=== PATIENT | male | born 1930 | race Caucasian/White ===

== ENCOUNTER 2016-11-14 16:27 | Emergency (ER) | payer MEDICARE, BC ==
--- NOTE | 2016-11-14 17:08 | ED ---
Psych HPI - General Chief Complaint: Psychiatric Symptoms Stated Complaint: Psych Eval Time Seen by Provider: 11/14/16 16:50 Source: patient, family, RN notes reviewed Mode of arrival: ambulatory - History of Present Illness Initial Comments: This 86-year-old male with no prior history of dementia or psychiatric disorder but there is a strong family history of dementia and about his age who was brought in by family for evaluation. 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 He did no reports of fevers chills sweats or head trauma however. No focal weakness to his arms or legs. MD Complaint: altered mental status - Related Data Home Medications Medication Instructions Recorded Confirmed Donepezil [Aricept] 10 mg PO W/SUPPER 04/15/15 11/14/16 Memantine HCl [Namenda Xr] 28 mg PO DAILY 04/15/15 11/14/16 Telmisartan 80 mg PO DAILY 04/15/15 11/14/16 Naproxen Sodium [Aleve] 440 mg PO HS PRN 11/14/16 11/14/16 Previous Rx's Medication Instructions Recorded Acetaminophen Tab [Tylenol] 650 mg PO Q6HR PRN #0 tab 04/16/15 ALPRAZolam [Xanax] 0.25 mg PO DAILY PRN #10 tab 11/14/16 Allergies Allergy/AdvReac Type Severity Reaction Status Date / Time No Known Allergies Allergy Verified 11/14/16 17:11 Review of Systems ROS Statement: Those systems with pertinent positive or pertinent negative responses have been documented in the HPI. ROS Other: All systems not noted in ROS Statement are negative. Past Medical History Past Medical History: Dementia, Eye Disorder, GERD/Reflux, Hypertension, Memory Impairment Additional Past Medical History / Comment(s): kidney stone, cataracts History of Any Multi-Drug Resistant Organisms: None Reported Past Surgical History: Appendectomy, Back Surgery, Cholecystectomy Additional Past Surgical History / Comment(s): kidney stone removed Past Anesthesia/Blood Transfusion Reactions: No Reported Reaction Past Psychological History: No Psychological Hx Reported Additional Psychological History / Comment(s): pt is retired, lives at home with his . pt has dementia but is able to read/write and care for self at home but has memeory problems. Smoking Status: Never smoker Past Alcohol Use History: None Reported Past Drug Use History: None Reported - Past Family History Father Family Medical History: Cancer, Dementia Additional Family Medical History / Comment(s): lung/throat cancer General Exam - General Exam Comments Initial Comments: This a well-developed well-nourished awake alert but somewhat confused male Limitations: altered mental status General appearance: alert, in no apparent distress Head exam: Present: atraumatic, normocephalic, normal inspection Eye exam: Present: normal appearance, PERRL, EOMI. Absent: scleral icterus, conjunctival injection, periorbital swelling ENT exam: Present: normal exam Neck exam: Present: normal inspection. Absent: tenderness, meningismus, lymphadenopathy Respiratory exam: Present: normal lung sounds bilaterally. Absent: respiratory distress, wheezes, rales, rhonchi, stridor Cardiovascular Exam: Present: regular rate, normal rhythm, normal heart sounds. Absent: systolic murmur, diastolic murmur, rubs, gallop, clicks GI/Abdominal exam: Present: soft, normal bowel sounds. Absent: distended, tenderness, guarding, rebound, rigid Extremities exam: Present: normal inspection, full ROM, normal capillary refill. Absent: tenderness, pedal edema, joint swelling, calf tenderness Back exam: Present: normal inspection Neurological exam: Present: alert, oriented X3, CN II-XII intact Psychiatric exam: Present: agitated, flat affect Skin exam: Present: warm, dry, intact, normal color. Absent: rash Course Vital Signs 11/14/16 11/14/16 16:41 19:20 Temperature 98.4 F Pulse Rate 98 56 L Respiratory 20 18 Rate Blood Pressure 221/109 149/78 O2 Sat by Pulse 99 100 Oximetry Medical Decision Making - Medical Decision Making The patient was evaluated by psychiatric service he currently a risk to himself or anyone else he'll be discharged with outpatient follow-up he will be placed on Xanax 0.25 mg when necessary - Lab Data Result diagrams: 11/14/16 17:30 11/14/16 17:30 Lab Results 11/14/16 11/14/16 11/14/16 Range/Units 17:30 17:30 17:30 WBC 8.0 (3.8-10.6) k/uL RBC 4.08 L (4.30-5.90) m/uL Hgb 13.1 (13.0-17.5) gm/dL Hct 39.2 (39.0-53.0) % MCV 96.0 (80.0-100.0) fL MCH 32.2 (25.0-35.0) pg MCHC 33.6 (31.0-37.0) g/dL RDW 13.0 (11.5-15.5) % Plt Count 189 (150-450) k/uL Neutrophils % 74 % Lymphocytes % 16 % Monocytes % 7 % Eosinophils % 1 % Basophils % 1 % Neutrophils # 5.9 (1.3-7.7) k/uL Lymphocytes # 1.3 (1.0-4.8) k/uL Monocytes # 0.5 (0-1.0) k/uL Eosinophils # 0.1 (0-0.7) k/uL Basophils # 0.0 (0-0.2) k/uL Sodium 142 (137-145) mmol/L Potassium 3.9 (3.5-5.1) mmol/L Chloride 100 (98-107) mmol/L Carbon Dioxide 31 H (22-30) mmol/L Anion Gap 11 mmol/L BUN 22 H (9-20) mg/dL Creatinine 1.33 H (0.66-1.25) mg/dL Est GFR (MDRD) Af Amer >60 (>60 ml/min/1.73 sqM) Est GFR (MDRD) Non-Af 51 (>60 ml/min/1.73 sqM) Glucose 98 (74-99) mg/dL Calcium 9.5 (8.4-10.2) mg/dL Magnesium 1.9 (1.6-2.3) mg/dL Total Bilirubin 1.1 (0.2-1.3) mg/dL AST 20 (17-59) U/L ALT 36 (21-72) U/L Alkaline Phosphatase 104 (38-126) U/L Total Creatine Kinase 155 (55-170) U/L CK-MB (CK-2) 2.8 H* (0.0-2.4) ng/mL CK-MB (CK-2) Rel Index 1.8 Total Protein 6.9 (6.3-8.2) g/dL Albumin 4.3 (3.5-5.0) g/dL TSH 1.700 (0.465-4.680) mIU/L Urine Color Urine Appearance (Clear) Urine pH (5.0-8.0) Ur Specific [place] (1.001-1.035) Urine Protein (Negative) Urine Glucose (UA) (Negative) Urine Ketones (Negative) Urine Blood (Negative) Urine Nitrate (Negative) Urine Bilirubin (Negative) Urine Urobilinogen (<2.0) mg/dL Ur Leukocyte Esterase (Negative) Urine RBC (0-5) /hpf Ur Squamous Epith Cells (0-4) /hpf Urine Bacteria (None) /hpf Hyaline Casts (0-2) /lpf Urine Mucus (None) /hpf Urine Opiates Screen (NotDetected) Ur Oxycodone Screen (NotDetected) Urine Methadone Screen (NotDetected) Ur Propoxyphene Screen (NotDetected) Ur Barbiturates Screen (NotDetected) U Tricyclic Antidepress (NotDetected) Ur Phencyclidine Scrn (NotDetected) Ur Amphetamines Screen (NotDetected) U Methamphetamines Scrn (NotDetected) U Benzodiazepines Scrn (NotDetected) Urine Cocaine Screen (NotDetected) U Marijuana (THC) Screen (NotDetected) Serum Alcohol <10 mg/dL 11/14/16 11/14/16 Range/Units 19:26 19:26 WBC (3.8-10.6) k/uL RBC (4.30-5.90) m/uL Hgb (13.0-17.5) gm/dL Hct (39.0-53.0) % MCV (80.0-100.0) fL MCH (25.0-35.0) pg MCHC (31.0-37.0) g/dL RDW (11.5-15.5) % Plt Count (150-450) k/uL Neutrophils % % Lymphocytes % % Monocytes % % Eosinophils % % Basophils % % Neutrophils # (1.3-7.7) k/uL Lymphocytes # (1.0-4.8) k/uL Monocytes # (0-1.0) k/uL Eosinophils # (0-0.7) k/uL Basophils # (0-0.2) k/uL Sodium (137-145) mmol/L Potassium (3.5-5.1) mmol/L Chloride (98-107) mmol/L Carbon Dioxide (22-30) mmol/L Anion Gap mmol/L BUN (9-20) mg/dL Creatinine (0.66-1.25) mg/dL Est GFR (MDRD) Af Amer (>60 ml/min/1.73 sqM) Est GFR (MDRD) Non-Af (>60 ml/min/1.73 sqM) Glucose (74-99) mg/dL Calcium (8.4-10.2) mg/dL Magnesium (1.6-2.3) mg/dL Total Bilirubin (0.2-1.3) mg/dL AST (17-59) U/L ALT (21-72) U/L Alkaline Phosphatase (38-126) U/L Total Creatine Kinase (55-170) U/L CK-MB (CK-2) (0.0-2.4) ng/mL CK-MB (CK-2) Rel Index Total Protein (6.3-8.2) g/dL Albumin (3.5-5.0) g/dL TSH (0.465-4.680) mIU/L Urine Color Yellow Urine Appearance Cloudy (Clear) Urine pH 5.5 (5.0-8.0) Ur Specific [place] 1.015 (1.001-1.035) Urine Protein Trace H (Negative) Urine Glucose (UA) Negative (Negative) Urine Ketones Negative (Negative) Urine Blood Negative (Negative) Urine Nitrate Negative (Negative) Urine Bilirubin Negative (Negative) Urine Urobilinogen <2.0 (<2.0) mg/dL Ur Leukocyte Esterase Negative (Negative) Urine RBC 12 H (0-5) /hpf Ur Squamous Epith Cells <1 (0-4) /hpf Urine Bacteria Many H (None) /hpf Hyaline Casts 2 (0-2) /lpf Urine Mucus Rare H (None) /hpf Urine Opiates Screen Not Detected (NotDetected) Ur Oxycodone Screen Not Detected (NotDetected) Urine Methadone Screen Not Detected (NotDetected) Ur Propoxyphene Screen Not Detected (NotDetected) Ur Barbiturates Screen Not Detected (NotDetected) U Tricyclic Antidepress Not Detected (NotDetected) Ur Phencyclidine Scrn Not Detected (NotDetected) Ur Amphetamines Screen Not Detected (NotDetected) U Methamphetamines Scrn Not Detected (NotDetected) U Benzodiazepines Scrn Not Detected (NotDetected) Urine Cocaine Screen Not Detected (NotDetected) U Marijuana (THC) Screen Not Detected (NotDetected) Serum Alcohol mg/dL - EKG Data -: EKG Interpreted by Me (Atrial fibrillation rate is 73 QRS of 98 daily since QTC of 432/475 old inf) - Radiology Data Radiology results: report reviewed (Exam was unremarkable), image reviewed Disposition Clinical Impression: Dementia Disposition: HOME SELF-CARE Condition: Good Instructions: Dementia (ED) Prescriptions: ALPRAZolam [Xanax] 0.25 mg PO DAILY PRN #10 tab PRN Reason: Anxiety
[2016-11-14 17:46] LABS: Basophils % (A) 1 %; CH 32.9; CHCM 34.5; Eosinophils # (A) 0.1 k/uL (0-0.7); Eosinophils % (A) 1 %; HCT 39.2 % (39.0-53.0); HDW 2.81; HGB 13.1 gm/dL (13.0-17.5); Luc # (Auto) 0.15; Luc % (Auto) 2; Lymphocytes # (A) 1.3 k/uL (1.0-4.8); Lymphocytes % (A) 16 %; MCH 32.2 pg (25.0-35.0); MCHC 33.6 g/dL (31.0-37.0); Mean Platelet Volume 7.6; Monocytes # (A) 0.5 k/uL (0-1.0); Monocytes % (A) 7 %; Neutrophils # (A) 5.9 k/uL (1.3-7.7); Neutrophils % (A) 74 %; RBC 4.08 m/uL (4.30-5.90); WBC (Perox) 8.15
[2016-11-14 17:55] LABS: ALT 36 U/L (21-72); AST 20 U/L (17-59); Alcohol <10 mg/dL; Alkaline Phosphatase 104 U/L (38-126); Anion Gap 11 mmol/L; Blood Urea Nitrogen 22 mg/dL (9-20); Calcium 9.5 mg/dL (8.4-10.2); Carbon Dioxide 31 mmol/L (22-30); Chloride 100 mmol/L (98-107); Glucose 98 mg/dL (74-99); Magnesium 1.9 mg/dL (1.6-2.3); Non-African American GFR(MDRD) 51 (>60 ml/min/1.73 sqM); Potassium 3.9 mmol/L (3.5-5.1); Sodium 142 mmol/L (137-145); Total Bilirubin 1.1 mg/dL (0.2-1.3); Total Protein 6.9 g/dL (6.3-8.2)
[2016-11-14 18:25] LABS: Creatine Kinase MB 2.8 ng/mL (0.0-2.4)
--- NOTE | 2016-11-14 18:34 | XR ---
EXAMINATION TYPE: XR chest 2V DATE OF EXAM: 11/14/2016 6:13 PM COMPARISON: Prior chest x-ray 15 April 2015 HISTORY: Trauma, altered mental status TECHNIQUE: Frontal and lateral views of the chest are obtained. FINDINGS: The patient is rotated. Postop changes are noted at the cervicothoracic junction. No pneum othorax or pleural effusion is evident. There is eventration of the right hemidiaphragm. Cardiomedias tinal silhouette, pulmonary vascularity and sunitha are stable. Prominent lung volume may be indicative of COPD. IMPRESSION: No acute cardiopulmonary process.
--- NOTE | 2016-11-14 18:51 | CT ---
EXAMINATION TYPE: CT brain wo con DATE OF EXAM: 11/14/2016 6:42 PM COMPARISON: Prior CT brain 15 April 2015 HISTORY: Altered mental status. CT DLP: 1225.00 mGycm Automated exposure control for dose reduction was used. FINDINGS: There is no acute intracranial hemorrhage, mass effect, or midline shift identified. The ventricles and sulci are within normal limits in size. Cortical atrophy is again noted. White matter demyelinati on in the periventricular locations is again seen. The globes are intact and the visualized sinuses are clear. IMPRESSION: No acute intracranial hemorrhage, mass effect, or midline shift is seen.
[2016-11-14 19:20] VITALS: RESP 18
[2016-11-14 20:12] LABS: Appearance,Urine Cloudy (Clear); Bacteria,Urine Many /hpf; Bilirubin,Urine Negative (Negative); Glucose,Urine (UA) Negative (Negative); Ketones,Urine Negative (Negative); Leukocyte Esterase,Urine Negative (Negative); Mucus,Urine Rare /hpf; Nitrite,Urine Negative (Negative); PH, Urine 5.5 (5.0-8.0); Particle Count 5964; Protein,Urine Trace (Negative); RBC,Urine 12 /hpf (0-5); Specific Gravity,Urine 1.015 (1.001-1.035); Squamous Epithelial Cell,Urine <1 /hpf (0-4); UA Billing (MACRO vs. MICRO) MICRO; Urobilinogen,Urine <2.0 mg/dL (<2.0)
[2016-11-14] MEDS ORDERED: ALPRAZolam 0.25 MG TAB PO STA (21:15)
[2016-11-14 21:32] VITALS: BP 171/82; PULSE 85; TEMP 97.4
== END 2016-11-14 21:43 | disposition home or self-care (01) ==
LOC: EC 16:27
DX: F03.90 Unspecified dementia, unspecified severity, without behavioral disturbance, psychotic disturbance, mood disturbance, and anxiety (principal); I10 Essential (primary) hypertension; Z79.899 Other long term (current) drug therapy
CPT/HCPCS: 36415; 70450; 71020; 80053; 80306; 80320; 81001; 82550; 82553; 83735; 84443; 85025; 93005; 99285

== ENCOUNTER 2017-02-26 21:26 | Inpatient (IN) | payer MEDICARE, BC ==
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
[2017-02-26 22:54] LABS: Basophils % (A) 0 %; CHCM 33.7; Eosinophils # (A) 0.1 k/uL (0-0.7); Eosinophils % (A) 1 %; HCT 35.2 % (39.0-53.0); HDW 2.67; HGB 11.8 gm/dL (13.0-17.5); Luc # (Auto) 0.17; Luc % (Auto) 3; Lymphocytes # (A) 1.2 k/uL (1.0-4.8); Lymphocytes % (A) 17 %; MCH 33.1 pg (25.0-35.0); MCHC 33.6 g/dL (31.0-37.0); MCV 98.6 fL (80.0-100.0); Mean Platelet Volume 7.3; Monocytes # (A) 0.4 k/uL (0-1.0); Monocytes % (A) 6 %; Neutrophils # (A) 4.9 k/uL (1.3-7.7); Neutrophils % (A) 73 %; RBC 3.57 m/uL (4.30-5.90); RDW 13.1 % (11.5-15.5); WBC 6.7 k/uL (3.8-10.6)
--- NOTE | 2017-02-26 22:57 | CT ---
INDICATION: Pain TECHNIQUE: CT acquisition was performed through the head without the administration of intravenous contrast. This CT exam was performed using one or more of the following dose reduction techniques: automated exposure control, adjustment of the mA and/or kV according to patient size, and/or use of iterative reconstruction technique. DOSIMETRY: CTDIvol 58 mGy; DLP 1179.80 mGy-cm. COMPARISON: CT head 11/14/16 FINDINGS: There is no evidence of acute intracranial hemorrhage or abnormal extra-axial fluid collection. There is no mass effect or midline shift. There is central and cortical cerebral atrophy and cerebellar atrophy, similar to prior exam. Patchy hypoattenuation in the cerebral white matter is compatible with chronic small vessel ischemic disease. Giles-white matter differentiation is preserved. There is intracranial atherosclerosis. There is no evidence of skull fracture. The visualized paranasal sinuses and mastoid air cells are clear. IMPRESSION: 1. No significant interval change from prior CT. No evidence of acute intracranial process.
[2017-02-26 23:10] LABS: ALT 30 U/L (21-72); AST 23 U/L (17-59); Alkaline Phosphatase 95 U/L (38-126); Anion Gap 8 mmol/L; Appearance,Urine Cloudy (Clear); Bacteria,Urine Rare /hpf; Bilirubin,Urine Negative (Negative); Blood Urea Nitrogen 26 mg/dL (9-20); Carbon Dioxide 29 mmol/L (22-30); Chloride 103 mmol/L (98-107); Glucose 102 mg/dL (74-99); Glucose,Urine (UA) Negative (Negative); Ketones,Urine Negative (Negative); Leukocyte Esterase,Urine Trace (Negative); Magnesium 1.9 mg/dL (1.6-2.3); Mucus,Urine Few /hpf; Nitrite,Urine Negative (Negative); Non-African American GFR(MDRD) 57 (>60 ml/min/1.73 sqM); PH, Urine 5.5 (5.0-8.0); Particle Count 9638; Potassium 3.8 mmol/L (3.5-5.1); Protein,Urine Trace (Negative); RBC,Urine 9 /hpf (0-5); Sodium 140 mmol/L (137-145); Squamous Epithelial Cell,Urine 2 /hpf (0-4); Total Bilirubin 1.1 mg/dL (0.2-1.3); Total Protein 6.2 g/dL (6.3-8.2); UA Billing (MACRO vs. MICRO) MICRO; Urobilinogen,Urine <2.0 mg/dL (<2.0); WBC,Urine 15 /hpf (0-5)
--- NOTE | 2017-02-26 23:13 | XR ---
Chest PA and lateral views INDICATION: Dyspnea COMPARISON: CXR 11/14/16 FINDINGS: PA and lateral views of the chest are obtained. Redemonstrated flattening of the hemidiaphragms suggests underlying chronic obstructive pulmonary disease. Lung volumes are mildly decreased in comparison to prior exam with increased bibasilar interstitial markings most likely representing subsegmental atelectasis. There is no confluent airspace consolidation, pleural effusion, or pneumothorax. Cardiomediastinal silhouette remains stable. There are no acute osseous findings. There is been prior ACDF in the lower cervical spine. IMPRESSION: 1. Reduced lung volumes with bibasilar subsegmental atelectasis. 2. COPD, as suggested on prior exam.
[2017-02-27] MEDS ORDERED: LORazepam 1 MG TAB PO STA (01:03)
[2017-02-27] MEDS ORDERED: LORazepam 2 MG/ML SYRINGE IM STA (02:20)
[2017-02-27] MEDS ORDERED: LORazepam 1 MG TAB PO PRN (04:42)
[2017-02-27] MEDS ORDERED: MAGNESIUM HYDROXIDE 2,400 MG/10 ML CUP PO PRN (04:42)
[2017-02-27] MEDS ORDERED: MAG HYDROX/AL HYDROX/SIMETH 30 ML CUP PO PRN (04:42)
[2017-02-27] MEDS ORDERED: ACETAMINOPHEN TAB 325 MG TAB PO PRN (04:42)
[2017-02-27] MEDS ORDERED: ZIPRASIDONE 20 MG VIAL IM PRN (04:42)
[2017-02-27] MEDS ORDERED: guaiFENesin 600 MG TABLET.ER PO PRN (04:47)
[2017-02-27] MEDS ORDERED: LORazepam 2 MG/ML SYRINGE IM PRN (04:50)
[2017-02-27] MEDS: CHOLECALCIFEROL 1,000 UNIT TAB PO SCH (09:47)
[2017-02-27] MEDS: LOSARTAN 50 MG TAB PO SCH (09:47)
[2017-02-27] MEDS: CYANOCOBALAMIN 500 MCG TAB PO SCH (09:47)
[2017-02-27] MEDS: FOLIC ACID 1 MG TAB PO SCH (09:47)
[2017-02-27] MEDS: MEMANTINE 10 MG TAB PO SCH ×2 (09:48→21:07)
[2017-02-27] MEDS: FAMOTIDINE 20 MG TAB PO SCH (09:49)
[2017-02-27] MEDS ORDERED: FLUoxetine HCL 10 MG CAP PO STA (10:50)
[2017-02-27] MEDS ORDERED: OLANZapine 2.5 MG TAB PO STA (10:51)
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
[2017-02-27 14:25] LABS: Magnesium 1.9 mg/dL (1.6-2.3)
[2017-02-27] MEDS ORDERED: DONEPEZIL 10 MG TAB PO SCH (17:30)
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
[2017-02-27] MEDS: OLANZapine 2.5 MG TAB PO SCH (21:07)
[2017-02-28] MEDS: OLANZapine 5 MG TAB PO PRN (00:25)
[2017-02-28] MEDS ORDERED: HALOPERIDOL LACTATE 5 MG/ML 1 ML VIAL IM STA (02:35)
[2017-02-28 09:43] LABS: Basophils % (A) 0 %; CHCM 32.9; Eosinophils # (A) 0.1 k/uL (0-0.7); Eosinophils % (A) 1 %; HCT 36.3 % (39.0-53.0); HDW 2.61; HGB 11.9 gm/dL (13.0-17.5); Luc # (Auto) 0.13; Luc % (Auto) 2; Lymphocytes # (A) 1.2 k/uL (1.0-4.8); Lymphocytes % (A) 19 %; MCH 33.2 pg (25.0-35.0); MCHC 32.8 g/dL (31.0-37.0); MCV 101.2 fL (80.0-100.0); Macrocytosis Slight; Mean Platelet Volume 6.9; Monocytes # (A) 0.3 k/uL (0-1.0); Monocytes % (A) 5 %; Neutrophils # (A) 4.4 k/uL (1.3-7.7); Neutrophils % (A) 73 %; RBC 3.59 m/uL (4.30-5.90); WBC 6.1 k/uL (3.8-10.6); WBC (Perox) 6.73
[2017-02-28 10:11] LABS: ALT 31 U/L (21-72); AST 30 U/L (17-59); Alkaline Phosphatase 96 U/L (38-126); Anion Gap 10 mmol/L; Blood Urea Nitrogen 23 mg/dL (9-20); Calcium 9.2 mg/dL (8.4-10.2); Carbon Dioxide 31 mmol/L (22-30); Chloride 101 mmol/L (98-107); Glucose 135 mg/dL (74-99); Non-African American GFR(MDRD) >60 (>60 ml/min/1.73 sqM); Potassium 3.5 mmol/L (3.5-5.1); Sodium 142 mmol/L (137-145); Total Protein 6.6 g/dL (6.3-8.2)
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
[2017-02-28] MEDS ORDERED: FLUoxetine HCL 10 MG CAP PO SCH (11:00)
[2017-02-28] MEDS: CYANOCOBALAMIN 500 MCG TAB PO SCH (12:30)
[2017-02-28] MEDS: CHOLECALCIFEROL 1,000 UNIT TAB PO SCH (12:30)
[2017-02-28] MEDS: OLANZapine 2.5 MG TAB PO SCH ×2 (12:31→17:41)
[2017-02-28] MEDS: LOSARTAN 50 MG TAB PO SCH (12:31)
[2017-02-28] MEDS: FOLIC ACID 1 MG TAB PO SCH (12:31)
[2017-02-28] MEDS: FAMOTIDINE 20 MG TAB PO SCH (12:31)
[2017-02-28] MEDS: FLUoxetine HCL 10 MG CAP PO SCH (12:31)
[2017-02-28] MEDS: MEMANTINE 10 MG TAB PO SCH ×2 (12:31→21:53)
[2017-02-28] MEDS ORDERED: HALOPERIDOL LACTATE 5 MG/ML 1 ML VIAL IM PRN (16:23)
[2017-02-28] MEDS: FAMCICLOVIR 500 MG TAB PO SCH ×2 (17:41→23:40)
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
[2017-02-28] MEDS ORDERED: amLODIPine 10 MG TAB PO SCH (21:00)
[2017-02-28] MEDS: OLANZapine 5 MG TAB PO SCH (21:53)
[2017-03-01] MEDS: FOLIC ACID 1 MG TAB PO SCH (09:22)
[2017-03-01] MEDS: FAMOTIDINE 20 MG TAB PO SCH (09:22)
[2017-03-01] MEDS: LOSARTAN 50 MG TAB PO SCH (09:22)
[2017-03-01] MEDS: FAMCICLOVIR 500 MG TAB PO SCH ×2 (09:22→17:42)
[2017-03-01] MEDS: FLUoxetine HCL 10 MG CAP PO SCH (09:22)
[2017-03-01] MEDS: CHOLECALCIFEROL 1,000 UNIT TAB PO SCH (09:22)
[2017-03-01] MEDS: CYANOCOBALAMIN 500 MCG TAB PO SCH (09:22)
[2017-03-01] MEDS: MEMANTINE 10 MG TAB PO SCH ×2 (09:23→21:13)
[2017-03-01] MEDS: OLANZapine 2.5 MG TAB PO SCH ×2 (10:13→17:42)
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
[2017-03-01] MEDS: ZINC SULFATE 220 MG CAP PO SCH (12:45)
[2017-03-01] MEDS: OLANZapine 5 MG TAB PO SCH (21:12)
[2017-03-02] MEDS ORDERED: LORazepam 2 MG/ML SYRINGE IM ONE (00:05)
[2017-03-02] MEDS: FAMCICLOVIR 500 MG TAB PO SCH ×4 (02:23→16:41)
[2017-03-02] MEDS ORDERED: amLODIPine 5 MG TAB PO SCH (09:00)
[2017-03-02] MEDS: OLANZapine 2.5 MG TAB PO SCH ×3 (10:25→16:42)
[2017-03-02] MEDS: MEMANTINE 10 MG TAB PO SCH ×3 (10:25→21:08)
[2017-03-02] MEDS: LOSARTAN 50 MG TAB PO SCH (10:25)
[2017-03-02] MEDS: CYANOCOBALAMIN 500 MCG TAB PO SCH ×2 (10:26→13:41)
[2017-03-02] MEDS: CHOLECALCIFEROL 1,000 UNIT TAB PO SCH ×2 (10:26→13:41)
[2017-03-02] MEDS: amLODIPine 5 MG TAB PO SCH ×2 (10:27→13:41)
[2017-03-02] MEDS: OLANZapine 5 MG TAB PO PRN (10:30)
[2017-03-02] MEDS: FAMOTIDINE 20 MG TAB PO SCH ×2 (10:30→13:42)
[2017-03-02] MEDS: FLUoxetine HCL 10 MG CAP PO SCH ×2 (10:30→13:42)
[2017-03-02] MEDS: FOLIC ACID 1 MG TAB PO SCH ×2 (10:30→13:42)
[2017-03-02] MEDS: ZINC SULFATE 220 MG CAP PO SCH (13:34)
--- NOTE | 2017-03-02 15:19 | P.PN ---
Progress Note - Text Interval history: The patient is found in his room he is resting in bed he continues to have one-to-one supervision as he is a fall risk. The patient is verbally arousable he makes brief eye contact. He does not answer any questions in a relevant fashion. He tends to mumble and it seems he is not understanding the question asked. During the course of the day he has been in his room. It appears social work met with the family for a family meeting those notes are reviewed and they are requesting ECF placement. The patient is on Zyprexa to control aggressiveness and psychosis. Mental status exam: The patient is lying in bed he is in no acute distress. He is verbally arousable but appears lethargic. He makes brief eye contact and then closes his eyes again. Speech is nonspontaneous he tries to offer an answer to questions asked but it is not relevant. He is dressed in hospital attire and covered with a blanket. No abnormal involuntary movements observed. Insight and judgment poor. Plan: The patient will continue on his current medication we will monitor for safety vital signs reviewed blood pressure elevated today. The patient is able to get up with staff assistance we will continue the one-to-one supervision for acute fall risk.
[2017-03-02] MEDS: OLANZapine 5 MG TAB PO SCH (21:08)
[2017-03-03] MEDS ORDERED: LORazepam 1 MG TAB PO PRN (00:26)
[2017-03-03] MEDS: FAMCICLOVIR 500 MG TAB PO SCH ×5 (00:43→17:00)
[2017-03-03] MEDS: FAMOTIDINE 20 MG TAB PO SCH ×2 (09:55→10:16)
[2017-03-03] MEDS: CYANOCOBALAMIN 500 MCG TAB PO SCH ×2 (09:56→10:16)
[2017-03-03] MEDS: FLUoxetine HCL 10 MG CAP PO SCH (09:56)
[2017-03-03] MEDS: FOLIC ACID 1 MG TAB PO SCH ×2 (09:56→10:16)
[2017-03-03] MEDS: CHOLECALCIFEROL 1,000 UNIT TAB PO SCH ×2 (09:56→10:14)
[2017-03-03] MEDS: LOSARTAN 50 MG TAB PO SCH (09:56)
[2017-03-03] MEDS: MEMANTINE 10 MG TAB PO SCH ×2 (09:56→20:58)
[2017-03-03] MEDS: amLODIPine 5 MG TAB PO SCH (09:56)
[2017-03-03] MEDS: OLANZapine 2.5 MG TAB PO SCH ×3 (09:57→20:58)
--- NOTE | 2017-03-03 10:45 | P.PN ---
Progress Note - Text Interval history: The patient is found in his room he is in a chair next to his bed he continues to have a health and safety consultant as he remains a fall risk. Nursing reports that the patient has been sedated mostly yesterday through the evening. The patient did not eat yesterday because of sedation but the health and safety consultant is making efforts to keep the patient hydrated. Nursing was able to give the patient his medication with some applesauce. We discussed reducing the dose of Zyprexa. Mental status exam: The patient is lying back in a reclining chair. Eye contact is poor he is verbally arousable more so than yesterday. He mumbles and has irrelevant answers to questions asked. He becomes mildly agitated with questioning but demonstrates no physical aggressiveness. His health and safety consultant states that there was no physical aggressive behavior during her shift. The patient is not oriented to place or date. He is lying comfortably in the chair in no acute distress. Insight and judgment are poor. He does struggle with major neurocognitive symptoms. Plan: We will reduce the Zyprexa 2.5 mg twice daily the morning dose was held. It seems to be a delicate balance between controlling the patient's agitated behavior with medication and not over sedating him. Vital signs reviewed. We will continue to monitor him for safety he will remain on one-to-one supervision. We will continue to monitor his oral input.
[2017-03-03] MEDS: ZINC SULFATE 220 MG CAP PO SCH (13:48)
[2017-03-04] MEDS: FAMCICLOVIR 500 MG TAB PO SCH ×4 (00:46→18:30)
[2017-03-04] MEDS: CYANOCOBALAMIN 500 MCG TAB PO SCH ×2 (10:56→11:06)
[2017-03-04] MEDS: CHOLECALCIFEROL 1,000 UNIT TAB PO SCH ×2 (10:56→11:06)
[2017-03-04] MEDS: amLODIPine 5 MG TAB PO SCH ×2 (10:56→11:06)
[2017-03-04] MEDS: OLANZapine 2.5 MG TAB PO SCH ×2 (10:57→11:07)
[2017-03-04] MEDS: MEMANTINE 10 MG TAB PO SCH ×2 (10:57→11:07)
[2017-03-04] MEDS: LOSARTAN 50 MG TAB PO SCH ×2 (10:57→11:07)
[2017-03-04] MEDS: FOLIC ACID 1 MG TAB PO SCH ×2 (10:57→11:07)
[2017-03-04] MEDS: FLUoxetine HCL 10 MG CAP PO SCH ×2 (11:00→11:07)
[2017-03-04] MEDS: FAMOTIDINE 20 MG TAB PO SCH ×2 (11:00→11:06)
[2017-03-04] MEDS: ZINC SULFATE 220 MG CAP PO SCH (14:25)
--- NOTE | 2017-03-04 15:26 | P.PN ---
Progress Note - Text SUBJECTIVE: I reviewed the medical record, attempted to interview Mr. Jeffries and discuss his treatment and treatment plan during team meeting. He was sleeping in a chair trial when I approached him. His one-to-one sitter was in attendance. He did not respond to his name. OBJECTIVE: He presented as a disheveled and sedated appearing elderly male. He did not respond to his name. His respiration was even. His pulse was 77 and his blood pressure is 161/78. He had an episode of agitation last night and received 1 mg of lorazepam by mouth at 00 43 in addition to his regular dosing of olanzapine 2.5 mg twice a day. 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 He is markedly sedated most likely from a combination of olanzapine and lorazepam. PLAN: Continue inpatient hospitalization pending placement in an extended care facility. Decrease olanzapine to 1.25 mg twice a day for agitation. Continue lorazepam 1 mg by mouth daily at bedtime when necessary for agitation or Anxiety , Haldol 5 mg IM daily when necessary for agitation acute psychosis and is continue Zyprexa 5 mg by mouth twice a day when necessary for agitation or Psychosis. Continue one-to-one.
[2017-03-04] MEDS ORDERED: MIDAZOLAM (PF) 1 MG/ML 5 ML VIAL ONE (16:53)
[2017-03-04 17:20] VITALS: BP 146/88; PULSE 84; RESP 16; TEMP 98.4
[2017-03-04 18:41] LABS: Glucose,Whole Blood 146 mg/dL (75-99)
[2017-03-04] MEDS ORDERED: OLANZapine 2.5 MG TAB PO SCH (21:00)
== END 2017-03-04 18:38 | disposition short-term general hospital (02) | DRG 884 ==
LOC: EC 21:26 → 3MHU 02-27 04:19
PROVIDERS: ADMIT Psychiatry & Neurology Psychiatry; ATTEND Psychiatry & Neurology Psychiatry
DX: F03.91 Unspecified dementia, unspecified severity, with behavioral disturbance (principal); D69.6 Thrombocytopenia, unspecified; I11.9 Hypertensive heart disease without heart failure; N18.3 Chronic kidney disease, stage 3 (moderate); N39.0 Urinary tract infection, site not specified; E86.0 Dehydration; D64.9 Anemia, unspecified; F32.9 Major depressive disorder, single episode, unspecified; K21.9 Gastro-esophageal reflux disease without esophagitis; N40.0 Benign prostatic hyperplasia without lower urinary tract symptoms; Z79.899 Other long term (current) drug therapy; Z91.81 History of falling; B02.9 Zoster without complications
CPT/HCPCS: 36415; 70450; 71020; 80053; 81001; 82103; 82306; 82607; 83735; 84439; 84443; 84481; 84630; 85025; 87086; 96372; 99285

== ENCOUNTER 2017-03-04 18:46 | Inpatient (IN) | payer MEDICARE, BC ==
[2017-03-04] MEDS ORDERED: SODIUM CHLORIDE 0.9% 1,000 ML IV ONE ×2 (19:17→21:15)
[2017-03-04] MEDS ORDERED: PROPOFOL 50 ML IV ONE (19:22)
[2017-03-04] MEDS ORDERED: DILTIAZEM 5 MG/ML 5 ML VIAL IVP STA (19:45)
[2017-03-04 19:53] LABS: Basophils % (A) 0 %; CH 32.7; CHCM 32.3; Eosinophils % (A) 0 %; HCT 34.8 % (39.0-53.0); HDW 2.42; HGB 11.3 gm/dL (13.0-17.5); Luc # (Auto) 0.22; Luc % (Auto) 2; Lymphocytes # (A) 1.1 k/uL (1.0-4.8); Lymphocytes % (A) 9 %; MCHC 32.4 g/dL (31.0-37.0); MCV 101.8 fL (80.0-100.0); Macrocytosis Slight; Mean Platelet Volume 7.1; Monocytes # (A) 0.7 k/uL (0-1.0); Monocytes % (A) 6 %; Neutrophils # (A) 9.6 k/uL (1.3-7.7); Neutrophils % (A) 83 %; RBC 3.42 m/uL (4.30-5.90); RDW 13.1 % (11.5-15.5); WBC 11.6 k/uL (3.8-10.6); WBC (Perox) 12.08
[2017-03-04 19:59] LABS: Calcium 8.2 mg/dL (8.4-10.2); Magnesium 2.1 mg/dL (1.6-2.3); Phosphorous 7.3 mg/dL (2.5-4.5); Potassium 3.9 mmol/L (3.5-5.1); Total Bilirubin 1.2 mg/dL (0.2-1.3)
[2017-03-04] MEDS ORDERED: NALOXONE 0.4 MG/ML 1 ML VIAL IV PRN (19:59)
[2017-03-04] MEDS: SODIUM CHLORIDE 0.9% 1,000 ML IV ONE ×2 (20:00→21:13)
[2017-03-04] MEDS ORDERED: DILTIAZEM 125 MG in SODIUM CHLORIDE 0.9% 100 ML IV SCH (20:00)
[2017-03-04 20:05] LABS: ABG PCO2 44 mmHg (35-45); ABG PH 7.28 (7.35-7.45)
[2017-03-04 20:08] LABS: ABG Base Excess -6.1 mmol/L; ABG HCO3 20 mmol/L (21-25); ABG PO2 308 mmHg (83-108); ABG TCO2 14 mmol/L (19-24)
--- NOTE | 2017-03-04 20:55 | XR ---
EXAMINATION TYPE: XR chest 1V DATE OF EXAM: 03/04/2017 8:43 PM COMPARISON: February 26, 2017 HISTORY: Line placement TECHNIQUE: Single frontal view of the chest is obtained. FINDINGS: Patient is been intubated since the prior study, with the tip of the ET tube projecting ju st caudal to the level of the clavicular heads. There are no abnormal gas collections. Lungs appear clear bilaterally. Pleural spaces are negative. Giles-white mediastinal silhouette and wendi adam are unremarkable. The hemidiaphragms are elevated consistent with low lung inflation at the moment of x-ray exposure. IMPRESSION: No acute process - postintubation chest x-ray.
--- NOTE | 2017-03-04 21:10 | ED ---
Medical Decision Making - Medical Decision Making I was called to the floor for a medical code on the psychiatric unit. Upon arrival, the patient is unresponsive with significant difficulty in breathing and very slow respirations. His heart rate was quite tachycardiac up to 170 at one point. It initially looked regular but then was irregular. He apparently had been admitted into the psychiatric unit for the last 5 days. History relates that he had decreased oral intake. They found him unresponsive with a hard time breathing. Decision was made to initiate endotracheal intubation. The patient was intubated by the anesthesia team successfully. This did help to stabilize his condition. He had significant watery brown diarrhea prior to and after intubation. An IV was established and he was hydrated. His heart rate did come down to approximately 115 on last recheck. His EKG shows atrial fibrillation with rapid ventricular response. The patient was transported to the intensive care unit. He was oxygenating well on recheck. He did receive Versed 5 mg per anesthesia. Blood work, EKG, and computed tomography scan of the brain was ordered. Report is given to Dr. Farr and further care is deferred to his service in the intensive care unit team. - Lab Data Result diagrams: 03/04/17 19:38 03/04/17 19:38 Lab Results 03/04/17 03/04/17 03/04/17 Range/Units 18:50 19:38 19:38 WBC 11.6 H (3.8-10.6) k/uL RBC 3.42 L (4.30-5.90) m/uL Hgb 11.3 L (13.0-17.5) gm/dL Hct 34.8 L (39.0-53.0) % MCV 101.8 H (80.0-100.0) fL MCH 33.0 (25.0-35.0) pg MCHC 32.4 (31.0-37.0) g/dL RDW 13.1 (11.5-15.5) % Plt Count 166 (150-450) k/uL Neutrophils % 83 % Lymphocytes % 9 % Monocytes % 6 % Eosinophils % 0 % Basophils % 0 % Neutrophils # 9.6 H (1.3-7.7) k/uL Lymphocytes # 1.1 (1.0-4.8) k/uL Monocytes # 0.7 (0-1.0) k/uL Eosinophils # 0.0 (0-0.7) k/uL Basophils # 0.0 (0-0.2) k/uL Macrocytosis Slight Sample Site R RADIAL ABG pH 7.28 L (7.35-7.45) ABG pCO2 44 (35-45) mmHg ABG pO2 308 H (83-108) mmHg ABG HCO3 20 L (21-25) mmol/L ABG Total CO2 14 L (19-24) mmol/L ABG O2 Saturation 99.0 H (94-97) % ABG Base Excess -6.1 mmol/L FiO2 100 % Sodium 138 (137-145) mmol/L Potassium 3.9 (3.5-5.1) mmol/L Chloride 105 (98-107) mmol/L Carbon Dioxide 20 L (22-30) mmol/L Anion Gap 13 mmol/L BUN 76 H (9-20) mg/dL Creatinine 5.21 H* (0.66-1.25) mg/dL Est GFR (MDRD) Af Amer 13 (>60 ml/min/1.73 sqM) Est GFR (MDRD) Non-Af 11 (>60 ml/min/1.73 sqM) Glucose 174 H (74-99) mg/dL Plasma Lactic Acid Misael (0.7-2.0) mmol/L Calcium 8.2 L (8.4-10.2) mg/dL Phosphorus 7.3 H (2.5-4.5) mg/dL Magnesium 2.1 (1.6-2.3) mg/dL Total Bilirubin 1.2 (0.2-1.3) mg/dL AST 48 (17-59) U/L ALT 42 (21-72) U/L Alkaline Phosphatase 98 (38-126) U/L Total Protein 6.0 L (6.3-8.2) g/dL Albumin 3.3 L (3.5-5.0) g/dL 03/04/17 Range/Units 19:38 WBC (3.8-10.6) k/uL RBC (4.30-5.90) m/uL Hgb (13.0-17.5) gm/dL Hct (39.0-53.0) % MCV (80.0-100.0) fL MCH (25.0-35.0) pg MCHC (31.0-37.0) g/dL RDW (11.5-15.5) % Plt Count (150-450) k/uL Neutrophils % % Lymphocytes % % Monocytes % % Eosinophils % % Basophils % % Neutrophils # (1.3-7.7) k/uL Lymphocytes # (1.0-4.8) k/uL Monocytes # (0-1.0) k/uL Eosinophils # (0-0.7) k/uL Basophils # (0-0.2) k/uL Macrocytosis Sample Site ABG pH (7.35-7.45) ABG pCO2 (35-45) mmHg ABG pO2 (83-108) mmHg ABG HCO3 (21-25) mmol/L ABG Total CO2 (19-24) mmol/L ABG O2 Saturation (94-97) % ABG Base Excess mmol/L FiO2 % Sodium (137-145) mmol/L Potassium (3.5-5.1) mmol/L Chloride (98-107) mmol/L Carbon Dioxide (22-30) mmol/L Anion Gap mmol/L BUN (9-20) mg/dL Creatinine (0.66-1.25) mg/dL Est GFR (MDRD) Af Amer (>60 ml/min/1.73 sqM) Est GFR (MDRD) Non-Af (>60 ml/min/1.73 sqM) Glucose (74-99) mg/dL Plasma Lactic Acid Misael 3.1 H* (0.7-2.0) mmol/L Calcium (8.4-10.2) mg/dL Phosphorus (2.5-4.5) mg/dL Magnesium (1.6-2.3) mg/dL Total Bilirubin (0.2-1.3) mg/dL AST (17-59) U/L ALT (21-72) U/L Alkaline Phosphatase (38-126) U/L Total Protein (6.3-8.2) g/dL Albumin (3.5-5.0) g/dL Disposition Clinical Impression: Acute respiratory failure, Unresponsive, Atrial fibrillation with rapid ventricular response, Diarrhea, Mental status change Disposition: ADMITTED IP TO THIS HOSP Condition: Critical
[2017-03-04 22:27] LABS: Appearance,Urine Turbid (Clear); Bilirubin,Urine Negative (Negative); Glucose,Urine (UA) Negative (Negative); Ketones,Urine Negative (Negative); Leukocyte Esterase,Urine Large (Negative); Mucus,Urine Rare /hpf; Nitrite,Urine Negative (Negative); Particle Count 14933; Protein,Urine 1+ (Negative); RBC,Urine >182 /hpf (0-5); Specific Gravity,Urine 1.017 (1.001-1.035); Squamous Epithelial Cell,Urine 1 /hpf (0-4); UA Billing (MACRO vs. MICRO) MICRO; Urobilinogen,Urine <2.0 mg/dL (<2.0); WBC,Urine >182 /hpf (0-5)
[2017-03-04] MEDS ORDERED: Potassium Replacement Protocol 1 EACH MISC MISCELLANE PRN (22:43)
--- NOTE | 2017-03-04 22:46 | HP ---
DATE OF ADMISSION: 03/04/2017 CHIEF COMPLAINT: Unresponsiveness. HISTORY OF PRESENT ILLNESS: This 87-year-old gentleman was on the psychiatry unit. I was called by the nurse saying that the patient did not seem to be well this evening. His vital signs were stable but he looked ashen. No blood work had been done for a couple of days. I asked them to get some blood work, a chest x-ray and laboratory evaluation. I got a call back from the nurse that even before they had the blood work that he looked poor and a CODE was called. The patient had no loss of pulse. He was breathing. He appeared unresponsive and the patient was intubated. The patient had no CPR. The patient was brought into the ICU on a ventilator. The patient was in the psych unit for dementia with behavioral issues. He apparently had agitation and was threatening to attack his with a knife. The patient was seen by Dr. Medley in the psych unit. Dr. Medley is out of town and requested the patient be seen if there was any concern on the unit; that the unit would call. No history is available from the patient. Per Nursing, the patient had perfuse diarrhea just as this incident occurred. It was quite a foul-smelling diarrhea. Otherwise, for the past few days patient has had no other major changes. Patient's old records are reviewed. PAST MEDICAL HISTORY: According to the EKG back from November, the patient does have atrial fibrillation. He is noted in Dr. Medley's note to have a history of hypertension and hypertensive cardiovascular disease, history of prostatic disease; no clear definition on that. The patient does have advanced dementia. Possible COPD. No history of any heart disease, liver disease, kidney disease, ulcers, TB reported. No other history reported. The patient has a history of benign prostatic hypertrophy. Past surgical history is significant for appendectomy, back surgery, cholecystectomy. ( ) zoster. SOCIAL HISTORY: Patient is and lives with his spouse. FAMILY MEDICAL HISTORY: He has 3 brothers who are living, in adequate health. One brother and had dementia. He has a sister with a history of anxiety and another sister had dementia. Patient's children's history is not available. REVIEW OF SYSTEMS: Not obtainable from the patient. PHYSICAL EXAMINATION: Elderly gentleman, at present on a ventilator. He does respond to stimulus by moving his extremities. Pupils are reactive. Oral cavity shows intact dentition. Patient has an ET tube. CHEST EXAMINATION: Equal air flow bilaterally. CARDIAC: Irregularly irregular rhythm with heart rate varying from 80 to 140. Systolic murmur 2/6, left sternal border. ABDOMEN: Scaphoid. No palpable masses. Bowel sounds are active. Extremities reveal edema 1+ lower extremities. Good pulses upper extremities. Decreased pulses and pedal pulses. Feet are cold. Neurologically he responds to deep pain. No other activity. The patient is under sedation, though. Laboratory assessment reveals a hemoglobin of 11.3, white count 11.6, platelet count 166,000. ASSESSMENT: 1. Acute respiratory failure, etiology undetermined. 2. Atrial fibrillation with rapid ventricular rate. 3. Dementia. 4. Diarrhea. 5. Possible dehydration. PLAN: Patient is admitted to the unit. Dr. Rodrigo Owens is going to be the gas distribution plant operator. The patient will be placed on Cardizem drip. Will have Cardiology see the patient. Patient will have an echocardiogram done tomorrow. Chest x-ray will be done. Patient's prognosis is guarded. I have not been able to contact the family. Will discuss with them when they do arrive at the hospital. Patient will be followed in the absence of Dr. Medley by me.
[2017-03-04] MEDS: HYDROmorphone 1 MG/ML 1 ML SYRINGE IVP PRN (22:47)
[2017-03-04] MEDS: SODIUM CHLORIDE 0.9% 1,000 ML IV SCH (22:47)
[2017-03-04] MEDS ORDERED: POTASSIUM CHLORIDE ORAL LIQUID 40 MEQ/30 ML CUP NG-TUBE SCH (23:00)
[2017-03-04] MEDS: HEPARIN SODIUM,PORCINE 5,000 UNIT/ML 1 ML VIAL SQ SCH (23:37)
[2017-03-04] MEDS: PROPOFOL 500 MG in EMPTY BAG 1 BAG IV SCH (23:54)
[2017-03-05] MEDS: IPRATROPIUM-ALBUTEROL 3 ML NEB INHALATION SCH ×7 (00:06→22:53)
[2017-03-05] MEDS: HYDROmorphone 1 MG/ML 1 ML SYRINGE IVP PRN ×4 (00:46→23:18)
[2017-03-05 04:52] LABS: ABG PH 7.39 (7.35-7.45)
[2017-03-05 04:53] LABS: ABG Base Excess -3.4 mmol/L; ABG HCO3 21 mmol/L (21-25); ABG PCO2 35 mmHg (35-45); ABG PO2 207 mmHg (83-108); ABG TCO2 22 mmol/L (19-24)
[2017-03-05 05:00] LABS: Basophils % (A) 0 %; CH 32.9; CHCM 32.9; Eosinophils # (A) 0.1 k/uL (0-0.7); Eosinophils % (A) 1 %; HCT 31.1 % (39.0-53.0); HDW 2.46; HGB 10.1 gm/dL (13.0-17.5); Luc # (Auto) 0.17; Luc % (Auto) 2; Lymphocytes # (A) 0.8 k/uL (1.0-4.8); Lymphocytes % (A) 9 %; MCH 32.8 pg (25.0-35.0); MCHC 32.6 g/dL (31.0-37.0); MCV 100.4 fL (80.0-100.0); Mean Platelet Volume 7.5; Monocytes # (A) 0.7 k/uL (0-1.0); Monocytes % (A) 7 %; Neutrophils # (A) 7.6 k/uL (1.3-7.7); Neutrophils % (A) 82 %; RBC 3.09 m/uL (4.30-5.90); RDW 13.1 % (11.5-15.5); WBC 9.3 k/uL (3.8-10.6); WBC (Perox) 9.72
[2017-03-05 05:06] LABS: Magnesium 2.1 mg/dL (1.6-2.3)
[2017-03-05] MEDS: PROPOFOL 500 MG in EMPTY BAG 1 BAG IV SCH ×4 (05:42→23:18)
[2017-03-05 07:26] LABS: Calcium 8.1 mg/dL (8.4-10.2)
[2017-03-05 07:52] LABS: Potassium 4.4 mmol/L (3.5-5.1)
--- NOTE | 2017-03-05 08:15 | PN ---
This patient was admitted to the ICU after being transferred from the psychiatry unit. The patient had become obtunded and was intubated prior to transfer here and there was no CPR initiated. The patient was tachycardic at rates of 150 to 170 A. fib with rapid ventricular rate. The patient at present is on the ventilator. I met with the family, both the son and the spouse and then subsequent discussion with her son who is a respiratory therapist in [place]. I had long discussions with them regarding patient's status. I answered all their questions. Their concern was that patient might have been overmedicated. At present, it is difficult to say as the present scenario is that patient does require ventilatory support and is sedated so is difficult to assess further. The patient's BUN is 76, creatinine 5.21 and thus the critical labs which needs to be addressed. I have not been able to track down any previous laboratory results here. Will contact Dr. Medley's office to see if he has any previous lab results. I spent more than 30 minutes with patient's family. Total time spent on the patient was one hour.
--- NOTE | 2017-03-05 08:28 | XR ---
EXAMINATION TYPE: XR chest 1V portable DATE OF EXAM: 03/05/2017 6:32 AM Comparison: 03/04/2017 Clinical History: 87-year-old male tube placement Findings: ET tube is satisfactory. NG tube courses below the diaphragm. ACDF hardware. Suspect an expiratory exposure given low lung volumes. This accentuates heart size which is likely up per limits of normal. Mild interstitial prominence unchanged and likely chronic. Some strandy atelect asis suggested at the left base. Impression: Suspect expiratory exposure given low lung volumes. No definite acute process.
--- NOTE | 2017-03-05 08:58 | US ---
EXAMINATION TYPE: US kidneys/renal and bladder DATE OF EXAM: 03/05/2017 8:24 AM COMPARISON: NONE CLINICAL HISTORY: ARF. EXAM MEASUREMENTS: Right Kidney: 13.1 x 5.6 x 4.6 cm Left Kidney: 13.1 x 6.0 x 5.0 cm Right Kidney: enlarged, visualized portions show no evidence of hydronephrosis Left Kidney: enlarged, visualized portions show no evidence of hydronephrosis Bladder: Zavala catheter in place, bilateral small bladder diverticula noted, bladder wall somewhat th ickened but the bladder is not well-distended. Small amount of free fluid noted RLQ There is no evidence for hydronephrosis at this point in time. No nephrolithiasis is seen. No luis s are identified. The urinary bladder is anechoic. Bilateral ureteral jets are seen. Cortical medullary differentiation is maintained. 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
[2017-03-05] MEDS: CHLORHEXIDINE GLUCONATE 15 ML CUP MUCOUS MEM SCH ×2 (09:35→20:06)
[2017-03-05] MEDS: HEPARIN SODIUM,PORCINE 5,000 UNIT/ML 1 ML VIAL SQ SCH ×3 (09:35→23:17)
[2017-03-05] MEDS: PANTOPRAZOLE 40 MG/10 ML VIAL IV SCH (09:35)
[2017-03-05] MEDS: PIPERACILLIN-TAZOBACTAM 3.375 GM in DEXTROSE/WATER 1 50ML.BAG IVPB SCH ×2 (10:28→20:06)
--- NOTE | 2017-03-05 11:26 | CONS ---
DATE OF CONSULTATION: 03/05/2017 REASON FOR CONSULT: Renal failure. HISTORY OF PRESENT ILLNESS: Patient is an 87-year-old male with a history of depression and dementia, who was actually at the inpatient psych unit and he became unresponsive and "Code Blue" was called. Patient was intubated. He was initially hypotensive with systolic blood pressure in the 87 to 90 mmHg range. Patient received IV fluids and he is currently seen in the ICU. He has had good urine output. Blood pressure is stable with systolic about 114 to 110 mmHg. Serum creatinine was at 5.2 mg/dL yesterday. It is now down to 3.4. Previous creatinine had been 1.12 on 02/28/2017. There is suggestion of urinary tract infection and urine culture is currently pending. PAST MEDICAL HISTORY: A. fib, hypertension, BPH, dementia, COPD. PAST SURGICAL HISTORY: Appendectomy, back surgery, cholecystectomy. Social history is negative for smoking, drug abuse or alcohol abuse. Review of systems cannot be obtained. On examination, patient is currently sedated. He is on the vent. Blood pressure is 114/62, heart rate 93 per minute. He is afebrile. Examination of the heart S1 and S2. Examination of the lungs, bilateral breath sounds are heard. Abdomen is soft, nontender. Examination of lower extremities shows no evidence of edema. SEISMOGRAPH SHOOTER exam cannot be performed, as patient is sedated. Labs show sodium 143, potassium 4.4, chloride 113, CO2 is 19, BUN 72, serum creatinine 3.4. Hemoglobin 10.1 g/dL. UA shows more than 182 WBCs, and RBCs and protein 1+, leukocyte esterase large. ASSESSMENT: 1. Acute kidney injury, most likely acute tubular necrosis, currently nonoliguric and improving. There may be a component of obstructive uropathy as well as it appears when the indwelling Zavala catheter was placed, patient had about 1000 mL obtained. Continue with Zavala catheter. Continue with the fluids for now. 2. Depression and dementia. 3. Ventilator-dependent respiratory failure, currently on the vent. 4. Atrial fibrillation with rapid ventricular response, being followed by Cardiology, currently with controlled ventricular response. PLAN: Continue IV fluids. Repeat labs in a.m. Continue indwelling Zavala catheter, follow up on urine cultures. Continue empiric antibiotics. Thank you for this consultation. Will continue to follow the patient with you during his hospitalization.
--- NOTE | 2017-03-05 11:30 | P.CNPUL ---
History of Present Illness Consult date: 03/05/17 Requesting physician: Bautista Farr Reason for consult: other (ICU management) Chief complaint: unresponsive History of present illness: This is an 87-year-old male who is being evaluated and examined today in the intensive care unit. The patient was previously admitted to the psychiatric unit for dementia with behavioral issues. The patient apparently had agitation and was threatening to attack his with a knife, therefore was admitted to the psych unit. Per the nursing staff the patient did not look well and became unresponsive and a code was called. The patient had a pulse and was breathingCPR was initiated however the patient continued to be unresponsive therefore was subsequently intubated and brought to the ICU on mechanical ventilation. In the initial unresponsive incident the patient became incontinent of bowel and bladder and had extensive foul-smelling diarrhea. Upon examination today the patient is currently is lightly sedated with propofol on mechanical ventilation. The patient's vent settings are on assist control respiratory rate of 20, tidal volume of 550, 50% FiO2, and a PEEP of 5. Patient is currently synchronous with the ventilator. NG tube is in place and hooked to low intermittent suction. Review of Systems Routine point review of systems was completed and is negative other than what's noted in the HPI. Past Medical History Past Medical History: Dementia, Eye Disorder, GERD/Reflux, Hypertension, Memory Impairment Additional Past Medical History / Comment(s): kidney stone, cataracts History of Any Multi-Drug Resistant Organisms: None Reported Past Surgical History: Appendectomy, Back Surgery, Cholecystectomy Additional Past Surgical History / Comment(s): kidney stone removed Past Anesthesia/Blood Transfusion Reactions: No Reported Reaction Past Psychological History: No Psychological Hx Reported Additional Psychological History / Comment(s): pt is retired, lives at home with his . pt has dementia but is able to read/write and care for self at home but has memeory problems. Smoking Status: Unknown if ever smoked Past Alcohol Use History: None Reported Past Drug Use History: None Reported - Past Family History Father Family Medical History: Cancer, Dementia Additional Family Medical History / Comment(s): lung/throat cancer Medications and Allergies Home Medications Medication Instructions Recorded Confirmed Type Donepezil [Aricept] 10 mg PO W/SUPPER 04/15/15 03/04/17 History Memantine HCl [Namenda Xr] 28 mg PO DAILY 04/15/15 03/04/17 History Cholecalciferol [Vitamin D3] 1,000 unit PO DAILY 02/26/17 03/04/17 History Cyanocobalamin (Vitamin B-12) 1,000 mcg PO DAILY 02/26/17 03/04/17 History [Vitamin B-12] Folic Acid 1 mg PO DAILY 02/26/17 03/04/17 History Ranitidine HCl [Zantac] 150 mg PO DAILY 02/26/17 03/04/17 History Telmisartan [Micardis] 40 mg PO DAILY 02/26/17 03/04/17 History guaiFENesin [Mucinex] 600 mg PO Q12H PRN 02/26/17 03/04/17 History Allergies Allergy/AdvReac Type Severity Reaction Status Date / Time No Known Allergies Allergy Verified 03/03/17 00:57 Physical Exam Vitals: Vital Signs Temp Pulse Pulse Resp BP BP Pulse Ox 03/05/17 09:00 59 L 20 92/48 100 03/05/17 08:00 98.1 F 83 60 20 114/62 100 03/05/17 07:00 68 23 110/75 100 03/05/17 06:30 68 17 87/67 100 03/05/17 06:00 76 22 87/67 89 L 03/05/17 05:30 60 19 115/68 100 03/05/17 05:00 60 20 115/68 100 03/05/17 04:30 68 19 91/47 100 03/05/17 04:00 97.7 F 76 78 19 91/47 100 03/05/17 03:30 64 20 137/75 100 03/05/17 03:13 67 03/05/17 03:00 66 20 137/75 100 03/05/17 02:49 59 L 03/05/17 02:30 63 20 71/50 100 03/05/17 02:00 62 20 60/39 100 03/05/17 01:30 67 20 86/53 100 03/05/17 01:00 59 L 20 69/45 100 03/05/17 00:30 67 19 143/71 100 03/05/17 00:25 65 03/05/17 00:14 69 03/05/17 00:03 100 03/05/17 00:00 98.3 F 77 78 20 143/71 143/71 100 03/04/17 23:30 89 24 73/47 100 03/04/17 23:00 75 20 72/49 100 03/04/17 22:30 72 19 140/74 100 03/04/17 22:00 90 14 140/74 92 L 03/04/17 21:44 95 03/04/17 20:30 81 22 98/58 95 03/04/17 20:00 98.0 F 134 H 116 H 19 125/72 95 03/04/17 19:30 155 H 125/72 03/04/17 19:11 116 H 23 125/72 03/04/17 19:00 108 H 128/69 03/04/17 18:50 98.7 F 114 H 23 128/69 03/04/17 18:49 125 H 03/04/17 18:48 98.0 F 140 H 20 149/88 98 Intake and Output 03/04/17 03/05/17 03/05/17 22:59 06:59 14:59 Intake Total 4339.95 952.573 300 Output Total 2565 1235 720 Balance 1774.95 -282.427 -420 Intake: Intake, IV Titration 4339.95 952.573 300 Amount Diltiazem 125 mg In 15 63.833 Sodium Chloride 0.9% 100 ml @ 5 MG/HR 5 mls/hr IV .Q24H [facility] Rx#:[id number] Propofol 50 ml As IV .STK 24.95 38.74 -[facility] Rx#:[id number] Propofol 500 mg In Empty 50 Bag 1 bag @ Titrate IV . Q0M [facility] Rx#:[id number] Sodium Chloride 0.9% 1, 300 800 300 000 ml @ 100 mls/hr IV . Q10H [facility] Rx#:[id number] Sodium Chloride 0.9% 1, 1000 000 ml @ 999 mls/hr IV . Q1H1M [facility] Rx#:[id number] Sodium Chloride 0.9% 1, 3000 000 ml @ 999 mls/hr IV . Q1H1M ONE Rx#:[id number] Output: Urine 1565 235 720 Stool 1000 1000 Other: Voiding Method Indwelling Catheter Indwelling Catheter Indwelling Catheter Weight 80 kg 80 kg GENERAL EXAM: Lightly sedated, comfortable in no apparent distress. HEAD: Normocephalic. EYES: Normal reaction of pupils, equal size. NOSE: Clear with pink turbinates. THROAT: No erythema or exudates. NECK: No masses, no JVD. CHEST: No chest wall deformity. LUNGS: Equal air entry with no crackles, wheeze, rhonchi or dullness. Diminished bases CVS: S1 and S2 normal with no audible mumurs, regular rhythm. ABDOMEN: No hepatosplenomegaly, normal bowel sounds, no guarding or rigidity. EXTREMITIES: +1-2 bilateral lower extremity edema noted, pedal pulses palpable. SKIN: No rashes CENTRAL NERVOUS SYSTEM: Currently on sedation. Results - Laboratory Findings CBC and BMP: 03/05/17 04:15 03/05/17 04:15 ABG ABG pH 7.39 (7.35-7.45) 03/05/17 04:44 ABG pCO2 35 mmHg (35-45) 03/05/17 04:44 ABG pO2 207 mmHg (83-108) H 03/05/17 04:44 ABG O2 Saturation 100.0 % (94-97) H 03/05/17 04:44 Abnormal lab findings: Abnormal Labs 03/04/17 03/04/17 03/04/17 18:50 19:38 19:38 WBC 11.6 H RBC 3.42 L Hgb 11.3 L Hct 34.8 L MCV 101.8 H Plt Count Neutrophils # 9.6 H Lymphocytes # ABG pH 7.28 L ABG pO2 308 H ABG HCO3 20 L ABG Total CO2 14 L ABG O2 Saturation 99.0 H Chloride Carbon Dioxide 20 L BUN 76 H Creatinine 5.21 H* Glucose 174 H Plasma Lactic Acid Misael Calcium 8.2 L Phosphorus 7.3 H Total Protein 6.0 L Albumin 3.3 L Urine Protein Urine Blood Ur Leukocyte Esterase Urine RBC Urine WBC Urine Mucus 03/04/17 03/04/17 03/05/17 19:38 20:50 04:15 WBC RBC 3.09 L Hgb 10.1 L Hct 31.1 L MCV 100.4 H Plt Count 119 L Neutrophils # Lymphocytes # 0.8 L ABG pH ABG pO2 ABG HCO3 ABG Total CO2 ABG O2 Saturation Chloride Carbon Dioxide BUN Creatinine Glucose Plasma Lactic Acid Misael 3.1 H* Calcium Phosphorus Total Protein Albumin Urine Protein 1+ H Urine Blood Large H Ur Leukocyte Esterase Large H Urine RBC >182 H Urine WBC >182 H Urine Mucus Rare H 03/05/17 03/05/17 04:15 04:44 WBC RBC Hgb Hct MCV Plt Count Neutrophils # Lymphocytes # ABG pH ABG pO2 207 H ABG HCO3 ABG Total CO2 ABG O2 Saturation 100.0 H Chloride 113 H Carbon Dioxide 19 L BUN 72 H Creatinine 3.40 H Glucose 111 H Plasma Lactic Acid Misael Calcium 8.1 L Phosphorus 5.0 H Total Protein Albumin Urine Protein Urine Blood Ur Leukocyte Esterase Urine RBC Urine WBC Urine Mucus Assessment and Plan Plan: Assessment Acute hypoxic respiratory failure, etiology undetermined Sepsis/SIRS of undetermined etiology. Probable urinary tract infection Atrial fibrillation with rapid ventricular response Acute renal failure, undetermined, possible dehydration. Dementia Diarrhea Plan Occasions have been reviewed and will be continued as ordered. We will add empiric antibiotics for possible UTI. We will decrease the respiratory rate to 16 on the mechanical ventilator. Patient will be started on tube feeds for nutrition. Stool will be sent for C. diff and culture. Would cultures pending , sputum cultures, urine cultures pending. Cardiology and nephrology is also on consults. Patient did undergo an echocardiogram results are pending. Patient also had an ultrasound of the abdomen and bladder, which showed several bladder diverticula. Continue with supportive care, pulmonary hygiene. The patient should remain on the ventilator today and to possibly be weaned off in the morning. Continue to monitor labs/results and adjust treatment as necessary. I performed an examination of the patient and discussed their management with the nurse practitioner. I have reviewed the nurse practitioner's note and agree with the documented findings and plan of care.
--- NOTE | 2017-03-05 12:38 | ECHOF ---
Referral Reason:a.fib MEASUREMENTS -------- HEIGHT: 180.3 cm WEIGHT: 79.8 kg BP: 115/68 MV E Jef: 1.17 m/s MV DecT: 346 ms MV A Jef: 1.01 m/s MV E/A Ratio: 1.15 AV maxP.48 mmHg AV meanP.24 mmHg RAP: 5.00 mmHg RVSP: 12.60 mmHg FINDINGS -------- Atrial fibrillation. This was a technically difficult study with suboptimal views. Limited Study Pt. on a vent. This was a techncally difficult study with suboptimal views, , Definity utilized for enhancement of images. Overall left ventricular systolic function is normal with, an EF between 55 - 60 %. The RV was not well visualized. The left atrium was not well visualized. The right atrium was not well visualized. 1.5mg of Definity was utilized for enhancement of images The aortic valve was not well visualized. The mitral valve was not well visualized. The tricuspid valve was not well visualized. The pulmonic valve was not well visualized. CONCLUSIONS -------- 1. Atrial fibrillation. 2. 1.5mg of Definity was utilized for enhancement of images 3. The aortic valve was not well visualized. 4. The mitral valve was not well visualized. 5. The tricuspid valve was not well visualized. 6. The pulmonic valve was not well visualized. 7. This was a technically difficult study with suboptimal views. 8. Limited Study 9. Pt. on a vent. 10. This was a techncally difficult study with suboptimal views, , Definity utilized for enhancement of images. 11. Overall left ventricular systolic function is normal with, an EF between 55 - 60 %. 12. The RV was not well visualized. 13. The left atrium was not well visualized. 14. The right atrium was not well visualized. COORDINATOR [employer]TEER SERVICES: Camila Scott RDCS
--- NOTE | 2017-03-05 12:41 | P.CRDCN ---
History of Present Illness Consult date: 03/05/17 Chief complaint: Change in mental status History of present illness: This is an 87-year-old gentleman who was transferred from psychiatric unit to the intensive care unit after he became unresponsive. Currently the patient is intubated and he is on ventilator and the history was taken from the chart. The patient initially was admitted to the intensive care unit and at the intensive care unit he was quite agitated. Suddenly he became unresponsive and at that point CPR was initiated and the patient was intubated and transferred to the intensive care unit. We get involved in the care of the patient because he went into an A. fib with RVR and converted to normal sinus mechanism. I have no previous medical records indicate any cardiac history including CAD, cardiac arrhythmia, or heart failure. Currently the patient is hemodynamically stable and he is not on any vasopressors. He is sedated and currently he is on propofol. An echocardiogram was performed and still pending at this point. I reviewed the rhythm strip from the chart and it did show that the patient went into an A. fib but he is converted to normal sinus mechanism. I will start him on amiodarone bolus and drip. The blood pressure has been marginal. I will start him also on heparin IV. We will follow-up with his echocardiogram. Past Medical History Past Medical History: Dementia, Eye Disorder, GERD/Reflux, Hypertension, Memory Impairment Additional Past Medical History / Comment(s): kidney stone, cataracts History of Any Multi-Drug Resistant Organisms: None Reported Past Surgical History: Appendectomy, Back Surgery, Cholecystectomy Additional Past Surgical History / Comment(s): kidney stone removed Past Anesthesia/Blood Transfusion Reactions: No Reported Reaction Past Psychological History: No Psychological Hx Reported Additional Psychological History / Comment(s): pt is retired, lives at home with his . pt has dementia but is able to read/write and care for self at home but has memeory problems. Smoking Status: Unknown if ever smoked Past Alcohol Use History: None Reported Past Drug Use History: None Reported - Past Family History Father Family Medical History: Cancer, Dementia Additional Family Medical History / Comment(s): lung/throat cancer Medications and Allergies Home Medications Medication Instructions Recorded Confirmed Type Donepezil [Aricept] 10 mg PO W/SUPPER 04/15/15 03/04/17 History Memantine HCl [Namenda Xr] 28 mg PO DAILY 04/15/15 03/04/17 History Cholecalciferol [Vitamin D3] 1,000 unit PO DAILY 02/26/17 03/04/17 History Cyanocobalamin (Vitamin B-12) 1,000 mcg PO DAILY 02/26/17 03/04/17 History [Vitamin B-12] Folic Acid 1 mg PO DAILY 02/26/17 03/04/17 History Ranitidine HCl [Zantac] 150 mg PO DAILY 02/26/17 03/04/17 History Telmisartan [Micardis] 40 mg PO DAILY 02/26/17 03/04/17 History guaiFENesin [Mucinex] 600 mg PO Q12H PRN 02/26/17 03/04/17 History Allergies Allergy/AdvReac Type Severity Reaction Status Date / Time No Known Allergies Allergy Verified 03/03/17 00:57 Physical Exam Vitals: Vital Signs Temp Pulse Pulse Resp BP BP Pulse Ox 03/05/17 11:33 69 03/05/17 11:18 61 03/05/17 11:00 62 19 119/58 100 03/05/17 10:00 79 20 116/62 100 03/05/17 09:00 59 L 20 92/48 100 03/05/17 08:00 98.1 F 78 60 20 114/62 100 03/05/17 07:42 77 03/05/17 07:00 68 23 110/75 100 03/05/17 06:30 68 17 87/67 100 03/05/17 06:00 76 22 87/67 89 L 03/05/17 05:30 60 19 115/68 100 03/05/17 05:00 60 20 115/68 100 03/05/17 04:30 68 19 91/47 100 03/05/17 04:00 97.7 F 76 78 19 91/47 100 03/05/17 03:30 64 20 137/75 100 03/05/17 03:13 67 03/05/17 03:00 66 20 137/75 100 03/05/17 02:49 59 L 03/05/17 02:30 63 20 71/50 100 03/05/17 02:00 62 20 60/39 100 03/05/17 01:30 67 20 86/53 100 03/05/17 01:00 59 L 20 69/45 100 03/05/17 00:30 67 19 143/71 100 03/05/17 00:25 65 03/05/17 00:14 69 03/05/17 00:03 100 03/05/17 00:00 98.3 F 77 78 20 143/71 143/71 100 03/04/17 23:30 89 24 73/47 100 03/04/17 23:00 75 20 72/49 100 03/04/17 22:30 72 19 140/74 100 03/04/17 22:00 90 14 140/74 92 L 03/04/17 21:44 95 03/04/17 20:30 81 22 98/58 95 03/04/17 20:00 98.0 F 134 H 116 H 19 125/72 95 03/04/17 19:30 155 H 125/72 03/04/17 19:11 116 H 23 125/72 03/04/17 19:00 108 H 128/69 03/04/17 18:50 98.7 F 114 H 23 128/69 03/04/17 18:49 125 H 03/04/17 18:48 98.0 F 140 H 20 149/88 98 Intake and Output 03/04/17 03/05/17 03/05/17 22:59 06:59 14:59 Intake Total 4339.95 952.573 500 Output Total 2565 1235 870 Balance 1774.95 -282.427 -370 Intake: Intake, IV Titration 4339.95 952.573 500 Amount Diltiazem 125 mg In 15 63.833 Sodium Chloride 0.9% 100 ml @ 5 MG/HR 5 mls/hr IV .Q24H [facility] Rx#:[id number] Propofol 50 ml As IV .STK 24.95 38.74 [facility] Rx#:[id number] Propofol 500 mg In Empty 50 Bag 1 bag @ Titrate IV . Q0M [facility] Rx#:[id number] Sodium Chloride 0.9% 1, 300 800 500 000 ml @ 100 mls/hr IV . Q10H [facility] Rx#:[id number] Sodium Chloride 0.9% 1, 1000 000 ml @ 999 mls/hr IV . Q1H1M [facility] Rx#:[id number] Sodium Chloride 0.9% 1, 3000 000 ml @ 999 mls/hr IV . Q1H1M [facility] Rx#:[id number] Output: Urine 1565 235 870 Stool 1000 1000 Other: Voiding Method Indwelling Catheter Indwelling Catheter Indwelling Catheter Weight 80 kg 80 kg - Constitutional General appearance: no acute distress - Respiratory Respiratory: bilateral: CTA - Cardiovascular Rhythm: regular Heart sounds: normal: S1, S2 Results 03/05/17 04:15 03/05/17 04:15 Cardiac Enzymes 03/04/17 Range/Units 19:38 AST 48 (17-59) U/L CBC 03/04/17 03/05/17 Range/Units 19:38 04:15 WBC 11.6 H 9.3 (3.8-10.6) k/uL RBC 3.42 L 3.09 L (4.30-5.90) m/uL Hgb 11.3 L 10.1 L (13.0-17.5) gm/dL Hct 34.8 L 31.1 L (39.0-53.0) % Plt Count 166 119 L (150-450) k/uL Comprehensive Metabolic Panel 03/04/17 03/05/17 Range/Units 19:38 04:15 Sodium 138 143 (137-145) mmol/L Potassium 3.9 4.4 (3.5-5.1) mmol/L Chloride 105 113 H (98-107) mmol/L Carbon Dioxide 20 L 19 L (22-30) mmol/L BUN 76 H 72 H (9-20) mg/dL Creatinine 5.21 H* 3.40 H (0.66-1.25) mg/dL Glucose 174 H 111 H (74-99) mg/dL Calcium 8.2 L 8.1 L (8.4-10.2) mg/dL AST 48 (17-59) U/L ALT 42 (21-72) U/L Alkaline Phosphatase 98 (38-126) U/L Total Protein 6.0 L (6.3-8.2) g/dL Albumin 3.3 L (3.5-5.0) g/dL Current Medications Generic Name Dose Route Start Last Admin Trade Name Freq PRN Reason Stop Dose Admin Albuterol/Ipratropium 3 ml 03/05/17 00:00 03/05/17 11:15 Duoneb 0.5 Mg-3 Mg/3 Ml Soln INHALATION 3 ml RT-Q4H [facility] Administration Budesonide 1 mg 03/05/17 20:00 Pulmicort INHALATION RT-BID [facility] Chlorhexidine Gluconate 15 ml 03/05/17 09:00 03/05/17 09:35 Peridex MUCOUS MEM 15 ml BID [facility] Administration Heparin Sodium (Porcine) 5,000 unit 03/05/17 00:00 03/05/17 09:35 Heparin SQ 5,000 unit Q8HR [facility] Administration Hydromorphone HCl 1 mg 03/04/17 22:02 03/05/17 04:14 Dilaudid IVP 1 mg Q2HR PRN Administration Pain Scale 6 to 7 Propofol 500 mg/ IV Solution 50 mls @ 0 mls/hr 03/04/17 19:15 03/05/17 05:42 IV 10 mcg/kg/min .Q0M [facility] 4.8 mls/hr Protocol Administration Titrate Diltiazem HCl 125 mg/ Sodium 125 mls @ 5 mls/hr 03/04/17 20:00 03/05/17 05:00 Chloride IV 0 mg/hr .Q24H [facility] 0 mls/hr 5 MG/HR Infusion Sodium Chloride 1,000 mls @ 100 mls/hr 03/04/17 21:15 03/04/17 22:47 Saline 0.9% IV 100 mls/hr .Q10H [facility] Administration Piperacillin/Tazobactam/ 50 mls @ 12.5 mls/hr 03/05/17 10:15 03/05/17 10:28 Dextrose 3.375 gm/ IV Solution IVPB 12.5 mls/hr Q12HR [facility] Administration Miscellaneous Information 1 each 03/04/17 22:43 Potassium Per Protocol MISCELLANE DAILY PRN Per Protocol Protocol Naloxone HCl 0.2 mg 03/04/17 19:59 Narcan IV Q2M PRN Opioid Reversal Pantoprazole Sodium 40 mg 03/05/17 09:00 03/05/17 09:35 Protonix IV 40 mg DAILY [facility] Administration Intake and Output 03/04/17 03/05/17 03/05/17 22:59 06:59 14:59 Intake Total 4339.95 952.573 500 Output Total 2585 1235 870 Balance 1774.95 -282.427 -370 Intake: Intake, IV Titration 4339.95 952.573 500 Amount Diltiazem 125 mg In 15 63.833 Sodium Chloride 0.9% 100 ml @ 5 MG/HR 5 mls/hr IV .Q24H [facility] Rx#:[id number] Propofol 50 ml As IV .STK 24.95 38.74 [facility] Rx#:[id number] Propofol 500 mg In Empty 50 Bag 1 bag @ Titrate IV . Q0M [facility] Rx#:[id number] Sodium Chloride 0.9% 1, 300 800 500 000 ml @ 100 mls/hr IV . Q10H [facility] Rx#:[id number] Sodium Chloride 0.9% 1, 1000 000 ml @ 999 mls/hr IV . Q1H1M [facility] Rx#:[id number] Sodium Chloride 0.9% 1, 3000 000 ml @ 999 mls/hr IV . Q1H1M [facility] Rx#:[id number] Output: Urine 1565 235 870 Stool 1000 1000 Other: Voiding Method Indwelling Catheter Indwelling Catheter Indwelling Catheter Weight 80 kg 80 kg 03/05/17 04:15 03/05/17 04:15 Assessment and Plan Plan: Assessment #1 acute hypoxic respiratory failure #2 paroxysmal atrial fibrillation #3 acute renal failure #4 possible underlying dementia Plan #1 I will start the patient on amiodarone bolus and drip #2 I am not sure if the patient is a good candidate to have long-term oral anticoagulation #3 we will follow-up on the echocardiogram #4 follow-up with the patient
[2017-03-05] MEDS ORDERED: HEPARIN SODIUM,PORCINE 5,000 UNIT/ML 1 ML VIAL IV PRN (13:05)
[2017-03-05] MEDS ORDERED: HEPARIN SODIUM,PORCINE/D5W PMX 25,000 UNIT in DEXTROSE/WATER 1 500ML.BAG IV SCH (13:15)
[2017-03-05] MEDS: BUDESONIDE 1 MG/2 ML NEBU INHALATION SCH (19:35)
[2017-03-05] MEDS: SODIUM CHLORIDE 0.9% 1,000 ML IV SCH ×2 (20:54→21:03)
[2017-03-06] MEDS: PROPOFOL 500 MG in EMPTY BAG 1 BAG IV SCH ×2 (02:46→10:02)
[2017-03-06] MEDS: SODIUM CHLORIDE 0.9% 1,000 ML IV SCH (02:47)
[2017-03-06] MEDS: IPRATROPIUM-ALBUTEROL 3 ML NEB INHALATION SCH ×5 (03:05→19:57)
[2017-03-06] MEDS: HYDROmorphone 1 MG/ML 1 ML SYRINGE IVP PRN (05:10)
[2017-03-06 06:00] LABS: Basophils % (A) 0 %; CH 32.7; CHCM 32.3; Eosinophils # (A) 0.1 k/uL (0-0.7); Eosinophils % (A) 2 %; HCT 30.7 % (39.0-53.0); HDW 2.48; HGB 9.7 gm/dL (13.0-17.5); Luc # (Auto) 0.11; Luc % (Auto) 2; Lymphocytes # (A) 0.9 k/uL (1.0-4.8); Lymphocytes % (A) 12 %; MCH 32.1 pg (25.0-35.0); MCHC 31.5 g/dL (31.0-37.0); Macrocytosis Slight; Mean Platelet Volume 8.1; Monocytes # (A) 0.4 k/uL (0-1.0); Monocytes % (A) 6 %; Neutrophils # (A) 5.6 k/uL (1.3-7.7); Neutrophils % (A) 79 %; RBC 3.01 m/uL (4.30-5.90); RDW 13.1 % (11.5-15.5); WBC 7.2 k/uL (3.8-10.6); WBC (Perox) 7.35
[2017-03-06 06:22] LABS: INR 1.1 (<1.1); Prothrombin Time 11.2 sec (9.0-12.0)
[2017-03-06 06:29] LABS: Calcium 7.9 mg/dL (8.4-10.2); Magnesium 2.2 mg/dL (1.6-2.3); Phosphorous 2.8 mg/dL (2.5-4.5); Potassium 3.6 mmol/L (3.5-5.1)
[2017-03-06] MEDS ORDERED: Potassium Replacement Protocol 1 EACH MISC MISCELLANE PRN (06:35)
[2017-03-06] MEDS: D5-0.45% NACL WITH KCL 40MEQ/L 1,000 ML IV SCH ×2 (07:08→18:00)
[2017-03-06] MEDS: BUDESONIDE 1 MG/2 ML NEBU INHALATION SCH ×2 (07:26→19:57)
[2017-03-06 07:47] LABS: ABG PCO2 25 mmHg (35-45); ABG PH 7.51 (7.35-7.45)
[2017-03-06 07:48] LABS: ABG HCO3 20 mmol/L (21-25); ABG PO2 251 mmHg (83-108); ABG TCO2 20 mmol/L (19-24)
[2017-03-06] MEDS ORDERED: POTASSIUM CHLORIDE ORAL LIQUID 40 MEQ/30 ML CUP NG-TUBE SCH (08:00)
--- NOTE | 2017-03-06 08:07 | XR ---
EXAMINATION TYPE: XR chest 1V portable DATE OF EXAM: 03/06/2017 6:47 AM COMPARISON: March 05, 2017 HISTORY: SOB, Follow Up FINDINGS: Indwelling tubes and catheters are unchanged. No change in bibasilar opacities. Stable appearance of the cardio-mediastinal structures at this time. Pleural effusion unchanged. IMPRESSION: 1. Stable portable chest. Clinical correlation and follow up until resolution is recommended.
[2017-03-06] MEDS: HEPARIN SODIUM,PORCINE 5,000 UNIT/ML 1 ML VIAL SQ SCH ×2 (08:17→15:25)
[2017-03-06] MEDS: CHLORHEXIDINE GLUCONATE 15 ML CUP MUCOUS MEM SCH (08:18)
[2017-03-06] MEDS: PIPERACILLIN-TAZOBACTAM 3.375 GM in DEXTROSE/WATER 1 50ML.BAG IVPB SCH (08:21)
[2017-03-06] MEDS: PANTOPRAZOLE 40 MG/10 ML VIAL IV SCH (08:22)
--- NOTE | 2017-03-06 10:15 | PN ---
CHIEF COMPLAINT: Re-evaluation. HISTORY OF PRESENT ILLNESS: This 87-year-old gentleman is on a ventilator. The patient yesterday, while on the psych unit, became unresponsive with a heart rate of 170. He had a large bowel movement which was all diarrheal. The patient's vitals were stable except for the rapid heart rate. The patient, being unresponsive, was intubated by the ER physician. No chest compressions were done. The patient is on a ventilator since then. The patient does have underlying history of dementia. He was noted to have a creatinine of 5.6. Zavala catheter was placed. Nephrology consultation said patient had a urinary retention of 1000 mL of urine; 800 to 1000 mL was estimated, diarrheal fluid. The patient's creatinine is better. 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 Review of systems unobtainable from the patient. Per nursing, patient's condition has remained stable. Blood pressure not requiring any hemodynamic medications. He did have some fluids given to him. His blood pressure was 95 this morning. Patient's blood pressure is back up. The patient has had no fever. His heart rate is controlled in atrial fibrillation. Patient is on a ventilator with adequate oxygenation at 40% FiO2 and PEEP. Patient not reported to have any other diarrhea today. PHYSICAL EXAMINATION: Elderly gentleman on a ventilator, sedated. No response. VITAL SIGNS RECORDED: Temperature 98.1, pulse 83, respirations 20, blood pressure 114/62, pulse ox 100%, oxygenation on 50% FiO2. HEENT: Normocephalic. NECK: No JVD. The patient has an ET tube and a gastric tube in the oral cavity. CHEST: Bilateral air flow. CARDIAC: Distant heart sounds. S1 and S2. No gallops. Irregular rhythm. Systolic murmur 2/6, left sternal border and the apex. ABDOMEN: Soft, scaphoid. Bowel sounds present. Extremities reveal edema. Neurologically unresponsive. The patient is under sedation. LABORATORY ASSESSMENT: CBC showed white count of 9.3, hemoglobin 10.1, platelet count 119,000, pH of 7.39, pCO2 of 35, pO2 of 207 on 50% FiO2. Sodium 140, potassium 4.4, chloride 113, CO2 content 19, anion gap of 11, BUN 72, creatinine 3.4, glucose 111. ASSESSMENT: 1. Acute respiratory failure, etiology probably precipitated by atrial fibrillation with rapid ventricular rate. 2. Acute renal failure. 3. Atrial fibrillation, rapid ventricular rate, now controlled. 4. History of dementia. 5. History of recent herpes zoster. 6. Anemia. 7. Thrombocytopenia. 8. Diarrhea, etiology undetermined. PLAN: Continue present medical regimen. Await stool specimen results. Await urine culture results. Patient's general condition is guarded. Prognosis guarded. Will discuss with the spouse when available. The patient being followed by Pulmonary, Cardiology and Nephrology. Hopefully, the patient will be placed extubated by tomorrow.
--- NOTE | 2017-03-06 12:56 | P.PN ---
Progress Note - Text This is an 87-year-old gentleman who was transferred from psychiatric unit to the intensive care unit after he became unresponsive. Currently the patient is intubated and he is on ventilator and the history was taken from the chart. The patient initially was admitted to the intensive care unit and at the intensive care unit he was quite agitated. Suddenly he became unresponsive and at that point CPR was initiated and the patient was intubated and transferred to the intensive care unit. We get involved in the care of the patient because he went into an A. fib with RVR and converted to normal sinus mechanism. I'll follow-up with the patient today, he continues to be intubated. He is off vasopressors. He has been maintaining normal sinus mechanism with sinus bradycardia. I don't feel that the patient is a candidate to receive anticoagulation on long- term. He underwent an echocardiogram which showed normal LV function without any significant valvular abnormalities.
--- NOTE | 2017-03-06 15:02 | P.PN ---
Subjective This is an 87-year-old male who is being evaluated and examined today in the intensive care unit. The patient was previously admitted to the psychiatric unit for dementia with behavioral issues. The patient apparently had agitation and was threatening to attack his with a knife, therefore was admitted to the psych unit. Per the nursing staff the patient did not look well and became unresponsive and a code was called. The patient had a pulse and was breathingCPR was initiated however the patient continued to be unresponsive therefore was subsequently intubated and brought to the ICU on mechanical ventilation. In the initial unresponsive incident the patient became incontinent of bowel and bladder and had extensive foul-smelling diarrhea. Upon examination today the patient is currently is lightly sedated with propofol on mechanical ventilation. The patient's vent settings are on assist control respiratory rate of 16, tidal volume of 550, 40% FiO2, and a PEEP of 5. Patient is currently synchronous with the ventilator. He is currently being weaned down for CPAP trial and possible extubation today. NG tube in patient is receiving tube feedings and is tolerating it well. Objective - Vital Signs Vital signs: Vital Signs Temp 99 F 03/06/17 12:00 Pulse 69 03/06/17 14:00 Resp 17 03/06/17 14:00 BP 142/66 03/06/17 14:00 Pulse Ox 100 03/06/17 14:00 Intake & Output 03/05/17 03/06/17 03/06/17 18:59 06:59 18:59 Intake Total 1283.56 3982.827 0462.672 Output Total 3420 690 620 Balance -2136.44 959.352 633.672 Weight 80 kg 91.9 kg Intake: Intake, IV Titration 1243.56 1369.352 846.672 Amount D5-0.45% NaCl with KCl 700 40Meq/l 1,000 ml @ 100 mls/hr IV .Q10H [facility] Rx#: [id number] Piperacillin-Tazobactam 3 50 .375 gm In Dextrose/Water 1 50ml.bag @ 12.5 mls/hr IVPB Q12HR [facility] Rx#: [id number] Propofol 500 mg In Empty 43.56 119.352 46.672 Bag 1 bag @ Titrate IV . Q0M [facility] Rx#:[id number] Sodium Chloride 0.9% 1, 1200 1200 100 000 ml @ 100 mls/hr IV . Q10H [facility] Rx#:[id number] Tube Feeding 40 220 407 Other 60 Output: Urine 1420 690 620 Stool 2000 0 Other: Voiding Method Indwelling Catheter Indwelling Catheter Indwelling Catheter - Exam GENERAL EXAM: Lightly sedated, comfortable in no apparent distress. HEAD: Normocephalic. EYES: Normal reaction of pupils, equal size. NOSE: Clear with pink turbinates. THROAT: No erythema or exudates. NECK: No masses, no JVD. CHEST: No chest wall deformity. LUNGS: Equal air entry with no crackles, wheeze, rhonchi or dullness. Diminished bases CVS: S1 and S2 normal with no audible mumurs, regular rhythm. ABDOMEN: No hepatosplenomegaly, normal bowel sounds, no guarding or rigidity. EXTREMITIES: +1-2 bilateral lower extremity edema noted, pedal pulses palpable. SKIN: No rashes CENTRAL NERVOUS SYSTEM: Currently on sedation. - Labs CBC & Chem 7: 03/06/17 05:48 03/06/17 05:48 Labs: Abnormal Lab Results - Last 24 Hours (Table) 03/06/17 03/06/17 03/06/17 Range/Units 05:48 05:48 07:14 RBC 3.01 L (4.30-5.90) m/uL Hgb 9.7 L (13.0-17.5) gm/dL Hct 30.7 L (39.0-53.0) % MCV 102.0 H (80.0-100.0) fL Plt Count 108 L (150-450) k/uL Lymphocytes # 0.9 L (1.0-4.8) k/uL ABG pH 7.51 H (7.35-7.45) ABG pCO2 25 L (35-45) mmHg ABG pO2 251 H (83-108) mmHg ABG HCO3 20 L (21-25) mmol/L ABG O2 Saturation 100.0 H (94-97) % Sodium 146 H (137-145) mmol/L Chloride 114 H (98-107) mmol/L BUN 45 H (9-20) mg/dL Creatinine 1.50 H (0.66-1.25) mg/dL Glucose 117 H (74-99) mg/dL Calcium 7.9 L (8.4-10.2) mg/dL Microbiology - Last 24 Hours (Table) 03/05/17 19:45 Gram Stain - Preliminary Sputum Sputum Culture - Preliminary 03/04/17 19:43 Blood Culture - Preliminary Blood No Growth after 24 hours 03/04/17 19:38 Blood Culture - Preliminary Blood No Growth after 24 hours 03/04/17 22:00 Gram Stain - Preliminary Sputum Sputum Culture - Preliminary Assessment and Plan Plan: Assessment Acute hypoxic respiratory failure, etiology undetermined Sepsis/SIRS of undetermined etiology. Probable urinary tract infection Atrial fibrillation with rapid ventricular response Acute renal failure, undetermined, possible dehydration. Dementia Diarrhea Plan Medications have been reviewed and will be continued as ordered. Tinea empiric antibiotics. Continue to wean the patient off sedation and start a trial of CPAP, to see if the patient is appropriate for extubation. Patient on NG tube feedings while MECHANICALLY ventilated. Stool will be sent for C. diff and culture. Blood cultures pending, sputum cultures, urine cultures pending. Cardiology and nephrology is also on consults. Patient also had an ultrasound of the abdomen and bladder, which showed several bladder diverticula. Continue with supportive care, pulmonary hygiene. Continue to monitor labs/results and adjust treatment as necessary. I performed an examination of the patient and discussed their management with the nurse practitioner. I have reviewed the nurse practitioner's note and agree with the documented findings and plan of care.
[2017-03-06] MEDS ORDERED: PIPERACILLIN-TAZOBACTAM 3.375 GM in DEXTROSE/WATER 1 50ML.BAG IVPB SCH (16:00)
--- NOTE | 2017-03-06 17:15 | PN ---
Patient is seen for followup for acute kidney injury. He currently remains on the vent. He has good urine output. IV fluids are running at about 75 mL/hour. Serum creatinine is down to 1.5 from 3.4 mg/dL yesterday. Apparently there was no urine retention. It was 1000 mL for the stool rather than the urine at the time of initial admission to the ICU. On examination, blood pressure is 151/66, heart rate 74 per minute. Patient is sedated on the vent. Currently patient is in normal sinus rhythm. Lung sounds are heard bilaterally. Abdomen is soft, nontender. Examination of lower extremities shows no evidence of edema. Labs show sodium 146, potassium 3.6, chloride 114. BUN 45, serum creatinine 1.5. Hemoglobin 9.7 g/dL. ASSESSMENT: 1. Acute kidney injury, acute tubular necrosis, currently improved significantly. No urine retention. The initial amount of urine obtained on Zavala catheter placement was about 290 mL and not 1000 mL, which was actually the stool. Continue to avoid nephrotoxic agents. Continue with IV fluids. Agree with changing to half normal saline, given the mildly elevated serum sodium level. 2. Mild hypernatremia. IV fluids have been switched appropriately to half normal saline. 3. Ventilator-dependent respiratory failure, currently stable. 4. Atrial fibrillation with rapid ventricular response, now in normal sinus rhythm. PLAN: Continue IV fluids. Repeat labs in a.m. Continue empiric antibiotics.
[2017-03-06 17:42] LABS: ABG Base Excess -3.3 mmol/L; ABG HCO3 20 mmol/L (21-25); ABG PCO2 26 mmHg (35-45); ABG PH 7.49 (7.35-7.45); ABG PO2 183 mmHg (83-108); ABG TCO2 20 mmol/L (19-24)
[2017-03-06] MEDS ORDERED: IPRATROPIUM-ALBUTEROL 3 ML NEB INHALATION PRN (20:24)
--- NOTE | 2017-03-06 22:10 | PN ---
CRITICAL CARE NOTE: DATE OF SERVICE: 03/06/2017 Critical care time spent 35 minutes. This patient is an 87-year-old who had agonal respiration and severe degree of respiratory depression, in the Psych unit was intubated and transferred to the ICU. Patient has been supported with respirator with slow weaning and titration this morning. Patient was elected to be placed on CPAP of 5 and pressure support of 5, which he tolerated fairly well for almost one hour. Patient was able to do the weaning parameters but unable to perform maximum inspiratory and expiratory maneuver. An issue was if patient can be successfully extubated. Patient does have some respiratory secretions but; however, able to suck it out. Endotracheal tube was removed. Significant amount of respiratory secretion was sucked out as well. Patient has advanced dementia, does have some pulmonary congestion as well. Patient is now being treated and maintain on breathing treatments as well. Patient's Arterial blood gas on CPAP 5, pressure support of 5 reviewed which revealed pH of 7.49, pCO2 of 26, pO2 183. Currently patient is on breathing treatments and Pulmicort along with DVT and peptic ulcer disease prophylaxis. Patient remains on broad-spectrum antibiotics with Zosyn, which is to be continued. I will keep patient n.p.o. at this point in time due to high risk of aspiration-related problem issues. Will do a bedside swallow evaluation early in the morning. Patient given that extremely weak, we will arrange for physical therapy as well. We will continue to maintain on current antibiotics in the form of Zosyn. Patient, however, does have some gram-positive cocci growing in the sputum as well. His last chest x-ray performed earlier today reviewed and which is overall stable. Keep patient in ICU and continue supportive care as planned. Critical care time spent 35 minutes.
--- NOTE | 2017-03-06 23:33 | PN ---
CHIEF COMPLAINT: Re-evaluation. HISTORY OF PRESENT ILLNESS: This 87-year-old gentleman was admitted to the hospital after being transferred from the psychiatric unit. The patient is doing fairly well on the ventilator. He has been requiring limited oxygenation. The patient should be able to be extubated. The patient is under sedation. He has chronic atrial fibrillation. His rate is controlled. He is actually this morning in sinus rhythm. The patient has had no fever. Did have acute renal failure with decreased urine output, which has improved. The patient had no evidence of obstruction. Review of systems is unobtainable from the patient. Per Nursing, patient has fair urine output; no diarrhea reported. Patient is under sedation. PHYSICAL EXAMINATION: An 87-year-old gentleman. Vital signs reveal blood pressure 125/61, pulse rate 51, respirations 16, pulse ox 100% on room air. Patient has been afebrile. HEENT: Normocephalic. Oral cavity has an ET tube and gastric tube. No JVD. CHEST EXAMINATION: Clear to auscultation bilaterally. CARDIAC: Distant heart sounds. Irregular rhythm. ABDOMEN: Mildly protuberant. Bowel sounds are active. Extremities reveal edema. Neurologically he is sedated. He tries to move his extremities slightly when stimulated, though. LABORATORY ASSESSMENT: CBC shows a white count of 7.2, hemoglobin 9.7, platelets 108,000. Patient's blood gases shows pH 7.51, pCO2 of 25, pO2 251. Sodium 146, potassium 3.6, chloride 114, CO2 content 27. BUN 45, creatinine 1.50. ASSESSMENT: 1. Acute respiratory failure secondary to unresponsiveness probably due to significant dehydration and atrial fibrillation, rapid ventricular rate. 2. Atrial fibrillation, rapid ventricular rate, controlled. 3. Bradycardia. 4. History of dementia. 5. Acute renal failure secondary to dehydration, improving. PLAN: Continue present medical regimen. Patient's sodium is mildly elevated at 146. Will change the IV fluids to D5.5. Patient should be ready for extubation. Patient was extubated during the daytime under the supervision of the sheeter operator. Patient is maintaining adequate oxygenation on oxygen. Patient's urine culture was no growth. We should be able to take the patient off the antibiotic, as there is clearly no evidence of any infection. Though patient had diarrhea, there is no further diarrhea and stool specimen is still not available. Prognosis remains guarded. I tried to contact his but was not able to.
[2017-03-07] MEDS: HEPARIN SODIUM,PORCINE 5,000 UNIT/ML 1 ML VIAL SQ SCH ×3 (01:00→17:57)
[2017-03-07] MEDS: D5-0.45% NACL WITH KCL 40MEQ/L 1,000 ML IV SCH (04:18)
[2017-03-07 05:21] LABS: Basophils % (A) 0 %; CH 32.8; CHCM 32.7; Eosinophils # (A) 0.1 k/uL (0-0.7); Eosinophils % (A) 1 %; HCT 33.2 % (39.0-53.0); HDW 2.47; HGB 10.7 gm/dL (13.0-17.5); Luc # (Auto) 0.11; Luc % (Auto) 1; Lymphocytes # (A) 0.9 k/uL (1.0-4.8); Lymphocytes % (A) 12 %; MCH 32.5 pg (25.0-35.0); MCHC 32.2 g/dL (31.0-37.0); Mean Platelet Volume 6.9; Monocytes # (A) 0.5 k/uL (0-1.0); Monocytes % (A) 7 %; Neutrophils # (A) 6.2 k/uL (1.3-7.7); Neutrophils % (A) 79 %; RBC 3.29 m/uL (4.30-5.90); WBC 7.9 k/uL (3.8-10.6); WBC (Perox) 8.41
[2017-03-07 05:47] LABS: Anion Gap 5 mmol/L; Blood Urea Nitrogen 26 mg/dL (9-20); Calcium 8.2 mg/dL (8.4-10.2); Carbon Dioxide 25 mmol/L (22-30); Chloride 111 mmol/L (98-107); Glucose 115 mg/dL (74-99); Magnesium 1.9 mg/dL (1.6-2.3); Non-African American GFR(MDRD) >60 (>60 ml/min/1.73 sqM); Phosphorous 2.2 mg/dL (2.5-4.5); Potassium 4.1 mmol/L (3.5-5.1); Sodium 141 mmol/L (137-145)
[2017-03-07] MEDS: BUDESONIDE 1 MG/2 ML NEBU INHALATION SCH ×2 (08:25→20:15)
[2017-03-07] MEDS: IPRATROPIUM-ALBUTEROL 3 ML NEB INHALATION SCH ×5 (08:25→20:15)
[2017-03-07] MEDS ORDERED: FAMOTIDINE 20 MG TAB PO SCH (09:00)
[2017-03-07] MEDS: PANTOPRAZOLE 40 MG/10 ML VIAL IV SCH (09:29)
[2017-03-07] MEDS: MEMANTINE 10 MG TAB PO SCH (09:30)
[2017-03-07] MEDS: LOSARTAN 50 MG TAB PO SCH (09:30)
[2017-03-07 10:29] LABS: Glucose,Whole Blood 180 mg/dL (75-99)
--- NOTE | 2017-03-07 10:38 | P.PN ---
Progress Note - Text This is an 87-year-old gentleman who was transferred from psychiatric unit to the intensive care unit after he became unresponsive. Currently the patient is intubated and he is on ventilator and the history was taken from the chart. The patient initially was admitted to the intensive care unit and at the intensive care unit he was quite agitated. Suddenly he became unresponsive and at that point CPR was initiated and the patient was intubated and transferred to the intensive care unit. We get involved in the care of the patient because he went into an A. fib with RVR and converted to normal sinus mechanism. The patient was extubated yesterday. The patient is a candidate to receive anticoagulation on long-term. He underwent an echocardiogram which showed normal LV function without any significant valvular abnormalities. Also I am going to start the patient on small dose of metoprolol. We'll follow-up with the patient on when necessary case.
--- NOTE | 2017-03-07 13:37 | P.PN ---
Subjective This is an 87-year-old male who is being evaluated and examined today in the intensive care unit. The patient was previously admitted to the psychiatric unit for dementia with behavioral issues. The patient apparently had agitation and was threatening to attack his with a knife, therefore was admitted to the psych unit. Per the nursing staff the patient did not look well and became unresponsive and a code was called. The patient had a pulse and was breathingCPR was initiated however the patient continued to be unresponsive therefore was subsequently intubated and brought to the ICU on mechanical ventilation. In the initial unresponsive incident the patient became incontinent of bowel and bladder and had extensive foul-smelling diarrhea. Upon examination today the patient is currently resting up in bed on room air. He continues to show confusion/dementia. Objective - Vital Signs Vital signs: Vital Signs Temp 97.0 F L 03/07/17 11:23 Pulse 86 03/07/17 11:23 Resp 16 03/07/17 11:23 BP 179/90 03/07/17 11:23 Pulse Ox 95 03/07/17 11:23 Intake & Output 03/06/17 03/07/17 03/07/17 18:59 06:59 18:59 Intake Total 2959.560 7537.5 300 Output Total 1030 1550 475 Balance 802.172 -217.5 -175 Weight 90.2 kg Intake: Intake, IV Titration 6889.375 5991.5 300 Amount D5-0.45% NaCl with KCl 1100 1200 300 40Meq/l 1,000 ml @ 100 mls/hr IV .Q10H [facility] Rx#: [id number] Piperacillin-Tazobactam 3 37.5 12.5 .375 gm In Dextrose/Water 1 50ml.bag @ 12.5 mls/hr IVPB Q8HR [facility] Rx#: [id number] Propofol 500 mg In Empty 46.672 Bag 1 bag @ Titrate IV . Q0M [facility] Rx#:[id number] Sodium Chloride 0.9% 1, 100 000 ml @ 100 mls/hr IV . Q10H [facility] Rx#:[id number] Oral 120 Tube Feeding 518 Other 30 Output: Gastric Drainage 50 Urine 980 1550 475 Stool 0 0 Other: Voiding Method Indwelling Catheter Indwelling Catheter Indwelling Catheter # Bowel Movements 0 - Exam GENERAL EXAM: Alert, confused, comfortable in no apparent distress. HEAD: Normocephalic. EYES: Normal reaction of pupils, equal size. NOSE: Clear with pink turbinates. THROAT: No erythema or exudates. NECK: No masses, no JVD. CHEST: No chest wall deformity. LUNGS: Equal air entry with no crackles, wheeze, rhonchi or dullness. Diminished bases CVS: S1 and S2 normal with no audible mumurs, regular rhythm. ABDOMEN: No hepatosplenomegaly, normal bowel sounds, no guarding or rigidity. EXTREMITIES: +1-2 bilateral lower extremity edema noted, pedal pulses palpable. SKIN: No rashes CENTRAL NERVOUS SYSTEM: All deficits, moves all 4 extremities.. - Labs CBC & Chem 7: 03/07/17 04:20 03/07/17 04:20 Labs: Abnormal Lab Results - Last 24 Hours (Table) 03/04/17 03/06/17 03/07/17 Range/Units 19:19 15:38 04:20 RBC 3.29 L (4.30-5.90) m/uL Hgb 10.7 L (13.0-17.5) gm/dL Hct 33.2 L (39.0-53.0) % MCV 101.0 H (80.0-100.0) fL Plt Count 137 L (150-450) k/uL Lymphocytes # 0.9 L (1.0-4.8) k/uL ABG pH 7.49 H (7.35-7.45) ABG pCO2 26 L (35-45) mmHg ABG pO2 183 H (83-108) mmHg ABG HCO3 20 L (21-25) mmol/L ABG O2 Saturation 99.0 H (94-97) % Chloride (98-107) mmol/L BUN (9-20) mg/dL Glucose (74-99) mg/dL POC Glucose (mg/dL) 180 H (75-99) mg/dL Calcium (8.4-10.2) mg/dL Phosphorus (2.5-4.5) mg/dL 03/07/17 Range/Units 04:20 RBC (4.30-5.90) m/uL Hgb (13.0-17.5) gm/dL Hct (39.0-53.0) % MCV (80.0-100.0) fL Plt Count (150-450) k/uL Lymphocytes # (1.0-4.8) k/uL ABG pH (7.35-7.45) ABG pCO2 (35-45) mmHg ABG pO2 (83-108) mmHg ABG HCO3 (21-25) mmol/L ABG O2 Saturation (94-97) % Chloride 111 H (98-107) mmol/L BUN 26 H (9-20) mg/dL Glucose 115 H (74-99) mg/dL POC Glucose (mg/dL) (75-99) mg/dL Calcium 8.2 L (8.4-10.2) mg/dL Phosphorus 2.2 L (2.5-4.5) mg/dL Microbiology - Last 24 Hours (Table) 03/05/17 19:45 Gram Stain - Final Sputum Sputum Culture - Final 03/04/17 22:00 Gram Stain - Final Sputum Sputum Culture - Final 03/04/17 19:43 Blood Culture - Preliminary Blood No Growth after 48 hours 03/04/17 19:38 Blood Culture - Preliminary Blood No Growth after 48 hours 03/04/17 20:50 Urine Culture - Final Urine,Catheterized Assessment and Plan Plan: Assessment Acute hypoxic respiratory failure, etiology undetermined Sepsis/SIRS of undetermined etiology. Probable urinary tract infection Atrial fibrillation with rapid ventricular response Acute renal failure, undetermined, possible dehydration, improving Dementia Diarrhea Plan Medications have been reviewed and will be continued as ordered. Urine culture was negative blood culture was negative and sputum culture was negative. Stool will be sent for C. diff and culture. Cardiology and nephrology is also on consults. Continue with supportive care, pulmonary hygiene. Continue to monitor labs/results and adjust treatment as necessary. I performed an examination of the patient and discussed their management with the nurse practitioner. I have reviewed the nurse practitioner's note and agree with the documented findings and plan of care.
--- NOTE | 2017-03-07 16:02 | PN ---
Patient is seen for followup for acute kidney injury. He has been extubated. He is sitting up in bed. He has not been eating much. No significant respiratory complaints. On examination, blood pressure was 179/90, heart rate 86 per minute. He is afebrile. EXAMINATION OF THE HEART: S1 and S2. EXAMINATION OF THE LUNGS: Decreased breath sounds in bases. ABDOMEN: Soft, nontender. Examination of lower extremities shows no evidence of edema. WEB DESIGN INTERN exam is grossly intact. Labs show sodium of 141, potassium 4.1, BUN 26, serum creatinine 1.0. Hemoglobin 10.7 g/dL. ASSESSMENT: 1. Acute kidney injury, acute tubular necrosis, currently significantly improved. 2. Ventilator-dependent respiratory failure, status post extubation; currently doing fairly well. 3. Atrial fibrillation with rapid ventricular response, currently with controlled ventricular response. 4. History of dementia. PLAN: No changes from nephrology standpoint. Encourage increased oral intake so we can decrease his IV fluids.
[2017-03-07] MEDS: DONEPEZIL 10 MG TAB PO SCH (17:57)
[2017-03-08] MEDS: ACETAMINOPHEN TAB 325 MG TAB PO PRN ×3 (00:06→17:07)
[2017-03-08] MEDS: METOPROLOL TARTRATE 12.5 MG TAB PO SCH ×3 (00:06→21:12)
[2017-03-08] MEDS: MEMANTINE 10 MG TAB PO SCH ×3 (00:24→21:12)
[2017-03-08] MEDS: HEPARIN SODIUM,PORCINE 5,000 UNIT/ML 1 ML VIAL SQ SCH ×4 (00:29→23:24)
--- NOTE | 2017-03-08 07:57 | PN ---
CHIEF COMPLAINT: Re-evaluation. HISTORY OF PRESENT ILLNESS: This gentleman was admitted to the hospital after intubated on the psych unit. The patient's general condition has improved. The patient was extubated yesterday. It appears that the patient had acute renal failure secondary to probably dehydration. The patient had not taken much while he was in the psych unit. The patient also was noted to be in atrial fibrillation, rapid ventricular rate. He is known to have history of atrial fib. That probably precipitated the patient's unresponsiveness. The patient was intubated but no evidence of any significant respiratory pathology such as pneumonia. The patient is not on anticoagulation, he has been seen by Cardiology. His heart rate has remained stable. The patient does have a history of significant dementia. He is seen in the ICU today. He is basically alert, confused, but cooperative. REVIEW OF SYSTEMS: NEURO: Denied any headache or dizziness. PSYCH: Dementia with cooperativeness. CARDIAC: Denies chest pain. RESPIRATORY: Denies shortness of breath. GI: No nausea, vomiting. Patient's able to eat without difficulty. No GI symptoms of nausea, vomiting, diarrhea. He had a significant diarrheal stool at the time of this episode of unresponsiveness. The patient does have a Zavala catheter, which will be removed. EXTREMITIES: No pain. Does have some edema. CONSTITUTIONAL: No fever, chills reported. PHYSICAL EXAMINATION: A 87-year-old gentleman who appears in no distress at present. VITAL SIGNS: Temperature 98.9, pulse 79, respirations 18, blood pressure 162/80, pulse ox 94%. HEENT: Normocephalic. NECK: No JVD. CHEST EXAMINATION: Mild decreased air flow at the left base. CARDIAC: Distant heart sounds. S1, S2 with no gallops. Systolic murmur 2/6 left sternal border. Irregular rhythm. The patient on telemetry with sinus rhythm with PACs. Abdomen is soft, no palpable masses. Bowel sounds normal. Extremities reveal 1+ edema. Neurologically awake, alert, patient is disoriented. Moves both upper and lower extremities fairly well. LABORATORY ASSESSMENT: CBC which showed a white count of 7.9, hemoglobin 10.7, platelet count of 137. These are improving. The patient's electrolytes are normal. BUN down to 26, creatinine 1.0. Phosphorus 2.2. All cultures are essentially negative. ASSESSMENT: 1. Acute respiratory failure, resolved. 2. Atrial fibrillation, rapid ventricular rate, resolved. 3. Dementia. 4. Anemia. 5. Thrombocytopenia. 6. Acute renal failure, resolved. PLAN: Continue present medical regimen, Zavala catheter to be removed. We will monitor the patient for voiding. Patient's diet has been resumed. The patient's condition discussed with his spouse. Potential discharge him tomorrow.
[2017-03-08] MEDS: IPRATROPIUM-ALBUTEROL 3 ML NEB INHALATION SCH ×4 (08:17→20:15)
[2017-03-08] MEDS: BUDESONIDE 1 MG/2 ML NEBU INHALATION SCH ×2 (08:17→20:15)
[2017-03-08] MEDS: PANTOPRAZOLE 40 MG TABLET PO SCH (08:40)
[2017-03-08] MEDS: LOSARTAN 50 MG TAB PO SCH (08:40)
[2017-03-08 08:55] LABS: Basophils % (A) 1 %; CH 32.8; CHCM 32.8; Eosinophils # (A) 0.1 k/uL (0-0.7); Eosinophils % (A) 2 %; HCT 35.6 % (39.0-53.0); HDW 2.53; HGB 11.4 gm/dL (13.0-17.5); Luc # (Auto) 0.13; Luc % (Auto) 2; Lymphocytes # (A) 1.2 k/uL (1.0-4.8); Lymphocytes % (A) 15 %; MCH 32.1 pg (25.0-35.0); MCHC 31.9 g/dL (31.0-37.0); MCV 100.5 fL (80.0-100.0); Mean Platelet Volume 6.9; Monocytes # (A) 0.4 k/uL (0-1.0); Monocytes % (A) 5 %; Neutrophils # (A) 6.6 k/uL (1.3-7.7); Neutrophils % (A) 78 %; RBC 3.54 m/uL (4.30-5.90); RDW 12.9 % (11.5-15.5); WBC 8.5 k/uL (3.8-10.6); WBC (Perox) 9.18
[2017-03-08 09:07] LABS: Anion Gap 4 mmol/L; Blood Urea Nitrogen 25 mg/dL (9-20); Calcium 8.8 mg/dL (8.4-10.2); Carbon Dioxide 29 mmol/L (22-30); Chloride 106 mmol/L (98-107); Glucose 98 mg/dL (74-99); Non-African American GFR(MDRD) >60 (>60 ml/min/1.73 sqM); Phosphorous 3.1 mg/dL (2.5-4.5); Potassium 4.5 mmol/L (3.5-5.1); Sodium 139 mmol/L (137-145)
[2017-03-08] MEDS: TAMSULOSIN 0.4 MG CAP.ER.24H PO SCH (11:10)
--- NOTE | 2017-03-08 14:01 | P.PN ---
Subjective This is an 87-year-old male who is being evaluated and examined today in the intensive care unit. The patient was previously admitted to the psychiatric unit for dementia with behavioral issues. The patient apparently had agitation and was threatening to attack his with a knife, therefore was admitted to the psych unit. Per the nursing staff the patient did not look well and became unresponsive and a code was called. The patient had a pulse and was breathingCPR was initiated however the patient continued to be unresponsive therefore was subsequently intubated and brought to the ICU on mechanical ventilation. In the initial unresponsive incident the patient became incontinent of bowel and bladder and had extensive foul-smelling diarrhea. Upon examination today the patient is currently resting up in bed on room air. He continues to show confusion/dementia. Denies any cough or congestion. Objective - Vital Signs Vital signs: Vital Signs Temp 99.4 F 03/08/17 07:00 Pulse 76 03/08/17 11:40 Resp 22 03/08/17 07:00 BP 159/90 03/08/17 07:00 Pulse Ox 95 03/08/17 08:17 Intake & Output 03/07/17 03/08/17 03/08/17 18:59 06:59 18:59 Intake Total 300 0 Output Total 475 3800 Balance -175 -3800 0 Weight 91.5 kg Intake: Intake, IV Titration 300 Amount D5-0.45% NaCl with KCl 300 40Meq/l 1,000 ml @ 100 mls/hr IV .Q10H [facility] Rx#: [id number] Oral 0 Output: Urine 475 3800 Straight 1900 Other: Voiding Method Indwelling Catheter # Voids 1 # Bowel Movements 0 - Exam GENERAL EXAM: Alert, confused, comfortable in no apparent distress. HEAD: Normocephalic. EYES: Normal reaction of pupils, equal size. NOSE: Clear with pink turbinates. THROAT: No erythema or exudates. NECK: No masses, no JVD. CHEST: No chest wall deformity. LUNGS: Equal air entry with no crackles, wheeze, rhonchi or dullness. Diminished bases CVS: S1 and S2 normal with no audible mumurs, regular rhythm. ABDOMEN: No hepatosplenomegaly, normal bowel sounds, no guarding or rigidity. EXTREMITIES: +1-2 bilateral lower extremity edema noted, pedal pulses palpable. SKIN: No rashes CENTRAL NERVOUS SYSTEM: All deficits, moves all 4 extremities.. - Labs CBC & Chem 7: 03/08/17 08:40 03/08/17 08:40 Labs: Abnormal Lab Results - Last 24 Hours (Table) 03/08/17 03/08/17 Range/Units 08:40 08:40 RBC 3.54 L (4.30-5.90) m/uL Hgb 11.4 L (13.0-17.5) gm/dL Hct 35.6 L (39.0-53.0) % MCV 100.5 H (80.0-100.0) fL BUN 25 H (9-20) mg/dL Microbiology - Last 24 Hours (Table) 03/04/17 19:43 Blood Culture - Preliminary Blood No Growth after 72 hours 03/04/17 19:38 Blood Culture - Preliminary Blood No Growth after 72 hours 03/05/17 19:45 Gram Stain - Final Sputum Sputum Culture - Final 03/04/17 22:00 Gram Stain - Final Sputum Sputum Culture - Final Assessment and Plan Plan: Assessment Acute hypoxic respiratory failure, etiology undetermined Sepsis/SIRS of undetermined etiology. Probable urinary tract infection Atrial fibrillation with rapid ventricular response Acute renal failure, undetermined, possible dehydration, improving Dementia Diarrhea Plan Patient could be cleared for discharge from a pulmonary standpoint. Medications have been reviewed and will be continued as ordered. Urine culture was negative blood culture was negative and sputum culture was negative. Stool will be sent for C. diff and culture. Cardiology and nephrology is also on consults. Continue with supportive care, pulmonary hygiene. Condition discussed with at bedside. Continue to monitor labs/results and adjust treatment as necessary. I performed an examination of the patient and discussed their management with the nurse practitioner. I have reviewed the nurse practitioner's note and agree with the documented findings and plan of care.
--- NOTE | 2017-03-08 14:22 | DS ---
DATE OF ADMISSION: 03/04/2017 DATE OF DISCHARGE: PRINCIPAL DIAGNOSES: 1. Acute respiratory failure. 2. Atrial fibrillation with rapid ventricular rate. 3. Dementia. 4. Acute renal failure. 5. Benign prostatic hypertrophy. 6. Thrombocytopenia. 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 The patient did have unresponsiveness. The patient was intubated as he was noted to be extremely rapid atrial fibrillation and ( ) cardiorespiratory arrest. The patient did not have CPR. The patient was transferred to the ICU. No evidence of any infection. The patient did have acute renal failure with a creatinine of 5.6. Patient had a Zavala catheter replaced at that time and there was hardly any urine; however, the patient's urine output picked up. The patient did have significant diarrhea, one episode only. Following support with fluids and subsequently improving renal failure, patient back into sinus rhythm. The patient was seen by Cardiology, Nephrology and Real Estate Associate Attorney. Patient's condition having improved was extubated. The patient does have underlying dementia. He is relatively pleasant. At the time of discharge, the patient's condition regarding urinary retention is unresolved. He may require a Zavala catheter after continuous urinary retentions. Medications at the time of discharge includes: 1. Losartan 100 mg daily. 2. Namenda 10 mg b.i.d. 3. Metoprolol 12.5 mg b.i.d. 4. Protonix 40 mg daily for 1 more week. 5. Flomax 0.04 mg daily. 6. Aricept 10 mg daily. 7. Tylenol 650 p.r.n. q.6 hours. Patient's diet to be regular. Activity with the help of therapy.
--- NOTE | 2017-03-08 14:30 | PN ---
CHIEF COMPLAINT: Re-evaluation. HISTORY OF PRESENT ILLNESS: This is an 87-year-old gentleman was admitted to the hospital with atrial fibrillation, rapid ventricular rate and acute renal failure. The patient's acute renal failure was felt to be secondary to dehydration. The patient, however also was noted to have some evidence of urinary obstruction. The patient last night required a straight cath. The patient has advanced dementia. REVIEW OF SYSTEMS: Limited per nursing, no major problems except for some restlessness at times. The patient denies any headaches, dizziness. No reported fever, chills. No cough. No bowel movements. PHYSICAL EXAMINATION: Elderly gentleman, who appears chronically ill, pleasant. Vital signs reveal temperature 99.4, pulse 70, respirations 22, blood pressure 159/90. HEENT: Normocephalic. Decreased range of motion neck. Chest with mild generalized decreased air flow. CARDIAC: Distant heart sounds. S1, S2 with no gallops. Systolic murmur 2/6 left sternal border. Rhythm is regular with occasional extrasystole. ABDOMEN: Soft. Bowel sounds present. EXTREMITIES: Reveal 1+ edema. NEUROLOGIC: Pleasant, cooperative, moves both upper and lower extremities fairly well. He needed 2 person assist to be transferred to the chair. ASSESSMENT: 1. Acute renal failure, improved. 2. Paroxysmal atrial fibrillation, controlled. 3. Mild anemia. 4. Thrombocytopenia, resolved. 5. Acute urinary retention with history of benign prostatic hypertrophy. PLAN: The patient is stable. Continue present medical regimen. Placement is being worked up. Patient's condition was discussed with his spouse yesterday.
--- NOTE | 2017-03-08 14:43 | PN ---
Patient is seen for follow-up for acute kidney injury which was mainly acute tubular necrosis and currently significantly improved. Patient's creatinine is down to 1.08. He is being discharged today. According to nursing staff, patient has not been voiding and he has been straight cathed twice and each time about 1 liter and again about 2 liters was obtained on straight cath. His Zavala catheter was just removed. Patient has not been eating much. On examination, blood pressure is 159/90, heart rate 76 per minute. He is afebrile. Examination of the heart S1 and S2. Examination of the lungs: Bilateral breath sounds are heard. Abdomen is soft, nontender. Examination of lower extremities shows no significant edema. Labs reveal sodium 139, potassium 4.5. Hemoglobin 11.4 g/dL, serum creatinine 1.08. ASSESSMENT: 1. Acute kidney injury, acute tubular necrosis, currently significantly improved. 2. Urine retention with urine volume of about 1 liter and 2 liters obtained on straight cath. We will start patient on Flomax. If he continues to have urine retention, Zavala catheter will be placed and patient can follow up with Urology as outpatient. 3. Status post ventilator -dependent respiratory failure 4. Dementia with significant changes in mentation at the time of admission which patient was admitted in the psych unit. 5. Atrial fibrillation, currently with controlled ventricular response. PLAN: May need to reinsert Zavala catheter, start for Flomax and encourage increased oral intake.
[2017-03-08] MEDS: DONEPEZIL 10 MG TAB PO SCH (17:07)
[2017-03-09] MEDS: BUDESONIDE 1 MG/2 ML NEBU INHALATION SCH ×2 (08:19→20:04)
[2017-03-09] MEDS: IPRATROPIUM-ALBUTEROL 3 ML NEB INHALATION SCH ×4 (08:19→20:04)
--- NOTE | 2017-03-09 08:22 | P.PN ---
Progress Note - Text The patient is a 87-year-old gentleman who apparently was admitted back on March 04 initially to the psychiatric neal here at [facility]. There apparently he developed acute respiratory failure requiring transfer to the intensive care unit. Patient has been followed by Dr. Farr please refer to his notes. The patient had developed acute renal failure and had atrial fibrillation with a rapid ventricular response. He has had to have a Zavala catheter in place secondary to urinary retention and he does have underlying severe Alzheimer's dementia. This morning he is sitting up in bed. He is not really answering questions appropriately but does verbalize. Does not appear to be in any acute distress. Vital signs reveal temperature 98.6 with a pulse of 66 and respirations 16. Blood pressure is 160/78 and he is 96% saturated on room air. Head and neck exam unremarkable. Lung and heart exam was clear and heart rhythm is regular. Abdomen is nontender. No distal edema. He is disoriented. But no focal neurological deficits. Yesterday hemoglobin was 11.4 with a white count of 8.5 and a platelet count of 165. Blood urea nitrogen was 25 with a creatinine of 1.08 given him a GFR greater than 60. Impressions and plans: Discussed with nursing staff. Patient is anticipated to go to extended care facility. He has been cleared by consultants. There is a discharge summary dictated by Dr. Farr on the chart. Diagnoses and medications are listed. Awaiting though further acceptance from extended care facilities. He with Zavala catheter drainage for now. Likely further attempt to remove at extended care facility.
[2017-03-09] MEDS: LOSARTAN 50 MG TAB PO SCH (08:47)
[2017-03-09] MEDS: HEPARIN SODIUM,PORCINE 5,000 UNIT/ML 1 ML VIAL SQ SCH ×3 (08:47→23:25)
[2017-03-09] MEDS: TAMSULOSIN 0.4 MG CAP.ER.24H PO SCH (08:48)
[2017-03-09] MEDS: PANTOPRAZOLE 40 MG TABLET PO SCH (08:48)
[2017-03-09] MEDS: MEMANTINE 10 MG TAB PO SCH ×2 (08:48→20:28)
[2017-03-09] MEDS: METOPROLOL TARTRATE 12.5 MG TAB PO SCH ×2 (08:48→20:27)
[2017-03-09] MEDS: ACETAMINOPHEN TAB 325 MG TAB PO PRN (08:53)
[2017-03-09 09:08] LABS: Basophils % (A) 0 %; CH 33.3; CHCM 34.4; Eosinophils # (A) 0.1 k/uL (0-0.7); Eosinophils % (A) 2 %; HCT 31.7 % (39.0-53.0); HGB 10.9 gm/dL (13.0-17.5); Luc # (Auto) 0.14; Luc % (Auto) 2; Lymphocytes # (A) 1.1 k/uL (1.0-4.8); Lymphocytes % (A) 16 %; MCH 33.3 pg (25.0-35.0); MCHC 34.2 g/dL (31.0-37.0); MCV 97.2 fL (80.0-100.0); Mean Platelet Volume 6.8; Monocytes # (A) 0.4 k/uL (0-1.0); Monocytes % (A) 6 %; Neutrophils % (A) 74 %; RBC 3.27 m/uL (4.30-5.90); RDW 12.7 % (11.5-15.5); WBC 6.8 k/uL (3.8-10.6); WBC (Perox) 6.54
[2017-03-09 09:15] LABS: Anion Gap 6 mmol/L; Blood Urea Nitrogen 24 mg/dL (9-20); Calcium 8.5 mg/dL (8.4-10.2); Carbon Dioxide 30 mmol/L (22-30); Chloride 103 mmol/L (98-107); Glucose 95 mg/dL (74-99); Magnesium 1.9 mg/dL (1.6-2.3); Non-African American GFR(MDRD) >60 (>60 ml/min/1.73 sqM); Phosphorous 3.3 mg/dL (2.5-4.5); Potassium 3.9 mmol/L (3.5-5.1); Sodium 139 mmol/L (137-145)
--- NOTE | 2017-03-09 10:08 | P.PN ---
Subjective Patient is seen in follow-up for acute kidney injury. Creatinine was as high as 5 during this admission and is down to 1.05 today. Patient is resting in bed. He is not a very reliable historian. Denies any chest pain or shortness of breath. He was having persistent urinary retention and a Zavala catheter was reinserted. Hemodynamically he stable. Vital signs are stable. General: The patient appeared well nourished and normally developed. HEENT: Head exam is unremarkable. Neck is without jugular venous distension. LUNGS: Lungs are clear to auscultation and percussion. Breath sounds decreased. HEART: Rate and Rhythm are regular. First and second heart sounds normal. No murmurs, rubs or gallops. ABDOMEN: Abdominal exam reveals normal bowel sounds. Non-tender and non- distended. No evidence of peritonitis. EXTREMITITES: No clubbing, cyanosis, or edema. Objective - Vital Signs Vital signs: Vital Signs Temp 98.6 F 03/09/17 07:00 Pulse 64 03/09/17 08:55 Resp 16 03/09/17 07:00 BP 160/78 03/09/17 07:00 Pulse Ox 96 03/09/17 07:00 Intake & Output 03/08/17 03/09/17 03/09/17 18:59 06:59 18:59 Intake Total 0 Output Total 1100 2150 Balance -1100 -2150 Weight 91.5 kg 87.5 kg Intake: Oral 0 Output: Urine 1100 2150 Stool 0 Other: Voiding Method Indwelling Catheter Indwelling Catheter # Voids 0 1 # Bowel Movements 0 - Labs CBC & Chem 7: 03/09/17 08:31 03/09/17 08:31 Labs: Abnormal Lab Results - Last 24 Hours (Table) 03/09/17 03/09/17 Range/Units 08:31 08:31 RBC 3.27 L (4.30-5.90) m/uL Hgb 10.9 L (13.0-17.5) gm/dL Hct 31.7 L (39.0-53.0) % BUN 24 H (9-20) mg/dL Microbiology - Last 24 Hours (Table) 03/04/17 19:43 Blood Culture - Preliminary Blood No Growth after 96 hours 03/04/17 19:38 Blood Culture - Preliminary Blood No Growth after 96 hours Assessment and Plan Plan: Assessment: #1. Nonoliguric acute kidney injury secondary to ATN. Resolved. #2. Urinary retention. Zavala catheter has been reinserted. #3. Dementia. #4. History of atrial fibrillation. Rate controlled. #5. Benign hypertension. Controlled. Plan: Maintain Zavala catheter. He will need to follow-up with urology as an outpatient. Maintain Flomax. Encourage oral intake. Stable to be discharged from nephrology standpoint.
--- NOTE | 2017-03-09 17:27 | PN ---
The patient is sleepy, but arousable. He does not seem to be in any respiratory distress. He does not complain of any cough, has not had a fever. On physical examination, respiratory rate is 16, pulse rate 66, temperature 98.6, blood pressure 160/78, O2 sat on room air is 96%. HEENT is unremarkable. Chest is clear. Cardiovascular system reveals an S1 and S2. Abdomen is soft. There is no pedal edema. Labs reveal a white count of 6.8, hemoglobin 10.9. Sodium 139, potassium 3.9, chloride 103, bicarb 30, BUN 24, creatinine 1.05. IMPRESSION AT THIS TIME: 1. Acute hypoxic respiratory failure. 2. Sepsis with systemic inflammatory response, possibly due to urinary tract infection. 3. Atrial fibrillation. 4. Acute renal failure. 5. Dementia. Continue supportive care, current medications. Increase activity level. Agree with discharge planning.
[2017-03-09] MEDS: DONEPEZIL 10 MG TAB PO SCH (18:07)
[2017-03-10] MEDS: ACETAMINOPHEN TAB 325 MG TAB PO PRN (08:33)
[2017-03-10] MEDS: MEMANTINE 10 MG TAB PO SCH ×2 (08:34→20:59)
[2017-03-10] MEDS: TAMSULOSIN 0.4 MG CAP.ER.24H PO SCH (08:34)
[2017-03-10] MEDS: METOPROLOL TARTRATE 12.5 MG TAB PO SCH ×2 (08:34→20:59)
[2017-03-10] MEDS: HEPARIN SODIUM,PORCINE 5,000 UNIT/ML 1 ML VIAL SQ SCH ×3 (08:34→23:12)
[2017-03-10] MEDS: LOSARTAN 50 MG TAB PO SCH (08:34)
[2017-03-10] MEDS: PANTOPRAZOLE 40 MG TABLET PO SCH (08:35)
[2017-03-10] MEDS: IPRATROPIUM-ALBUTEROL 3 ML NEB INHALATION SCH ×5 (09:59→19:48)
[2017-03-10] MEDS: BUDESONIDE 1 MG/2 ML NEBU INHALATION SCH ×2 (09:59→19:48)
--- NOTE | 2017-03-10 10:16 | P.PN ---
Progress Note - Text The patient is a 87-year-old gentleman who was admitted back on March 04. Patient subsequently developed respiratory failure and required transfer to the intensive care unit. He has been followed by Dr. Farr for whom I am covering. The patient did have atrial fibrillation and acute renal failure. He has underlying Alzheimer's dementia and also has a Zavala catheter in place secondary to urinary retention. He has been cleared by pulmonary medicine and nephrology for discharge. Patient has been somewhat restless this morning. Blood pressure was elevated at 193/84 but has come down to 142/71. Temperature is 96.6. Pulse is 66 and regular and respirations are 16 and nonlabored. O2 saturation is 92 L on room air. Head and neck exam unremarkable. Lungs are clear. Heart regular. Abdomen nontender. No edema. No new neurological focal deficits. He is generally confused and not responding appropriately verbally. But easily aroused and in no acute distress. Laboratory results: From yesterday white count was 6.8 with a hemoglobin 10.9 and a platelet count of 158. Electrolytes were unremarkable. Blood urea nitrogen 24 with a creatinine of 1.05 given him a GFR greater than 60. Blood sugar was 95. Impressions and plans: Overall patient appears to be stable with the above listed problems. Plans are to transfer to extended care facility likely on Saturday. Discussed with nursing staff present in room. Nursing to call if any further needs to be addressed. Dr. Farr to resume care tomorrow on his return.
--- NOTE | 2017-03-10 12:49 | PN ---
DATE OF SERVICE: 03/10/2017 He has been hemodynamically stable. He does not seem to be in any respiratory distress. On physical examination, blood pressure 140/71, respiratory rate 16, pulse rate of 60, temperature 96.6, O2 sat on room air is 92%. HEENT is unremarkable. Chest is clear. Cardiovascular system reveals an S1, S2. Abdomen is soft. There is no edema. Labs are reviewed. IMPRESSION: 1. Acute hypoxic respiratory failure. 2. Sepsis with recent systemic inflammatory response. 3. Atrial fibrillation. 4. Acute renal failure. 5. Dementia. PLAN: Continue supportive care, current medications, increase her activity level. Prognosis is fair
[2017-03-10] MEDS: DONEPEZIL 10 MG TAB PO SCH (16:33)
--- NOTE | 2017-03-11 08:15 | P.DS ---
Providers Date of admission: 03/04/17 18:46 Attending physician: Bautista Farr Consults: 03/04/17 19:00 Consult Physician Stat Consulting Provider: Rodrigo Owens Consult Reason/Comments: icu management Do you want consulting provider notified?: Yes 03/04/17 20:00 Consult Physician Stat Consulting Provider: Bautista Farr Consult Reason/Comments: icu management Do you want consulting provider notified?: Already Contacted 03/04/17 20:18 Consult Physician Urgent Consulting Provider: Isrrael Fenton Consult Reason/Comments: a fib Do you want consulting provider notified?: Yes 03/04/17 20:19 Consult Physician Urgent Consulting Provider: Joey Lazo Consult Reason/Comments: ARF Do you want consulting provider notified?: Yes, Notify in am Primary care physician: Stated None Hospital Course: This 87-year-old gentleman was transferred from the psychiatric unit. The patient had become unresponsive. A code was called. Patient noted to be in a heart rate of 170. He was prophylactically intubated no CPR was done. Patient was subsequently transferred to the ICU. He had an extremely large diarrheal stool at the time of this episode. His urine output was low. Patient was noted to be dehydrated with his BUN in the 70s and a creatinine of 5.6. A Zavala catheter had. Low urine output. The patient subsequently hydrated and improved. He was continued on ventilatory support. He did convert into sinus rhythm with bradycardia and multiple PACs. The patient's lungs did not reveal any evidence of pneumonia urine cultures were negative for infection blood cultures were negative for any infection. The patient had no evidence of sepsis. The patient's episode of this was precipitated with a combination of acute renal failure and A. fib with rapid ventricular rate. He is noted on a previous EKG to have at 8 feet. Patient has advanced dementia and agitation and that's why he was admitted to the psych unit. He received some Zyprexa and Ativan. The patient's general conditions improved back to his baseline. He continues to show evidence of urinary retention. He did have a recent S1 and S2 area herpes zoster infection. Urinary retention felt. She to multiple causes including BPH dementia and possibly due to the recent S1 and S2 dermatome herpes zoster infection. Patient has an indwelling Zavala catheter. Would recommend removing it in another 3 days and an attempt made to see if patient can void spontaneously. This patient is under the care of Dr. eMdley. The patient condition was discussed with the to the hospitalization. He needs rehabilitation for some debility following the acute illness Final diagnosis to include 1. Acute respiratory failure with ventilatory support 2. Atrial fibrillation rapid ventricular rate and 3. Acute renal failure 4. Urinary retention 5. Dementia Alzheimer's type . History of hypertension Patient Condition at Discharge: Critical Plan - Discharge Summary Discharge Medication List Donepezil [Aricept] 10 mg PO W/SUPPER 04/15/15 [History] Memantine HCl [Namenda Xr] 28 mg PO DAILY 04/15/15 [History] Cholecalciferol [Vitamin D3] 1,000 unit PO DAILY 02/26/17 [History] Cyanocobalamin (Vitamin B-12) [Vitamin B-12] 1,000 mcg PO DAILY 02/26/17 [ History] Folic Acid 1 mg PO DAILY 02/26/17 [History] Ranitidine HCl [Zantac] 150 mg PO DAILY 02/26/17 [History] Telmisartan [Micardis] 40 mg PO DAILY 02/26/17 [History] Acetaminophen Tab [Tylenol] 325 mg PO Q4HR PRN #0 tab 03/11/17 [Rx] Metoprolol Tartrate [Lopressor] 12.5 mg PO BID tab 03/11/17 [Rx] Tamsulosin [Flomax] 0.4 mg PO PC-[id number] #0 cap.er.24h 03/11/17 [Rx] Follow up Appointment(s)/Referral(s): Rodrigo Owens MD [STAFF PHYSICIAN] - 1 Week [facility] Visiting Nurse, [NON-STAFF] - 1 Week Discharge Disposition: TRANSFER TO SNF/ECF
[2017-03-11] MEDS: IPRATROPIUM-ALBUTEROL 3 ML NEB INHALATION SCH ×4 (08:42→23:47)
[2017-03-11] MEDS: BUDESONIDE 1 MG/2 ML NEBU INHALATION SCH ×2 (08:42→23:47)
[2017-03-11] MEDS: TAMSULOSIN 0.4 MG CAP.ER.24H PO SCH (11:52)
[2017-03-11] MEDS: MEMANTINE 10 MG TAB PO SCH ×2 (11:52→20:25)
[2017-03-11] MEDS: METOPROLOL TARTRATE 12.5 MG TAB PO SCH ×2 (11:52→20:25)
[2017-03-11] MEDS: LOSARTAN 50 MG TAB PO SCH (11:52)
[2017-03-11] MEDS: PANTOPRAZOLE 40 MG TABLET PO SCH (11:52)
--- NOTE | 2017-03-11 11:52 | P.PN ---
Subjective This is an 87-year-old male who is being evaluated and examined today in the intensive care unit. The patient was previously admitted to the psychiatric unit for dementia with behavioral issues. The patient apparently had agitation and was threatening to attack his with a knife, therefore was admitted to the psych unit. Per the nursing staff the patient did not look well and became unresponsive and a code was called. The patient had a pulse and was breathingCPR was initiated however the patient continued to be unresponsive therefore was subsequently intubated and brought to the ICU on mechanical ventilation. In the initial unresponsive incident the patient became incontinent of bowel and bladder and had extensive foul-smelling diarrhea. Upon examination today the patient is currently resting up in bed on room air. He continues to show confusion/dementia. Denies any cough or congestion. patient continues to have indwelling Zavala catheter and it is recommended that he keeps it for another 3 days and then we will see if the patient can void on his own. Objective - Vital Signs Vital signs: Vital Signs Temp 96.8 F L 03/11/17 07:00 Pulse 68 03/11/17 07:00 Resp 16 03/11/17 07:00 BP 132/65 03/11/17 07:00 Pulse Ox 93 L 03/11/17 07:00 Intake & Output 03/10/17 03/11/17 03/11/17 18:59 06:59 18:59 Intake Total 100 80 Output Total 2700 400 Balance -2600 -320 Weight 84 kg 82.5 kg Intake: Oral 100 80 Output: Urine 2700 400 Uretheral (Zavala) 1300 Stool 0 Other: Voiding Method Indwelling Catheter Indwelling Catheter # Voids 1 - Exam GENERAL EXAM: Alert, confused, comfortable in no apparent distress. HEAD: Normocephalic. EYES: Normal reaction of pupils, equal size. NOSE: Clear with pink turbinates. THROAT: No erythema or exudates. NECK: No masses, no JVD. CHEST: No chest wall deformity. LUNGS: Equal air entry with no crackles, wheeze, rhonchi or dullness. Diminished bases CVS: S1 and S2 normal with no audible mumurs, regular rhythm. ABDOMEN: No hepatosplenomegaly, normal bowel sounds, no guarding or rigidity. EXTREMITIES: +1-2 bilateral lower extremity edema noted, pedal pulses palpable. SKIN: No rashes CENTRAL NERVOUS SYSTEM: All deficits, moves all 4 extremities.. - Labs CBC & Chem 7: 03/09/17 08:31 03/09/17 08:31 Labs: Microbiology - Last 24 Hours (Table) 03/04/17 19:43 Blood Culture - Final Blood No Growth after 144 hours 03/04/17 19:38 Blood Culture - Final Blood No Growth after 144 hours Assessment and Plan Plan: Assessment Acute hypoxic respiratory failure, etiology undetermined Sepsis/SIRS of undetermined etiology. Probable urinary tract infection Atrial fibrillation with rapid ventricular response Acute renal failure, undetermined, possible dehydration, improving Dementia Diarrhea, I'll Urinary retention Plan Patient could be cleared for discharge from a pulmonary standpoint, rehab facility. Medications have been reviewed and will be continued as ordered. Urine culture was negative blood culture was negative and sputum culture was negative. Cardiology and nephrology is also on consults. Continue with supportive care, pulmonary hygiene. condition should keep the indwelling Zavala catheter for another few days. Continue to monitor labs/results and adjust treatment as necessary. I performed an examination of the patient and discussed their management with the nurse practitioner. I have reviewed the nurse practitioner's note and agree with the documented findings and plan of care.
[2017-03-11] MEDS: HEPARIN SODIUM,PORCINE 5,000 UNIT/ML 1 ML VIAL SQ SCH ×3 (11:53→23:01)
[2017-03-11] MEDS: DONEPEZIL 10 MG TAB PO SCH (17:55)
[2017-03-12] MEDS ORDERED: HALOPERIDOL LACTATE 5 MG/ML 1 ML VIAL IM PRN ×2 (00:44→02:45)
[2017-03-12] MEDS: ACETAMINOPHEN TAB 325 MG TAB PO PRN ×2 (06:07→19:41)
[2017-03-12] MEDS: BUDESONIDE 1 MG/2 ML NEBU INHALATION SCH ×2 (07:43→19:49)
[2017-03-12] MEDS: IPRATROPIUM-ALBUTEROL 3 ML NEB INHALATION SCH ×4 (07:43→19:49)
--- NOTE | 2017-03-12 09:34 | P.CN ---
Psychiatric Consult - . Consult date: 03/12/17 Consult:: IDENTIFYING DATA: Mr. Mendoza is an 87-year-old male is for her to medicine service from psychiatry 03/04/2017 with acute respiratory failure, atrial fibrillation, acute renal failure and urinary retention. HISTORY OF PRESENT ILLNESS: The patient was admitted to psychiatry service on with increasing agitation and violence at home. He has a history of dementia that has become progressively worse. He showed a diurnal variation in the agitation and confusion where he becomes much more agitated and we talked about at nighttime. The admitting psychiatrist spoke with his who reported that he functions fairly well during the daytime though towards the late afternoon/evening he becomes more confused and distressed. It is during this time when he displays changes in behavior with increased agitation and aggressiveness. On psychiatric unit he became markedly obtunded with Zyprexa 7.5 mg daily in divided doses. I reviewed the medical record and attempted to interview Mr. Mendoza. He was laying in bed and did not respond to verbal prompting. His nurse was present and described increasing agitation and confusion at nighttime. He received 2 mg of haloperidol IM last night for agitation. PAST PSYCHIATRIC HISTORY: According to the record he has no history of a mental illness or past psychiatric treatment. PAST MEDICAL HISTORY: During the course of admission to medicine service his creatinine has improved from 5.21 to1.08. Similarly the BUN has decreased from 76 to 25. MENTAL STATUS EXAM: He presented as a pale and sedated and the man who is laying comfortably in his bed. He did not respond to verbal prompting but awoke when I shook her shoulder. He responds when you shout his name loud. He is unable to answer simple questions about the reason for admission. He is not oriented to time or place. IMPRESSIONS: He is an elderly man with severe progressive dementia. He is showing a diurnal variation in confusion, agitation and aggressive behavior. He continues to have episodes of agitation and confusion at night require administration of antipsychotic medications. The management of agitation and aggression in the elderly with severe depression is challenging. Most of the recommendations for treatment of agitation cause sedation. PLAN: Consider a trial of haloperidol 1 mg by mouth at bedtime but continue when necessary dosing of haloperidol 1 mg IM as needed for agitation. 03/12/17 09:10
--- NOTE | 2017-03-12 11:10 | P.PN ---
Subjective This is an 87-year-old male who is being evaluated and examined today in the intensive care unit. The patient was previously admitted to the psychiatric unit for dementia with behavioral issues. The patient apparently had agitation and was threatening to attack his with a knife, therefore was admitted to the psych unit. Per the nursing staff the patient did not look well and became unresponsive and a code was called. The patient had a pulse and was breathingCPR was initiated however the patient continued to be unresponsive therefore was subsequently intubated and brought to the ICU on mechanical ventilation. In the initial unresponsive incident the patient became incontinent of bowel and bladder and had extensive foul-smelling diarrhea. Upon examination today the patient is currently resting up in bed on room air. He continues to show confusion/dementia. Denies any cough or congestion. Patient has had Zavala catheter removed and is voiding spontaneously. at bedside and states the patient should be going to a [facility]. understands that due to the patient's condition and mentality, as well as increasing demands for his care, but she will not be able to care for him on her own. Objective - Vital Signs Vital signs: Vital Signs Temp 97.5 F L 03/11/17 23:00 Pulse 72 03/11/17 23:00 Resp 18 03/11/17 23:00 BP 141/78 03/11/17 23:00 Pulse Ox 96 03/12/17 07:43 Intake & Output 03/11/17 03/12/17 03/12/17 18:59 06:59 18:59 Intake Total 600 Output Total 400 1100 Balance 200 -1100 Weight 83 kg Intake: Oral 600 Output: Urine 400 1100 Other: Voiding Method Indwelling Catheter Indwelling Catheter # Voids 1 # Bowel Movements 1 - Exam GENERAL EXAM: Alert, confused, comfortable in no apparent distress. HEAD: Normocephalic. EYES: Normal reaction of pupils, equal size. NOSE: Clear with pink turbinates. THROAT: No erythema or exudates. NECK: No masses, no JVD. CHEST: No chest wall deformity. LUNGS: Equal air entry with no crackles, wheeze, rhonchi or dullness. Diminished bases CVS: S1 and S2 normal with no audible mumurs, regular rhythm. ABDOMEN: No hepatosplenomegaly, normal bowel sounds, no guarding or rigidity. EXTREMITIES: +1-2 bilateral lower extremity edema noted, pedal pulses palpable. SKIN: No rashes CENTRAL NERVOUS SYSTEM: All deficits, moves all 4 extremities.. - Labs CBC & Chem 7: 03/09/17 08:31 03/09/17 08:31 Assessment and Plan Plan: Assessment Acute hypoxic respiratory failure, etiology undetermined Sepsis/SIRS of undetermined etiology. Probable urinary tract infection Atrial fibrillation with rapid ventricular response Acute renal failure, undetermined, possible dehydration, improving Dementia Diarrhea, I'll Urinary retention Plan Patient could be cleared for discharge from a pulmonary standpoint. Her working with case management to help facilitate discharge. Medications have been reviewed and will be continued as ordered. Urine culture was negative blood culture was negative and sputum culture was negative. Cardiology and nephrology is also on consults. Continue with supportive care, pulmonary hygiene. We should continue to monitor patient's voiding patterns post removal of indwelling Zavala catheter to make sure there is no high residuals. Continue to monitor labs/results and adjust treatment as necessary. I performed an examination of the patient and discussed their management with the nurse practitioner. I have reviewed the nurse practitioner's note and agree with the documented findings and plan of care.
[2017-03-12] MEDS: MEMANTINE 10 MG TAB PO SCH ×2 (11:35→21:36)
[2017-03-12] MEDS: LOSARTAN 50 MG TAB PO SCH (11:35)
[2017-03-12] MEDS: HEPARIN SODIUM,PORCINE 5,000 UNIT/ML 1 ML VIAL SQ SCH ×2 (11:35→17:49)
[2017-03-12] MEDS: METOPROLOL TARTRATE 12.5 MG TAB PO SCH ×2 (11:35→21:43)
[2017-03-12] MEDS: TAMSULOSIN 0.4 MG CAP.ER.24H PO SCH (11:35)
[2017-03-12] MEDS: PANTOPRAZOLE 40 MG TABLET PO SCH (11:35)
[2017-03-12] MEDS: DONEPEZIL 10 MG TAB PO SCH (17:50)
[2017-03-12] MEDS ORDERED: BISACODYL 10 MG SUPP RECTAL STA (19:18)
[2017-03-12] MEDS ORDERED: LORazepam 0.5 MG TAB PO PRN (20:50)
[2017-03-12] MEDS ORDERED: HALOPERIDOL 1 MG TAB PO SCH (21:00)
[2017-03-12] MEDS: QUEtiapine 25 MG TAB PO ONE (21:35)
[2017-03-13] MEDS: HEPARIN SODIUM,PORCINE 5,000 UNIT/ML 1 ML VIAL SQ SCH ×2 (00:15→08:00)
[2017-03-13] MEDS: MEMANTINE 10 MG TAB PO SCH ×2 (00:15→08:01)
[2017-03-13] MEDS: IPRATROPIUM-ALBUTEROL 3 ML NEB INHALATION SCH ×2 (07:48→11:38)
[2017-03-13] MEDS: BUDESONIDE 1 MG/2 ML NEBU INHALATION SCH (07:48)
[2017-03-13] MEDS: TAMSULOSIN 0.4 MG CAP.ER.24H PO SCH (08:01)
[2017-03-13] MEDS: PANTOPRAZOLE 40 MG TABLET PO SCH (08:01)
[2017-03-13] MEDS: METOPROLOL TARTRATE 12.5 MG TAB PO SCH (08:01)
[2017-03-13] MEDS ORDERED: ARTIFICIAL TEARS-HYPROMELLOSE DROPS 15 ML BTL BOTH EYES PRN (08:20)
[2017-03-13 08:36] VITALS: BP 126/64; PULSE 81; RESP 19; TEMP 97.8
[2017-03-13] MEDS ORDERED: LOSARTAN 25 MG TAB PO SCH (09:00)
--- NOTE | 2017-03-13 09:57 | P.GSCN ---
History of Present Illness Consult date: 03/13/17 Reason for Consult: Urine retention History of present illness: The patient is an 87-year-old gentleman who is in the psychiatric unit because of behavioral issues who developed a respiratory arrest and was admitted to the [facility] on 03/04/2017. The etiology the respiratory arrest initially was uncertain. A Zavala catheter had been placed. The patient did not have a urine infection. The medical doctors and nursing staff attempted to remove the catheter is failing failed voiding trials. The latest voiding trial yesterday. The patient does have some early Alzheimer's. Upon interviewing the patient no information can be obtained. Answers aren't limited his affect is depressed. History of urologic issues a. Voiding trial yesterday went 12 hours but only 150 mL of urine returned. He is on tamsulosin. Was a history of no bowel movement. A Dulcolax suppository is ordered. His rectum is empty this morning. Review of Systems ROS unobtainable: due to mental status Past Medical History Past Medical History: Dementia, Eye Disorder, GERD/Reflux, Hypertension, Memory Impairment Additional Past Medical History / Comment(s): kidney stone, cataracts History of Any Multi-Drug Resistant Organisms: None Reported Past Surgical History: Appendectomy, Back Surgery, Cholecystectomy Additional Past Surgical History / Comment(s): kidney stone removed Past Anesthesia/Blood Transfusion Reactions: No Reported Reaction Past Psychological History: No Psychological Hx Reported Additional Psychological History / Comment(s): pt is retired, lives at home with his . pt has dementia but is able to read/write and care for self at home but has memeory problems. Smoking Status: Unknown if ever smoked Past Alcohol Use History: None Reported Past Drug Use History: None Reported - Past Family History Father Family Medical History: Cancer, Dementia Additional Family Medical History / Comment(s): lung/throat cancer Medications and Allergies Home Medications Medication Instructions Recorded Confirmed Type Donepezil [Aricept] 10 mg PO W/SUPPER 04/15/15 03/04/17 History Memantine HCl [Namenda Xr] 28 mg PO DAILY 04/15/15 03/04/17 History Cholecalciferol [Vitamin D3] 1,000 unit PO DAILY 02/26/17 03/04/17 History Cyanocobalamin (Vitamin B-12) 1,000 mcg PO DAILY 02/26/17 03/04/17 History [Vitamin B-12] Folic Acid 1 mg PO DAILY 02/26/17 03/04/17 History Ranitidine HCl [Zantac] 150 mg PO DAILY 02/26/17 03/04/17 History Telmisartan [Micardis] 40 mg PO DAILY 02/26/17 03/04/17 History Allergies Allergy/AdvReac Type Severity Reaction Status Date / Time No Known Allergies Allergy Verified 03/03/17 00:57 Surgical - Exam Vital Signs Temp Pulse Resp BP Pulse Ox 98.0 F 140 H 20 149/88 98 03/04/17 18:48 03/04/17 18:48 03/04/17 18:48 03/04/17 18:48 03/04/17 18:48 - General well developed, no distress - Eyes PERRL - ENT no hearing loss - Neck no masses - Respiratory normal expansion, normal respiratory effort - Cardiovascular Rhythm: regular - Abdomen Abdomen: soft, non tender - Genitourinary Indwelling catheter with clear urine. Penis testicles unremarkable. The prostate is 30 g broad and benign. - Integumentary no rash, no growths - Neurologic normal coordination, normal sensation, disoriented, confused, memory loss - Musculoskeletal normal gait Results - Labs 03/09/17 08:31 03/09/17 08:31 Assessment and Plan Plan: Impression possible post respiratory event urine retention. Possible memory. History of Alzheimer's. Medical problems as noted in the chart. Recommendations I'm uncertain as to whether he truly is having postop retention or just low-volume her in production. His dual yesterday was only 150 mL. If he is going to a dull foster care I have no problems with him going with the Zavala catheter and then a voiding trial as an outpatient could be performed. Can give me no further history no real ability to determine whether this is acute or chronic or how significant this is. If he goes home or to a foster home today he needs to be seen in the office in about a week for a voiding trial.
--- NOTE | 2017-03-13 11:06 | P.PN ---
Subjective This is an 87-year-old male who is being evaluated and examined today in the intensive care unit. The patient was previously admitted to the psychiatric unit for dementia with behavioral issues. The patient apparently had agitation and was threatening to attack his with a knife, therefore was admitted to the psych unit. Per the nursing staff the patient did not look well and became unresponsive and a code was called. The patient had a pulse and was breathingCPR was initiated however the patient continued to be unresponsive therefore was subsequently intubated and brought to the ICU on mechanical ventilation. In the initial unresponsive incident the patient became incontinent of bowel and bladder and had extensive foul-smelling diarrhea. Upon examination today the patient is currently resting up in bed on room air. He continues to show confusion/dementia. Denies any cough or congestion. Patient has had Zavala catheter removed yesterday and the patient continued to have urinary retention therefore urology was put on consult and the Zavala catheter was put back in. Patient will be going to a [facility]. Patient is a potential discharge today. Objective - Vital Signs Vital signs: Vital Signs Temp 97.8 F 03/13/17 08:36 Pulse 81 03/13/17 08:36 Resp 19 03/13/17 08:36 BP 126/64 03/13/17 08:36 Pulse Ox 98 03/13/17 08:36 Intake & Output 03/12/17 03/13/17 03/13/17 18:59 06:59 18:59 Intake Total 100 Output Total 250 Balance -250 100 Weight 85 kg Intake: Oral 100 Output: Urine 250 Other: Voiding Method Indwelling Catheter Indwelling Catheter # Voids 0 100 - Exam GENERAL EXAM: Alert, confused, comfortable in no apparent distress. HEAD: Normocephalic. EYES: Normal reaction of pupils, equal size. NOSE: Clear with pink turbinates. THROAT: No erythema or exudates. NECK: No masses, no JVD. CHEST: No chest wall deformity. LUNGS: Equal air entry with no crackles, wheeze, rhonchi or dullness. Diminished bases CVS: S1 and S2 normal with no audible mumurs, regular rhythm. ABDOMEN: No hepatosplenomegaly, normal bowel sounds, no guarding or rigidity. EXTREMITIES: +1-2 bilateral lower extremity edema noted, pedal pulses palpable. SKIN: No rashes CENTRAL NERVOUS SYSTEM: All deficits, moves all 4 extremities.. - Labs CBC & Chem 7: 03/09/17 08:31 03/09/17 08:31 Assessment and Plan Plan: Assessment Acute hypoxic respiratory failure, etiology undetermined Sepsis/SIRS of undetermined etiology. Probable urinary tract infection Atrial fibrillation with rapid ventricular response Acute renal failure, undetermined, possible dehydration, improving Dementia Diarrhea, I'll Urinary retention Plan Patient could be cleared for discharge from a pulmonary standpoint. Her working with case management to help facilitate discharge. Medications have been reviewed and will be continued as ordered. Urine culture was negative blood culture was negative and sputum culture was negative. Cardiology and nephrology is also on consults. Continue with supportive care, pulmonary hygiene. Patient should continue with indwelling Zavala catheter at this time due to high residual volumes. Continue to monitor labs/results and adjust treatment as necessary. I performed an examination of the patient and discussed their management with the nurse practitioner. I have reviewed the nurse practitioner's note and agree with the documented findings and plan of care.
[2017-03-13 11:49] VITALS: BMI 26.9
--- NOTE | 2017-03-13 14:01 | P.DS ---
Providers Date of admission: 03/04/17 18:46 Attending physician: Deep Medley Consults: 03/04/17 19:00 Consult Physician Stat Consulting Provider: Rodrigo Owens Consult Reason/Comments: icu management Do you want consulting provider notified?: Yes 03/04/17 20:00 Consult Physician Stat Consulting Provider: Bautista Farr Consult Reason/Comments: icu management Do you want consulting provider notified?: Already Contacted 03/04/17 20:18 Consult Physician Urgent Consulting Provider: Isrrael Fenton Consult Reason/Comments: a fib Do you want consulting provider notified?: Yes 03/04/17 20:19 Consult Physician Urgent Consulting Provider: Joey Lazo Consult Reason/Comments: ARF Do you want consulting provider notified?: Yes, Notify in am 03/11/17 14:44 Consult Physician Urgent Consulting Provider: Fernando Page Consult Reason/Comments: court date, dementia, agitated Do you want consulting provider notified?: Yes 03/12/17 08:06 Consult Physician Urgent Consulting Provider: Abdiaziz Fernando Consult Reason/Comments: ad with behaviour problem of agitation Do you want consulting provider notified?: Yes 03/12/17 17:56 Consult Physician Routine Consulting Provider: Vlad Mattson Consult Reason/Comments: urinary retention requiring rodriguez catheter. Do you want consulting provider notified?: Yes Primary care physician: Stated None Patient Condition at Discharge: Critical Plan - Discharge Summary Discharge Medication List Donepezil [Aricept] 10 mg PO W/SUPPER 04/15/15 [History] Memantine HCl [Namenda Xr] 28 mg PO DAILY 04/15/15 [History] Cholecalciferol [Vitamin D3] 1,000 unit PO DAILY 02/26/17 [History] Cyanocobalamin (Vitamin B-12) [Vitamin B-12] 1,000 mcg PO DAILY 02/26/17 [ History] Folic Acid 1 mg PO DAILY 02/26/17 [History] Ranitidine HCl [Zantac] 150 mg PO DAILY 02/26/17 [History] Telmisartan [Micardis] 40 mg PO DAILY 02/26/17 [History] Acetaminophen Tab [Tylenol] 325 mg PO Q4HR PRN #0 tab 03/11/17 [Rx] Metoprolol Tartrate [Lopressor] 12.5 mg PO BID tab 03/11/17 [Rx] Tamsulosin [Flomax] 0.4 mg PO PC-BRKFST #0 cap.er.24h 03/11/17 [Rx] Follow up Appointment(s)/Referral(s): Rodrigo Owens MD [STAFF PHYSICIAN] - 1 Week [facility] Visiting Nurse, [NON-STAFF] - 1 Week Discharge Disposition: TRANSFER TO SNF/ECF
--- NOTE | 2017-03-13 16:48 | PN ---
Cqfqju-fhajt-ftgw-old white male. . NO CODE. OTHER DATA: He is 5 feet 10 inches, 85 kg, BSA 2.03 sq meter. BMI 26.9 kg/sq meter. ALLERGY: UNKNOWN. HISTORY AND HOSPITAL COURSE: Patient, who is well known to me, was admitted to the psychiatric unit with underlying dementia with behavioral disorder. He was treated and stabilized; however, on March 04, he had acute episode of shortness of breath and tachypnea. They thought that he had an acute respiratory process. He was discharged from the psych unit and admitted to the hospital ICU. At that time Dr. Farr was special investigation unit investigator and he took take care of him subsequently in the ICU. As patient was stable, they transferred him back to the floor. Also they consulted Dr. Vallejo, Nephrology. His renal function has not changed. They consulted Dr. Rodrigo Owens, Pulmonary and Critical, and Dr. Kelelr, sprinkler fitter apprentice. With patient's stability, plan was for transfer to adult foster home for continued care, especially with Alzheimer's. The director social service was working on a custodial, but he had difficulty in being accepted in any of the nursing homes due to his behavioral disorder with the underlying current confusion and disorientation. As I did arrive from out of town today, March 13, I did see him today, evaluated him. I talked to him. I saw him after my return yesterday evening, and he was stable. As of today, patient is seen and evaluated. I reviewed the medical record, and he had a chest x-ray on March 05 on admission to the ICU, and the chest x-ray was negative. Also at that time he had an abdominal x-ray and the right kidney and left kidney were evaluated, with the enlarged right kidney, but normal; his left kidney was enlarged, but he is large patient. Several bladder diverticula were present at that time; otherwise no abnormalities detected. As of the note of Dr. Farr and Dr. Rodrigo Owens, Critical Care and Pulmonary, he stated that he had a rapid heartbeat ( ) patient was at that time seen by Dr. Farr and he put in a note for him for the admission indicating that he was at that time on the vent, as he was in respiratory distress; he became unresponsive on the psychiatric floor with heart rate of 170 beats per minute. He had a large bowel movement with diarrhea. He had stable vital signs except for increased heart rate. As patient was unresponsive, he was intubated by the ER physician, as he was CODED at that time and placed on the vent. Patient is FULL CODE. He has underlying history of dementia. His creatinine at that time recorded was 5.6. He has Zavala catheter. Nephrology consultation for urinary retention of 1000. He had between 800 and 1000. As patient stabilized in ICU, at that time the impression was acute respiratory failure; etiology precipitated by atrial fibrillation with rapid ventricular rate, acute renal failure, atrial fibrillation, rapid ventricular rate and dementia. He has a flutter on S1, S2 ( ) anemia, thrombocytopenia, diarrhea of unknown etiology ( ) of the note of Dr. Farr on dictation. Subsequently patient was seen by Dr. Rodrigo Owens on March 06, critical care and pulmonary, with the history of respiratory depression. He checked his ABG, maintained on the IV antibiotic Zosyn. Subsequently they consulted also Cardiology, Dr. Keller. He was transferred from Psychiatry to Intensive Care after he became unresponsive. He was intubated and placed on ventilator. He received CPR during this process. He was in atrial fibrillation with RVR, then converted to sinus rhythm. At the time Dr. Keller saw him he was off the vasodepressor and he was maintained in normal sinus rhythm with sinus bradycardia. Patient was seen today on the floor. He is conscious, alert, sitting on the chair, able to eat. He was planned for discharge on March 11; however, patient had difficulties being discharged because Discharge Planning was not able to find a place to take him to continue care for him. Today the patient is conscious, alert, confused intermittently, not able to do good eye contact. His vital signs indicate temperature 97.8 orally, pulse 81, respiratory rate 19. He is on 2 L of oxygen but he is not keeping it in place. Blood pressure 126/64 after I decreased his losartan to 12.5. He was yesterday 109/40. ( ) changes were prompted. LABORATORIES: Last labs were done on March 09, 2017. Hemoglobin of 10.9 with hematocrit 31.7 with mild anemia. His white count 6.8. On his blood gases, the last one was done on March 06, which was reviewed by Dr. Rodrigo Owens. His chemistry is sodium 139, potassium 3.9, chloride 103, carbon dioxide 30 and anion gap of 6; creatinine corrected 1.05 with estimated glomerular filtration rate more than 60. That was on March 09. His calcium was 8.5 with phosphorus 3.3 and magnesium 1.9. No new labs have been ordered, and we will be starting to check the labs today prior to transfer to the senior care facility versus assisted living, or maybe his will change her mind and he will go home again. Mental status appeared to be quiet, not as aggressive, at this time eating his lunch, able to communicate with a few verbal words. HEENT: Negative. Oropharynx: able to eat. No dentures. NECK: Supple. No JVD. CHEST: Clear to auscultation and percussion. HEART: PMI in the fifth intercostal space. Normal S1, S2. No gallop. No arrhythmia so far. ABDOMEN: Soft, obese. Positive bowel sounds. No tenderness in the 4 quadrants. EXTREMITIES: No edema. Positive pulses. His BMI is 26.9. No evidence of tenderness on the legs. No evidence of DVT. ASSESSMENT: 1. Acute respiratory distress; occurred on the psychiatric floor with underlying acute renal failure secondary to obstructive uropathy. Patient currently has a Zavala catheter and he will be seen by Urology. 2. Underlying dementia, Alzheimer's type. He is currently on medication. He has associated behavioral disorder and currently has been stable. 3. History of urine retention, recurrent. 4. History of bladder diverticulum. 5. Anemia. 6. His renal function returned to baseline. No further respiratory distress. PLAN: We will continue the current treatment until we have placement with the director social service and the strategic planner and his for placement with the behavioral disorder.
--- NOTE | 2017-03-13 17:27 | DS ---
ADDENDUM TO DISCHARGE SUMMARY DATE OF ADMISSION: 03/04/2017 DATE OF DISCHARGE: 03/13/2017 NO CODE STATUS. DATA: Height 5 feet 10 inches. Weight 85 kg. BSA 2.03 sq meter. BMI 26.9 kg/sq meter. ALLERGY is UNKNOWN. Patient was seen today, evaluated. [id number] examination done today as well. The dictation of the discharge summary was dictated on a progress note. Patient is currently in stable general condition. Full discharge summary was dictated by Dr. Farr on 03/11/2017 The visiting nurse as well as the train planner found a place at [facility]. Patient will be discharged today with stability and no behavioral disturbance at this time. He will be followed as well by a visiting nurse as well as in my office. Stable general condition.
[2017-03-13] MEDS ORDERED: HALOPERIDOL 2 MG TAB PO SCH (21:00)
== END 2017-03-13 14:33 | DRG 208 ==
LOC: 6ICU 18:46 → 4MS4W 03-07 11:12
PROVIDERS: ADMIT Internal Medicine; ATTEND Internal Medicine
PROC: 5A1935Z Respiratory Ventilation, Less than 24 Consecutive Hours (ICD-10-PCS; principal; 2017-03-04)
PROC: 0DH67UZ Insertion of Feeding Device into Stomach, Via Natural or Artificial Opening (ICD-10-PCS; 2017-03-04)
PROC: 0BH17EZ Insertion of Endotracheal Airway into Trachea, Via Natural or Artificial Opening (ICD-10-PCS; 2017-03-04)
PROC: 3E0G76Z Introduction of Nutritional Substance into Upper GI, Via Natural or Artificial Opening (ICD-10-PCS; 2017-03-04)
DX: J96.01 Acute respiratory failure with hypoxia (principal); N17.0 Acute kidney failure with tubular necrosis; I46.9 Cardiac arrest, cause unspecified; E87.0 Hyperosmolality and hypernatremia; I48.92 Unspecified atrial flutter; F02.81 Dementia in other diseases classified elsewhere, unspecified severity, with behavioral disturbance; N13.8 Other obstructive and reflux uropathy; J44.9 Chronic obstructive pulmonary disease, unspecified; I48.0 Paroxysmal atrial fibrillation; E86.0 Dehydration; D69.6 Thrombocytopenia, unspecified; G30.9 Alzheimer's disease, unspecified; I11.9 Hypertensive heart disease without heart failure; D64.9 Anemia, unspecified; N40.1 Benign prostatic hyperplasia with lower urinary tract symptoms; R33.8 Other retention of urine; R19.7 Diarrhea, unspecified; K21.9 Gastro-esophageal reflux disease without esophagitis; H26.9 Unspecified cataract; R32 Unspecified urinary incontinence; Z87.442 Personal history of urinary calculi; Z90.49 Acquired absence of other specified parts of digestive tract; N32.3 Diverticulum of bladder; F32.9 Major depressive disorder, single episode, unspecified; Z79.899 Other long term (current) drug therapy
CPT/HCPCS: 36600; 71010; 76770; 80048; 80053; 81001; 82805; 83605; 83735; 84100; 85025; 85610; 85730; 87040; 87070; 87086; 87205; 93306; 94002; 94003; 94640; 94760

== ENCOUNTER 2017-03-29 15:16 | Emergency (ER) | payer MEDICARE, BC ==
--- NOTE | 2017-03-29 16:48 | ED ---
Male Urogenital HPI - General Chief complaint: Urogenital Stated complaint: Male Time Seen by Provider: 03/29/17 16:38 Source: patient, family, RN notes reviewed Mode of arrival: wheelchair Limitations: altered mental status (Dementia) - History of Present Illness Initial comments: This is an 87-year-old male presents to the emergency department with family. [facility] for abnormal urine color. States that his urine is very foul- smelling, greenish and yellowish. also states that it appears to be thick. Patient was just seen by urologist one week ago and had a normal checkup. Patient has a history of urinary retention but no histories of infections. He also states that he is slightly more lethargic than usual. Patient himself has no complaints denies any pain, dysuria, diarrhea, constipation, chest pain or shortness of breath. Patient had no reported fever - Related Data Home Medications Medication Instructions Recorded Confirmed Memantine HCl [Namenda Xr] 28 mg PO DAILY 04/15/15 03/29/17 Cholecalciferol [Vitamin D3] 1,000 unit PO DAILY 02/26/17 03/29/17 Cyanocobalamin (Vitamin B-12) 1,000 mcg PO DAILY 02/26/17 03/29/17 [Vitamin B-12] Folic Acid 1 mg PO DAILY 02/26/17 03/29/17 Ranitidine HCl [Zantac] 150 mg PO DAILY 02/26/17 03/29/17 Escitalopram [Lexapro] 10 mg PO DAILY 03/29/17 03/29/17 Furosemide [Lasix] 20 mg PO DAILY 03/29/17 03/29/17 Haloperidol [Haldol] 1 mg PO HS 03/29/17 03/29/17 Haloperidol [Haldol] 1 mg PO Q3HR PRN 03/29/17 03/29/17 Magnesium Oxide [Mag-Ox] 400 mg PO DAILY 03/29/17 03/29/17 Metoprolol Tartrate [Lopressor] 12.5 mg PO BID 03/29/17 03/29/17 Zinc Oxide 20% Oint 1 applic TOPICAL QID PRN 03/29/17 03/29/17 Zinc Oxide [Desitin] 1 applic TOPICAL BID 03/29/17 03/29/17 Zolpidem [Ambien] 5 mg PO HS PRN 03/29/17 03/29/17 Previous Rx's Medication Instructions Recorded Tamsulosin [Flomax] 0.4 mg PO PC-BRKFST #30 cap.er.24h 03/13/17 Allergies Allergy/AdvReac Type Severity Reaction Status Date / Time No Known Allergies Allergy Verified 03/29/17 17:12 Review of Systems ROS Statement: Those systems with pertinent positive or pertinent negative responses have been documented in the HPI. ROS Other: All systems not noted in ROS Statement are negative. Past Medical History Past Medical History: Dementia, Eye Disorder, GERD/Reflux, Hypertension, Memory Impairment Additional Past Medical History / Comment(s): kidney stone, cataracts History of Any Multi-Drug Resistant Organisms: None Reported Past Surgical History: Appendectomy, Back Surgery, Cholecystectomy Additional Past Surgical History / Comment(s): kidney stone removed Past Anesthesia/Blood Transfusion Reactions: No Reported Reaction Past Psychological History: No Psychological Hx Reported Additional Psychological History / Comment(s): pt is retired, lives at home with his . pt has dementia but is able to read/write and care for self at home but has memeory problems. Smoking Status: Never smoker Past Alcohol Use History: None Reported Past Drug Use History: None Reported - Past Family History Father Family Medical History: Cancer, Dementia Additional Family Medical History / Comment(s): lung/throat cancer General Exam Limitations: altered mental status (Dementia) General appearance: alert, in no apparent distress Head exam: Present: atraumatic, normocephalic, normal inspection Respiratory exam: Present: normal lung sounds bilaterally. Absent: respiratory distress, wheezes, rales, rhonchi, stridor Cardiovascular Exam: Present: regular rate, normal rhythm, normal heart sounds. Absent: systolic murmur, diastolic murmur, rubs, gallop, clicks GI/Abdominal exam: Present: soft, normal bowel sounds. Absent: distended, tenderness, guarding, rebound, rigid Back exam: Absent: CVA tenderness (R), CVA tenderness (L) Skin exam: Present: warm, dry, intact, normal color. Absent: rash Course Vital Signs 03/29/17 03/29/17 15:19 16:44 Temperature 98.1 F Pulse Rate 59 L Respiratory 18 Rate Blood Pressure 130/74 132/60 O2 Sat by Pulse 98 Oximetry Medical Decision Making - Lab Data Result diagrams: 03/29/17 17:00 03/29/17 17:00 Lab Results 03/29/17 03/29/17 03/29/17 Range/Units 17:00 17:00 17:00 WBC 9.5 (3.8-10.6) k/uL RBC 3.35 L (4.30-5.90) m/uL Hgb 11.0 L (13.0-17.5) gm/dL Hct 32.4 L (39.0-53.0) % MCV 96.7 (80.0-100.0) fL MCH 32.9 (25.0-35.0) pg MCHC 34.1 (31.0-37.0) g/dL RDW 12.6 (11.5-15.5) % Plt Count 239 (150-450) k/uL Neutrophils % 79 % Lymphocytes % 14 % Monocytes % 4 % Eosinophils % 1 % Basophils % 0 % Neutrophils # 7.5 (1.3-7.7) k/uL Lymphocytes # 1.3 (1.0-4.8) k/uL Monocytes # 0.4 (0-1.0) k/uL Eosinophils # 0.1 (0-0.7) k/uL Basophils # 0.0 (0-0.2) k/uL Sodium 140 (137-145) mmol/L Potassium 4.3 (3.5-5.1) mmol/L Chloride 99 (98-107) mmol/L Carbon Dioxide 32 H (22-30) mmol/L Anion Gap 9 mmol/L BUN 30 H (9-20) mg/dL Creatinine 1.56 H (0.66-1.25) mg/dL Est GFR (MDRD) Af Amer 51 (>60 ml/min/1.73 sqM) Est GFR (MDRD) Non-Af 42 (>60 ml/min/1.73 sqM) Glucose 129 H (74-99) mg/dL Plasma Lactic Acid Misael 1.0 (0.7-2.0) mmol/L Calcium 8.9 (8.4-10.2) mg/dL Total Bilirubin 0.8 (0.2-1.3) mg/dL AST 16 L (17-59) U/L ALT 30 (21-72) U/L Alkaline Phosphatase 77 (38-126) U/L Total Protein 6.4 (6.3-8.2) g/dL Albumin 3.4 L (3.5-5.0) g/dL Urine Color Urine Appearance (Clear) Urine pH (5.0-8.0) Ur Specific [place] (1.001-1.035) Urine Protein (Negative) Urine Glucose (UA) (Negative) Urine Ketones (Negative) Urine Blood (Negative) Urine Nitrite (Negative) Urine Bilirubin (Negative) Urine Urobilinogen (<2.0) mg/dL Ur Leukocyte Esterase (Negative) Urine WBC (0-5) /hpf Urine WBC Clumps (None) /hpf Amorphous Sediment (None) /hpf Urine Bacteria (None) /hpf 03/29/17 Range/Units 17:00 WBC (3.8-10.6) k/uL RBC (4.30-5.90) m/uL Hgb (13.0-17.5) gm/dL Hct (39.0-53.0) % MCV (80.0-100.0) fL MCH (25.0-35.0) pg MCHC (31.0-37.0) g/dL RDW (11.5-15.5) % Plt Count (150-450) k/uL Neutrophils % % Lymphocytes % % Monocytes % % Eosinophils % % Basophils % % Neutrophils # (1.3-7.7) k/uL Lymphocytes # (1.0-4.8) k/uL Monocytes # (0-1.0) k/uL Eosinophils # (0-0.7) k/uL Basophils # (0-0.2) k/uL Sodium (137-145) mmol/L Potassium (3.5-5.1) mmol/L Chloride (98-107) mmol/L Carbon Dioxide (22-30) mmol/L Anion Gap mmol/L BUN (9-20) mg/dL Creatinine (0.66-1.25) mg/dL Est GFR (MDRD) Af Amer (>60 ml/min/1.73 sqM) Est GFR (MDRD) Non-Af (>60 ml/min/1.73 sqM) Glucose (74-99) mg/dL Plasma Lactic Acid Misael (0.7-2.0) mmol/L Calcium (8.4-10.2) mg/dL Total Bilirubin (0.2-1.3) mg/dL AST (17-59) U/L ALT (21-72) U/L Alkaline Phosphatase (38-126) U/L Total Protein (6.3-8.2) g/dL Albumin (3.5-5.0) g/dL Urine Color Yellow Urine Appearance Turbid (Clear) Urine pH 7.5 (5.0-8.0) Ur Specific [place] 1.016 (1.001-1.035) Urine Protein 1+ H (Negative) Urine Glucose (UA) Negative (Negative) Urine Ketones Negative (Negative) Urine Blood Small H (Negative) Urine Nitrite Positive (Negative) Urine Bilirubin Negative (Negative) Urine Urobilinogen <2.0 (<2.0) mg/dL Ur Leukocyte Esterase Large H (Negative) Urine WBC >182 H (0-5) /hpf Urine WBC Clumps Many H (None) /hpf Amorphous Sediment Occasional H (None) /hpf Urine Bacteria Many H (None) /hpf Disposition Clinical Impression: UTI (urinary tract infection), Dehydration, Acute kidney injury Disposition: ADMITTED IP TO THIS [facility] Condition: Fair Referrals: Deep Medley MD [Primary Care Provider] - 1-2 days
[2017-03-29] MEDS ORDERED: HALOPERIDOL 1 MG TAB PO STA (17:09)
[2017-03-29 17:21] LABS: Amorphous Sediment,Urine Occasional /hpf; Appearance,Urine Turbid (Clear); Bacteria,Urine Many /hpf; Bilirubin,Urine Negative (Negative); Glucose,Urine (UA) Negative (Negative); Ketones,Urine Negative (Negative); Leukocyte Esterase,Urine Large (Negative); Nitrite,Urine Positive (Negative); PH, Urine 7.5 (5.0-8.0); Particle Count 57362; Protein,Urine 1+ (Negative); Specific Gravity,Urine 1.016 (1.001-1.035); UA Billing (MACRO vs. MICRO) MICRO; Urobilinogen,Urine <2.0 mg/dL (<2.0); WBC,Urine >182 /hpf (0-5)
[2017-03-29 17:23] LABS: Basophils % (A) 0 %; CH 32.9; CHCM 34.2; Eosinophils # (A) 0.1 k/uL (0-0.7); Eosinophils % (A) 1 %; HCT 32.4 % (39.0-53.0); HDW 2.84; Luc # (Auto) 0.19; Luc % (Auto) 2; Lymphocytes # (A) 1.3 k/uL (1.0-4.8); Lymphocytes % (A) 14 %; MCH 32.9 pg (25.0-35.0); MCHC 34.1 g/dL (31.0-37.0); MCV 96.7 fL (80.0-100.0); Monocytes # (A) 0.4 k/uL (0-1.0); Monocytes % (A) 4 %; Neutrophils # (A) 7.5 k/uL (1.3-7.7); Neutrophils % (A) 79 %; RBC 3.35 m/uL (4.30-5.90); RDW 12.6 % (11.5-15.5); WBC 9.5 k/uL (3.8-10.6); WBC (Perox) 9.46
[2017-03-29 17:33] LABS: Calcium 8.9 mg/dL (8.4-10.2); Potassium 4.3 mmol/L (3.5-5.1); Total Bilirubin 0.8 mg/dL (0.2-1.3); Total Protein 6.4 g/dL (6.3-8.2)
[2017-03-29] MEDS ORDERED: SODIUM CHLORIDE 0.9% 1,000 ML IV ONE (17:49)
[2017-03-29] MEDS ORDERED: LEVOFLOXACIN 500MG-D5W PMX 500 MG in DEXTROSE/WATER 1 100ML.BAG IVPB STA (17:49)
[2017-03-29] MEDS ORDERED: ACETAMINOPHEN TAB 325 MG TAB PO PRN (17:52)
[2017-03-29] MEDS ORDERED: NALOXONE 0.4 MG/ML 1 ML VIAL IV PRN (17:52)
[2017-03-29] MEDS ORDERED: ZOLPIDEM 5 MG TAB PO PRN (17:53)
[2017-03-29] MEDS ORDERED: HALOPERIDOL 1 MG TAB PO PRN (17:53)
[2017-03-29] MEDS ORDERED: SODIUM CHLORIDE 0.9% 1,000 ML IV SCH (18:00)
--- NOTE | 2017-03-29 18:12 | ED ---
Medical Decision Making - Medical Decision Making carlos did discuss case with Dr. Farr. He is recommending discharge at this time with oral antibiotics. Patient recent back to [facility] parameters were discussed. - Lab Data Result diagrams: 03/29/17 17:00 03/29/17 17:00 Lab Results 03/29/17 03/29/17 03/29/17 Range/Units 17:00 17:00 17:00 WBC 9.5 (3.8-10.6) k/uL RBC 3.35 L (4.30-5.90) m/uL Hgb 11.0 L (13.0-17.5) gm/dL Hct 32.4 L (39.0-53.0) % MCV 96.7 (80.0-100.0) fL MCH 32.9 (25.0-35.0) pg MCHC 34.1 (31.0-37.0) g/dL RDW 12.6 (11.5-15.5) % Plt Count 239 (150-450) k/uL Neutrophils % 79 % Lymphocytes % 14 % Monocytes % 4 % Eosinophils % 1 % Basophils % 0 % Neutrophils # 7.5 (1.3-7.7) k/uL Lymphocytes # 1.3 (1.0-4.8) k/uL Monocytes # 0.4 (0-1.0) k/uL Eosinophils # 0.1 (0-0.7) k/uL Basophils # 0.0 (0-0.2) k/uL Sodium 140 (137-145) mmol/L Potassium 4.3 (3.5-5.1) mmol/L Chloride 99 (98-107) mmol/L Carbon Dioxide 32 H (22-30) mmol/L Anion Gap 9 mmol/L BUN 30 H (9-20) mg/dL Creatinine 1.56 H (0.66-1.25) mg/dL Est GFR (MDRD) Af Amer 51 (>60 ml/min/1.73 sqM) Est GFR (MDRD) Non-Af 42 (>60 ml/min/1.73 sqM) Glucose 129 H (74-99) mg/dL Plasma Lactic Acid Misael 1.0 (0.7-2.0) mmol/L Calcium 8.9 (8.4-10.2) mg/dL Total Bilirubin 0.8 (0.2-1.3) mg/dL AST 16 L (17-59) U/L ALT 30 (21-72) U/L Alkaline Phosphatase 77 (38-126) U/L Total Protein 6.4 (6.3-8.2) g/dL Albumin 3.4 L (3.5-5.0) g/dL Urine Color Urine Appearance (Clear) Urine pH (5.0-8.0) Ur Specific [place] (1.001-1.035) Urine Protein (Negative) Urine Glucose (UA) (Negative) Urine Ketones (Negative) Urine Blood (Negative) Urine Nitrite (Negative) Urine Bilirubin (Negative) Urine Urobilinogen (<2.0) mg/dL Ur Leukocyte Esterase (Negative) Urine WBC (0-5) /hpf Urine WBC Clumps (None) /hpf Amorphous Sediment (None) /hpf Urine Bacteria (None) /hpf 03/29/17 Range/Units 17:00 WBC (3.8-10.6) k/uL RBC (4.30-5.90) m/uL Hgb (13.0-17.5) gm/dL Hct (39.0-53.0) % MCV (80.0-100.0) fL MCH (25.0-35.0) pg MCHC (31.0-37.0) g/dL RDW (11.5-15.5) % Plt Count (150-450) k/uL Neutrophils % % Lymphocytes % % Monocytes % % Eosinophils % % Basophils % % Neutrophils # (1.3-7.7) k/uL Lymphocytes # (1.0-4.8) k/uL Monocytes # (0-1.0) k/uL Eosinophils # (0-0.7) k/uL Basophils # (0-0.2) k/uL Sodium (137-145) mmol/L Potassium (3.5-5.1) mmol/L Chloride (98-107) mmol/L Carbon Dioxide (22-30) mmol/L Anion Gap mmol/L BUN (9-20) mg/dL Creatinine (0.66-1.25) mg/dL Est GFR (MDRD) Af Amer (>60 ml/min/1.73 sqM) Est GFR (MDRD) Non-Af (>60 ml/min/1.73 sqM) Glucose (74-99) mg/dL Plasma Lactic Acid Misael (0.7-2.0) mmol/L Calcium (8.4-10.2) mg/dL Total Bilirubin (0.2-1.3) mg/dL AST (17-59) U/L ALT (21-72) U/L Alkaline Phosphatase (38-126) U/L Total Protein (6.3-8.2) g/dL Albumin (3.5-5.0) g/dL Urine Color Yellow Urine Appearance Turbid (Clear) Urine pH 7.5 (5.0-8.0) Ur Specific [place] 1.016 (1.001-1.035) Urine Protein 1+ H (Negative) Urine Glucose (UA) Negative (Negative) Urine Ketones Negative (Negative) Urine Blood Small H (Negative) Urine Nitrite Positive (Negative) Urine Bilirubin Negative (Negative) Urine Urobilinogen <2.0 (<2.0) mg/dL Ur Leukocyte Esterase Large H (Negative) Urine WBC >182 H (0-5) /hpf Urine WBC Clumps Many H (None) /hpf Amorphous Sediment Occasional H (None) /hpf Urine Bacteria Many H (None) /hpf Disposition Clinical Impression: UTI (urinary tract infection), Dehydration, Acute kidney injury Disposition: HOME SELF-CARE Condition: Stable Additional Instructions: Please return to the Emergency Department if symptoms worsen or any other concerns. Prescriptions: Ciprofloxacin HCl [Cipro] 500 mg PO Q12HR #20 tablet Referrals: Deep Medley MD [Primary Care Provider] - 1-2 days Time of Disposition: 18:12
[2017-03-29] MEDS ORDERED: CIPROFLOXACIN HCL 500 MG TAB PO STA (18:15)
[2017-03-29 18:36] VITALS: BP 150/71; PULSE 76; RESP 16; TEMP 98
[2017-03-29] MEDS ORDERED: METOPROLOL TARTRATE 25 MG TAB PO SCH (21:00)
[2017-03-29] MEDS ORDERED: HALOPERIDOL 1 MG TAB PO SCH (21:00)
[2017-03-30] MEDS ORDERED: TAMSULOSIN 0.4 MG CAP.ER.24H PO SCH (08:30)
[2017-03-30] MEDS ORDERED: MEMANTINE HCL 28 MG PO SCH (09:00)
[2017-03-30] MEDS ORDERED: NON-FORMULARY DRUG (Ranitidine Hcl [Zantac] 150 MG) PO SCH (09:00)
[2017-03-30] MEDS ORDERED: MAGNESIUM OXIDE 400 MG TAB PO SCH (09:00)
[2017-03-30] MEDS ORDERED: ESCITALOPRAM 10 MG TAB PO SCH (09:00)
[2017-03-30] MEDS ORDERED: FOLIC ACID 1 MG TAB PO SCH (09:00)
== END 2017-03-29 18:35 | disposition home or self-care (01) ==
LOC: EC 15:16
DX: N39.0 Urinary tract infection, site not specified (principal); E86.0 Dehydration; N17.9 Acute kidney failure, unspecified; F03.90 Unspecified dementia, unspecified severity, without behavioral disturbance, psychotic disturbance, mood disturbance, and anxiety; K21.9 Gastro-esophageal reflux disease without esophagitis; I10 Essential (primary) hypertension; Z87.442 Personal history of urinary calculi; Z79.899 Other long term (current) drug therapy; Z90.49 Acquired absence of other specified parts of digestive tract; Z98.890 Other specified postprocedural states
CPT/HCPCS: 36415; 80053; 83605; 85025; 81001; 87040; 87086; 87077; 87186; 99283; 96360; J1956

== ENCOUNTER 2017-07-18 09:16 | Emergency (ER) | payer MEDICARE, BC ==
[2017-07-18 09:28] VITALS: RESP 18
--- NOTE | 2017-07-18 10:08 | ED ---
General Adult HPI - General Chief complaint: Weakness Stated complaint: Right Sided Weakness Time Seen by Provider: 07/18/17 09:20 Source: family, EMS, RN notes reviewed Mode of arrival: EMS Limitations: altered mental status - History of Present Illness Initial comments: 87-year-old male with history of severe dementia presents for evaluation of right upper extremity weakness and clumsiness. Patient was noted by his family members to be unable to feed himself this morning. He is right-handed normally feeds himself. He did appreciate some weakness in his right upper extremity and right hand. Patient has severe dementia and is alert and oriented times name had passed. Patient is able to state his name the time my evaluation but is unable to answer any specific questions regarding the history of present illness. Unknown exact time course symptoms were noticed sometime around 7:30 or 8 AM. According to the patient's and son is at his baseline mental status at this time, and they have also noted that his strength in his right hand has improved. - Related Data Home Medications Medication Instructions Recorded Confirmed Cholecalciferol [Vitamin D3] 1,000 unit PO DAILY 02/26/17 07/18/17 Cyanocobalamin (Vitamin B-12) 1,000 mcg PO DAILY 02/26/17 07/18/17 [Vitamin B-12] Folic Acid 1 mg PO DAILY 02/26/17 07/18/17 Ranitidine HCl [Zantac] 150 mg PO DAILY 02/26/17 07/18/17 Escitalopram [Lexapro] 10 mg PO HS 03/29/17 07/18/17 Haloperidol [Haldol] 1 mg PO BID 03/29/17 07/18/17 Haloperidol [Haldol] 1 mg PO DAILY PRN 03/29/17 07/18/17 Magnesium Oxide [Mag-Ox] 400 mg PO DAILY 03/29/17 07/18/17 Metoprolol Tartrate [Lopressor] 12.5 mg PO BID 03/29/17 07/18/17 Zolpidem [Ambien] 5 mg PO HS PRN 03/29/17 07/18/17 Ammonium Lactate Lotion 1 applic TOPICAL BID 07/18/17 07/18/17 [Lac-Hydrin 12% Lotion] Cephalexin [Keflex] 500 mg PO TID 07/18/17 07/18/17 Memantine [Namenda] 10 mg PO BID 07/18/17 07/18/17 Tamsulosin [Flomax] 0.4 mg PO HS 07/18/17 07/18/17 guaiFENesin-DM 100-10MG/5ML 10 ml PO Q6HR PRN 07/18/17 07/18/17 [Robitussin DM] Allergies Allergy/AdvReac Type Severity Reaction Status Date / Time No Known Allergies Allergy Verified 07/18/17 09:45 Review of Systems ROS Statement: Those systems with pertinent positive or pertinent negative responses have been documented in the HPI. ROS Other: All systems not noted in ROS Statement are negative. Past Medical History Past Medical History: Dementia, Eye Disorder, GERD/Reflux, Hypertension, Memory Impairment Additional Past Medical History / Comment(s): kidney stone, cataracts History of Any Multi-Drug Resistant Organisms: None Reported Past Surgical History: Appendectomy, Back Surgery, Cholecystectomy Additional Past Surgical History / Comment(s): kidney stone removed Past Anesthesia/Blood Transfusion Reactions: No Reported Reaction Past Psychological History: No Psychological Hx Reported Smoking Status: Never smoker Past Alcohol Use History: None Reported Past Drug Use History: None Reported - Past Family History Father Family Medical History: Cancer, Dementia Additional Family Medical History / Comment(s): lung/throat cancer General Exam Limitations: altered mental status General appearance: alert, in no apparent distress Head exam: Present: atraumatic, normocephalic Eye exam: Present: normal appearance, PERRL ENT exam: Present: mucous membranes moist Neck exam: Present: normal inspection. Absent: tenderness, meningismus Respiratory exam: Present: normal lung sounds bilaterally. Absent: respiratory distress Cardiovascular Exam: Present: regular rate, normal rhythm GI/Abdominal exam: Present: soft. Absent: distended, tenderness Extremities exam: Present: normal inspection, normal capillary refill. 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 Medical Decision Making - Medical Decision Making 87-year-old male with history of severe dementia presents with chief complaint right upper extremity weakness. There is no appreciable increased weakness on the right upper extremity on my examination. 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 Patient's family is not interested in aggressive treatment of the patient's symptoms given his advanced dementia. CT was obtained which was negative for acute intracranial abnormality , chest x-ray shows no acute process, mild right-sided atelectasis. Laboratory studies including CBC, CMP, urinalysis are unremarkable. On reevaluation, patient's neurologic examination is unchanged. Case is discussed with patient' s primary care physician Dr. Medley, he is agreeable with discharge at this time. Patient's symptoms may have been related to TIA, however no further testing or evaluation is needed at this time secondary to the patient's severe dementia. Patient's family and primary care physician are agreeable with this. Diagnosis: TIA - Lab Data Result diagrams: 07/18/17 09:25 07/18/17 09:25 Lab Results 07/18/17 07/18/17 07/18/17 Range/Units 09:25 09:25 09:25 WBC 6.4 (3.8-10.6) k/uL RBC 3.27 L (4.30-5.90) m/uL Hgb 10.2 L (13.0-17.5) gm/dL Hct 31.3 L (39.0-53.0) % MCV 95.7 (80.0-100.0) fL MCH 31.4 (25.0-35.0) pg MCHC 32.8 (31.0-37.0) g/dL RDW 13.7 (11.5-15.5) % Plt Count 253 (150-450) k/uL Neutrophils % 61 % Lymphocytes % 24 % Monocytes % 5 % Eosinophils % 8 % Basophils % 0 % Neutrophils # 3.9 (1.3-7.7) k/uL Lymphocytes # 1.5 (1.0-4.8) k/uL Monocytes # 0.3 (0-1.0) k/uL Eosinophils # 0.5 (0-0.7) k/uL Basophils # 0.0 (0-0.2) k/uL PT (9.0-12.0) sec INR (<1.2) APTT (22.0-30.0) sec Sodium 141 (137-145) mmol/L Potassium 4.0 (3.5-5.1) mmol/L Chloride 100 (98-107) mmol/L Carbon Dioxide 33 H (22-30) mmol/L Anion Gap 8 mmol/L BUN 24 H (9-20) mg/dL Creatinine 1.09 (0.66-1.25) mg/dL Est GFR (MDRD) Af Amer >60 (>60 ml/min/1.73 sqM) Est GFR (MDRD) Non-Af >60 (>60 ml/min/1.73 sqM) Glucose 107 H (74-99) mg/dL Plasma Lactic Acid Misael (0.7-2.0) mmol/L Calcium 8.8 (8.4-10.2) mg/dL Magnesium 2.0 (1.6-2.3) mg/dL Total Bilirubin 0.5 (0.2-1.3) mg/dL AST 15 L (17-59) U/L ALT 26 (21-72) U/L Alkaline Phosphatase 69 (38-126) U/L Total Creatine Kinase 58 (55-170) U/L CK-MB (CK-2) 1.2 (0.0-2.4) ng/mL CK-MB (CK-2) Rel Index 2.1 Troponin I <0.012 (0.000-0.034) ng/mL Total Protein 5.9 L (6.3-8.2) g/dL Albumin 3.3 L (3.5-5.0) g/dL TSH 1.550 (0.465-4.680) mIU/L Urine Color Urine Appearance (Clear) Urine pH (5.0-8.0) Ur Specific Hurricane (1.001-1.035) Urine Protein (Negative) Urine Glucose (UA) (Negative) Urine Ketones (Negative) Urine Blood (Negative) Urine Nitrite (Negative) Urine Bilirubin (Negative) Urine Urobilinogen (<2.0) mg/dL Ur Leukocyte Esterase (Negative) 07/18/17 07/18/17 07/18/17 Range/Units 09:25 11:38 11:38 WBC (3.8-10.6) k/uL RBC (4.30-5.90) m/uL Hgb (13.0-17.5) gm/dL Hct (39.0-53.0) % MCV (80.0-100.0) fL MCH (25.0-35.0) pg MCHC (31.0-37.0) g/dL RDW (11.5-15.5) % Plt Count (150-450) k/uL Neutrophils % % Lymphocytes % % Monocytes % % Eosinophils % % Basophils % % Neutrophils # (1.3-7.7) k/uL Lymphocytes # (1.0-4.8) k/uL Monocytes # (0-1.0) k/uL Eosinophils # (0-0.7) k/uL Basophils # (0-0.2) k/uL PT 11.4 (9.0-12.0) sec INR 1.1 (<1.2) APTT 26.5 (22.0-30.0) sec Sodium (137-145) mmol/L Potassium (3.5-5.1) mmol/L Chloride (98-107) mmol/L Carbon Dioxide (22-30) mmol/L Anion Gap mmol/L BUN (9-20) mg/dL Creatinine (0.66-1.25) mg/dL Est GFR (MDRD) Af Amer (>60 ml/min/1.73 sqM) Est GFR (MDRD) Non-Af (>60 ml/min/1.73 sqM) Glucose (74-99) mg/dL Plasma Lactic Acid Misael 0.7 (0.7-2.0) mmol/L Calcium (8.4-10.2) mg/dL Magnesium (1.6-2.3) mg/dL Total Bilirubin (0.2-1.3) mg/dL AST (17-59) U/L ALT (21-72) U/L Alkaline Phosphatase (38-126) U/L Total Creatine Kinase (55-170) U/L CK-MB (CK-2) (0.0-2.4) ng/mL CK-MB (CK-2) Rel Index Troponin I (0.000-0.034) ng/mL Total Protein (6.3-8.2) g/dL Albumin (3.5-5.0) g/dL TSH (0.465-4.680) mIU/L Urine Color Yellow Urine Appearance Clear (Clear) Urine pH 5.5 (5.0-8.0) Ur Specific Hurricane 1.021 (1.001-1.035) Urine Protein Negative (Negative) Urine Glucose (UA) Negative (Negative) Urine Ketones Negative (Negative) Urine Blood Negative (Negative) Urine Nitrite Negative (Negative) Urine Bilirubin Negative (Negative) Urine Urobilinogen 3.0 (<2.0) mg/dL Ur Leukocyte Esterase Negative (Negative) Disposition Clinical Impression: Dementia, TIA (transient ischemic attack) Disposition: HOME SELF-CARE Condition: Good Instructions: Dementia (ED), Transient Ischemic Attack (ED) Additional Instructions: Patient will return to [facility]. Please return to emergency department with worsening or changing symptoms Referrals: Deep Medley MD [Primary Care Provider] - 1-2 days
[2017-07-18 10:13] LABS: Basophils % (A) 0 %; CH 32.6; CHCM 34.3; Eosinophils # (A) 0.5 k/uL (0-0.7); Eosinophils % (A) 8 %; HCT 31.3 % (39.0-53.0); HDW 2.82; HGB 10.2 gm/dL (13.0-17.5); Luc # (Auto) 0.12; Luc % (Auto) 2; Lymphocytes # (A) 1.5 k/uL (1.0-4.8); Lymphocytes % (A) 24 %; MCH 31.4 pg (25.0-35.0); MCHC 32.8 g/dL (31.0-37.0); MCV 95.7 fL (80.0-100.0); Mean Platelet Volume 7.2; Monocytes # (A) 0.3 k/uL (0-1.0); Monocytes % (A) 5 %; Neutrophils # (A) 3.9 k/uL (1.3-7.7); Neutrophils % (A) 61 %; RBC 3.27 m/uL (4.30-5.90); RDW 13.7 % (11.5-15.5); WBC 6.4 k/uL (3.8-10.6); WBC (Perox) 6.87
[2017-07-18 10:26] LABS: ALT 26 U/L (21-72); AST 15 U/L (17-59); Alkaline Phosphatase 69 U/L (38-126); Anion Gap 8 mmol/L; Blood Urea Nitrogen 24 mg/dL (9-20); Calcium 8.8 mg/dL (8.4-10.2); Carbon Dioxide 33 mmol/L (22-30); Chloride 100 mmol/L (98-107); Glucose 107 mg/dL (74-99); Non-African American GFR(MDRD) >60 (>60 ml/min/1.73 sqM); Sodium 141 mmol/L (137-145); Total Bilirubin 0.5 mg/dL (0.2-1.3); Total Protein 5.9 g/dL (6.3-8.2)
[2017-07-18 10:34] LABS: Creatine Kinase 58 U/L (55-170)
--- NOTE | 2017-07-18 10:34 | CT ---
EXAMINATION TYPE: CT brain wo con DATE OF EXAM: 07/18/2017 COMPARISON: 02/26/17 HISTORY: Patient poor historian. Patient displays weakness. CT DLP: 926.[address] of the brain was performed. The ventricles, basal cisterns and sulci overlying the cerebral convexities demonstrate moderate enla rgement. There is no evidence for intracranial hemorrhage or sulcal effacement. There is decreased attenuation about the periventricular white matter and deep white matter of both c erebral hemispheres, compatible with chronic small vessel ischemia. Differential diagnosis does inclu de demyelination. No mass effects are seen.No midline shift. Osseous calvarium is intact. Chronic maxillary sinusitis. If symptoms persist consider MRI. IMPRESSION: 1. Age related atrophic and chronic small vessel ischemic change without acute intracranial process s een at this time.
[2017-07-18 10:38] LABS: INR 1.1 (<1.2); Partial Thromboplastin Time 26.5 sec (22.0-30.0); Prothrombin Time 11.4 sec (9.0-12.0)
[2017-07-18 10:46] LABS: Creatine Kinase MB 1.2 ng/mL (0.0-2.4); Troponin I <0.012 ng/mL (0.000-0.034)
--- NOTE | 2017-07-18 10:46 | XR ---
EXAMINATION TYPE: XR chest 2V DATE OF EXAM: 07/18/2017 COMPARISON: 03/06/2017 HISTORY: Shortness of breath TECHNIQUE: Frontal and lateral views of the chest are obtained. FINDINGS: Scattered senescent parenchymal changes noted. Right basilar infiltrate and/or atelectasis. Heart size is stable. Borderline pulmonary venous congestion without overt failure. Mediastinal structures are stable and grossly unremarkable. No evidence for hilar prominence. Degenerative changes dorsal spine. IMPRESSION: 1. Right basilar infiltrate and/or atelectasis.
[2017-07-18] MEDS ORDERED: ASPIRIN 325 MG TAB PO STA (10:49)
[2017-07-18 11:48] LABS: Appearance,Urine Clear (Clear); Bilirubin,Urine Negative (Negative); Glucose,Urine (UA) Negative (Negative); Ketones,Urine Negative (Negative); Leukocyte Esterase,Urine Negative (Negative); Nitrite,Urine Negative (Negative); PH, Urine 5.5 (5.0-8.0); Protein,Urine Negative (Negative); Specific Gravity,Urine 1.021 (1.001-1.035); UA Billing (MACRO vs. MICRO) CHEM
[2017-07-18 12:27] VITALS: BP 142/73; PULSE 60; TEMP 97.6
== END 2017-07-18 13:24 | disposition home or self-care (01) ==
LOC: EC 09:16
DX: G45.9 Transient cerebral ischemic attack, unspecified (principal); F03.90 Unspecified dementia, unspecified severity, without behavioral disturbance, psychotic disturbance, mood disturbance, and anxiety; J98.11 Atelectasis; K21.9 Gastro-esophageal reflux disease without esophagitis; I10 Essential (primary) hypertension; Z81.8 Family history of other mental and behavioral disorders; Z79.899 Other long term (current) drug therapy
CPT/HCPCS: 36415; 70450; 71020; 80053; 81003; 82550; 82553; 83605; 83735; 84443; 84484; 85025; 85610; 85730; 99285